=== PATIENT | female | born 1995 | race Caucasian/White ===

== ENCOUNTER 2016-11-01 18:15 | Emergency (ER) | payer MEDICAID, OTHER ==
[2016-11-01 18:55] LABS: BILIRUBIN,URINE NEGATIVE (NEGATIVE)
[2016-11-01 19:01] LABS: UA CHARGE (STRIP ONLY) YES; UR CULTURE IF IND NOT INDICATED
[2016-11-01] MEDS ORDERED: HYDROcod/ACETAM 5/325 MG TABLET PO STA (19:58)
--- NOTE | 2016-11-01 20:02 | ED Physician Documentation ---
History of Present Illness - Stated complaint Stated Complaint: FEMALE /6WK OB - Chief complaint Chief Complaint: General - History obtained from History obtained from: Patient - History of Present Illness Timing: Other (G1 at 6 weeks gestation by LMP, since finding out she was 2 weeks ago she has had intermittent right lower quadrant pain, feeling weak with near syncopal episodes and occasional chest pain. There is no bleeding.) Review of Systems Constitutional: denies: Fever, Chills Nose: denies: Rhinorrhea / runny nose, Congestion Cardiac: denies: Palpitations, Pedal edema, Calf pain Respiratory: denies: Cough, Hemoptysis GI: reports: Nausea, Vomiting. 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 : None HEENT: None Psych: None Musculoskeletal: None Derm: None - Past Surgical History Past Surgical History: No - Present Medications Home Medications: Ambulatory Orders Medication Instructions Recorded Confirmed Cephalexin [Keflex] 500 mg PO Q6H #28 capsule 10/19/12 Ondansetron Odt [Zofran] 4 mg TL Q6H PRN #10 tablet 10/19/12 SULFAM/TRIM 800/160 Prepack 2 1 each PO BID #14 tablet 10/19/12 [BACTRIM DS 800/160 Prepack 2] - Allergies Allergies/Adverse Reactions: Allergies Allergy/AdvReac Type Severity Reaction Status Date / Time No Known Drug Allergies Allergy Verified 11/01/16 18:26 - Social History Does the pt smoke?: No Smoking Status: Never smoker Does the pt drink ETOH?: No Does the pt have substance abuse?: No - Immunizations Immunizations are current?: Yes - POLST Patient has POLST: No PD ED PE NORMAL - Vitals Vital signs reviewed: Yes - General General: Alert and oriented X 3, No acute distress - Neck Neck: Supple, no meningeal sign, No bony TTP - Cardiac Cardiac: RRR, No murmur - Respiratory Respiratory: No respiratory distress, Clear bilaterally - Abdomen Abdomen: Normal bowel sounds, Soft, Other (Mild right pelvic tenderness without surgical signs) - Extremities Extremities: No edema, No calf tenderness / cord - Neuro Neuro: Alert and oriented X 3, Normal speech - Psych Psych: Normal mood, Normal affect Results - Vitals Vitals: Vital Signs - 24 hr 11/01/16 11/01/16 18:24 21:11 Temperature 36.5 C Heart Rate 96 71 Respiratory 18 18 Rate Blood Pressure 125/69 125/76 O2 Saturation 100 100 Oxygen O2 Source Room air - Labs Labs: Laboratory Tests 11/01/16 11/01/16 11/01/16 18:37 20:21 20:21 WBC 11.6 H RBC 4.11 L Hgb 12.6 Hct 38.0 MCV 92.4 MCH 30.8 MCHC 33.3 RDW 13.4 Plt Count 221 MPV 8.8 Neut # 7.7 H Lymph # 2.8 [place] # 0.9 Eos # 0.0 Baso # 0.0 Absolute Nucleated RBC 0.00 Nucleated RBCs 0.0 Sodium 136 Potassium 3.5 Chloride 102 Carbon Dioxide 25 Anion Gap 9.0 BUN 8 Creatinine 0.5 Estimated GFR (MDRD) 156 Glucose 78 Calcium 9.3 Total Bilirubin 1.1 H AST 14 ALT 12 Alkaline Phosphatase 38 L Total Protein 7.5 Albumin 4.2 Globulin 3.3 Albumin/Globulin Ratio 1.3 Lipase 18 L HCG, Quant Urine Color YELLOW Urine Clarity CLEAR Urine pH 6.0 Ur Specific [place] 1.020 Urine Protein NEGATIVE Urine Glucose (UA) NEGATIVE Urine Ketones NEGATIVE Urine Occult Blood NEGATIVE Urine Nitrite NEGATIVE Urine Bilirubin NEGATIVE Urine Urobilinogen 0.2 (NORMAL) Ur Leukocyte Esterase NEGATIVE Ur Microscopic Review NOT INDICATED Urine Culture Comments NOT INDICATED Blood Type 11/01/16 11/01/16 20:21 20:21 WBC RBC Hgb Hct MCV MCH MCHC RDW Plt Count MPV Neut # Lymph # [place] # Eos # Baso # Absolute Nucleated RBC Nucleated RBCs Sodium Potassium Chloride Carbon Dioxide Anion Gap BUN Creatinine Estimated GFR (MDRD) Glucose Calcium Total Bilirubin AST ALT Alkaline Phosphatase Total Protein Albumin Globulin Albumin/Globulin Ratio Lipase HCG, Quant 90798.00 Urine Color Urine Clarity Urine pH Ur Specific [place] Urine Protein Urine Glucose (UA) Urine Ketones Urine Occult Blood Urine Nitrite Urine Bilirubin Urine Urobilinogen Ur Leukocyte Esterase Ur Microscopic Review Urine Culture Comments Blood Type A POSITIVE PD MEDICAL DECISION MAKING - ED course ED course: 21-year-old G1 at 6 weeks by dates presents with right lower quadrant pain, feeling faint, her workup here was negative for ectopic with an IUP seen on ultrasound and otherwise unremarkable labs and vital signs. The patient and family were counseled as to the diagnosis and need for follow- up. I counseled the patient with regard to signs and symptoms that would necessitate an urgent reevaluation in the emergency department. They understand they are welcome to return at any time if worse or if not improving as expected. This document was made in part using voice recognition software. While efforts are made to proofread this documents, sound alike and grammatical errors may occur. Departure - Departure Disposition: 01 Home, Self Care Clinical Impression: Threatened Condition: Good Record reviewed to determine appropriate education?: Yes Instructions: ED Miscarriage Poss Comments: Tylenol as needed for pain, follow-up with your OB, return if worse or if new symptoms develop.
[2016-11-01] MEDS ORDERED: HYDROcod/ACETAM 5/325 MG TABLET ONE (20:06)
[2016-11-01 20:36] LABS: BASOPHILS % (AUTO) 0.4 %; EOSINOPHILS % (AUTO) 0.3 %; HGB - HEMOGLOBIN 12.6 g/dL (12.0-16.0); LYMPHOCYTES # (AUTO) 2.8 10^3/uL (1.5-3.5); LYMPHOCYTES % (AUTO) 24.5 %; MEAN CORPUSCULAR HEMOGLOBIN 30.8 pg (27.0-31.0); MEAN CORPUSCULAR HGB CONC 33.3 g/dL (32.0-36.0); MEAN CORPUSCULAR VOLUME 92.4 fL (81.0-99.0); MEAN PLATELET VOLUME 8.8 fL (7.9-10.8); MONOCYTES # (AUTO) 0.9 10^3/uL (0.0-1.0); MONOCYTES % (AUTO) 8.1 %; NEUTROPHILS # (AUTO) 7.7 10^3/uL (1.5-6.6); NEUTROPHILS % (AUTO) 66.7 %; RED BLOOD COUNT 4.11 10^6/uL (4.20-5.40); RED CELL DISTRIBUTION WIDTH 13.4 % (12.0-15.0); UNCORRECTED WHITE BLOOD COUNT 11.6 x10^3/uL; WHITE BLOOD COUNT 11.6 x10^3/uL (4.8-10.8)
[2016-11-01 20:49] LABS: ALBUMIN/GLOBULIN RATIO 1.3 (1.0-2.2); BILIRUBIN,TOTAL 1.1 mg/dL (0.2-1.0); CALCIUM 9.3 mg/dL (8.5-10.3); CREATININE 0.5 mg/dL (0.4-1.0); POTASSIUM 3.5 mmol/L (3.5-5.0); TOTAL PROTEIN 7.5 g/dL (6.7-8.2)
[2016-11-01 21:12] VITALS: BP 125/76
--- NOTE | 2016-11-01 21:33 | Ultrasound Preliminary Report ---
Exam: US OB First Trimester IMPRESSION: 1. Single viable intrauterine at EGA 7 weeks 0 days with DEL 06/20/2017 based on composite measurements, which is concordant with clinical dates. [facility] SITE ID: [id number]
--- NOTE | 2016-11-01 21:35 | Ultrasound Report ---
EXAM: FIRST TRIMESTER OBSTETRIC ULTRASOUND (Less than 11 weeks) EXAM DATE: 11/01/2016 09:01 PM. CLINICAL HISTORY: RLQ pain, 6week. LMP: 09/12/2016. COMPARISONS: None. TECHNIQUE: Transabdominal and transvaginal ultrasound examination with static image documentation. CLINICAL DATES: EGA 7 weeks 1 day with DEL 06/19/2017 based on LMP. ASSESSMENT: Gestational Sac: Single intrauterine. Mean gestational sac diameter: 21.9 mm = 7 weeks 1 day. Embryo: CRL (crown-rump length) 7.6 mm = 6 weeks 6 days. Cardiac activity: 112 beats per minute. Yolk sac: 3 mm. Amniotic fluid: Not accurately assessed at this gestational age. Early placenta: Not visible at this gestational age. Other: No perigestational fluid collection demonstrated. MATERNAL STRUCTURES: Uterus: Anteverted. Unremarkable. Cervix: Closed. Right Ovary: 4.2 x 2.5 x 2.9 cm, corpus luteum measuring 2.7 x 2.0 x 2.1 cm.. Left Ovary: 3.5 x 2 x 1.9 cm, unremarkable. Free Fluid: None. Other: None. IMPRESSION: 1. Single viable intrauterine at EGA 7 weeks 0 days with DEL 06/20/2017 based on composite measurements, which is concordant with clinical dates. [facility] Referring Provider Line: [phone] SITE ID: [id number]
== END 2016-11-01 22:00 | disposition home or self-care (01) ==
LOC: ED 18:15
DX: O20.0 Threatened abortion (principal); Z3A.01 Less than 8 weeks gestation of pregnancy
CPT/HCPCS: 36415; 76801; 76817; 80053; 81003; 83690; 84702; 85025; 86900; 86901; 99283; A9270; 81001; 87086

== ENCOUNTER 2016-11-13 10:12 | Outpatient (CLI) | payer MEDICAID | END 2016-11-13 10:13 | LOC: LAB.R 10:12 | PROVIDERS: ATTEND Obstetrics & Gynecology | DX: Z36 Encounter for antenatal screening of mother (principal) | CPT/HCPCS: 87081; 87491; 87591 ==

== ENCOUNTER 2016-11-13 10:58 | Outpatient (CLI) | payer MEDICAID ==
[2016-11-13 11:55] LABS: BASOPHILS % (AUTO) 0.3 %; EOSINOPHILS % (AUTO) 0.3 %; HCT - HEMATOCRIT 37.5 % (37.0-47.0); HGB - HEMOGLOBIN 12.6 g/dL (12.0-16.0); LYMPHOCYTES # (AUTO) 1.6 10^3/uL (1.5-3.5); MEAN CORPUSCULAR HEMOGLOBIN 30.9 pg (27.0-31.0); MEAN CORPUSCULAR HGB CONC 33.7 g/dL (32.0-36.0); MEAN CORPUSCULAR VOLUME 91.7 fL (81.0-99.0); MEAN PLATELET VOLUME 8.8 fL (7.9-10.8); MONOCYTES # (AUTO) 0.5 10^3/uL (0.0-1.0); MONOCYTES % (AUTO) 6.1 %; NEUTROPHILS % (AUTO) 73.3 %; RED BLOOD COUNT 4.09 10^6/uL (4.20-5.40); RED CELL DISTRIBUTION WIDTH 13.7 % (12.0-15.0); UNCORRECTED WHITE BLOOD COUNT 8.2 x10^3/uL; WHITE BLOOD COUNT 8.2 x10^3/uL (4.8-10.8)
[2016-11-13 12:05] LABS: BILIRUBIN,URINE NEGATIVE (NEGATIVE)
[2016-11-13 12:05] LABS: BILIRUBIN,DIRECT 0.2 mg/dL (0.1-0.5); BILIRUBIN,TOTAL 1.3 mg/dL (0.2-1.0); TOTAL PROTEIN 7.8 g/dL (6.7-8.2)
[2016-11-13 12:19] LABS: WBC,URINE 0-3 /HPF (0-5)
== END 2016-11-13 10:59 | disposition home or self-care (01) ==
LOC: LAB 10:58
PROVIDERS: ATTEND Obstetrics & Gynecology
DX: Z36 Encounter for antenatal screening of mother (principal)
CPT/HCPCS: 36415; 80076; 81001; 85025; 86762; 86780; 86850; 86900; 86901; 87340; 87389

== ENCOUNTER 2016-12-22 16:41 | Emergency (ER) | payer MEDICAID ==
[2016-12-22 16:46] VITALS: BP 107/65
--- NOTE | 2016-12-23 00:14 | ED Physician Documentation ---
History of Present Illness - Stated complaint Stated Complaint: 13WK PREG/ABD PX/CHILLS - Chief complaint Chief Complaint: Abd Pain - Additonal information Additional information: patient not in room when I went to see her. 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 : None HEENT: None Psych: None Musculoskeletal: None Derm: None - Past Surgical History Past Surgical History: No - Present Medications Home Medications: Ambulatory Orders Medication Instructions Recorded Confirmed Pnv No.115/Iron Fumarate/FA 1 tab PO DAILY 12/22/16 12/22/16 [ 19 Chewable Tablet] - Allergies Allergies/Adverse Reactions: Allergies Allergy/AdvReac Type Severity Reaction Status Date / Time No Known Drug Allergies Allergy Verified 11/01/16 18:26 - Social History Does the pt smoke?: No Smoking Status: Never smoker Does the pt drink ETOH?: No Does the pt have substance abuse?: No - Immunizations Immunizations are current?: Yes - POLST Patient has POLST: No Results - Vitals Vitals: Vital Signs - 24 hr 12/22/16 16:44 Temperature 36.8 C Heart Rate 77 Respiratory 18 Rate Blood Pressure 107/65 O2 Saturation 99 Oxygen O2 Source Room air Departure - Departure Disposition: ED Left Without Being Seen Discharge Date/Time: 12/22/16 18:09
== END 2016-12-22 18:09 | disposition left against medical advice (07) ==
LOC: ED 16:41
DX: R10.9 Unspecified abdominal pain (principal); Z34.91 Encounter for supervision of normal pregnancy, unspecified, first trimester; Z3A.13 13 weeks gestation of pregnancy; Z53.21 Procedure and treatment not carried out due to patient leaving prior to being seen by health care provider

== ENCOUNTER 2017-01-18 18:11 | Outpatient (CLI) | payer MEDICAID ==
[2017-01-18 18:27] LABS: BASOPHILS % (AUTO) 0.1 %; EOSINOPHILS % (AUTO) 0.2 %; HCT - HEMATOCRIT 37.3 % (37.0-47.0); HGB - HEMOGLOBIN 12.6 g/dL (12.0-16.0); LYMPHOCYTES # (AUTO) 2.4 10^3/uL (1.5-3.5); MEAN CORPUSCULAR HEMOGLOBIN 31.5 pg (27.0-31.0); MEAN CORPUSCULAR HGB CONC 33.8 g/dL (32.0-36.0); MEAN CORPUSCULAR VOLUME 93.2 fL (81.0-99.0); MEAN PLATELET VOLUME 8.5 fL (7.9-10.8); MONOCYTES # (AUTO) 0.8 10^3/uL (0.0-1.0); MONOCYTES % (AUTO) 7.6 %; NEUTROPHILS # (AUTO) 7.7 10^3/uL (1.5-6.6); NEUTROPHILS % (AUTO) 70.1 %; RED CELL DISTRIBUTION WIDTH 13.1 % (12.0-15.0)
[2017-01-18 18:44] LABS: ALBUMIN/GLOBULIN RATIO 1.1 (1.0-2.2); BILIRUBIN,TOTAL 0.9 mg/dL (0.2-1.0); CALCIUM 9.2 mg/dL (8.5-10.3); CREATININE 0.5 mg/dL (0.4-1.0); POTASSIUM 3.6 mmol/L (3.5-5.0); TOTAL PROTEIN 7.3 g/dL (6.7-8.2)
[2017-01-18 18:49] LABS: HEMOGLOBIN A1C 0.38 g/dL
== END 2017-01-18 18:12 | disposition home or self-care (01) ==
LOC: LAB 18:11
PROVIDERS: ATTEND Family Medicine
DX: K64.9 Unspecified hemorrhoids (principal); R53.83 Other fatigue; Z33.1 Pregnant state, incidental
CPT/HCPCS: 36415; 80053; 83036; 85025

== ENCOUNTER 2017-02-05 12:27 | Outpatient (CLI) | payer MEDICAID ==
--- NOTE | 2017-02-05 16:29 | Ultrasound Report ---
OB ULTRASOUND: 02/05/2017 CLINICAL INDICATION: anatomy. TECHNIQUE: Real-time scanning was performed with sales representative door to door static images obtained. LAST MENSTRUAL PERIOD 09/13/2016 Clinical Age 20 weeks 5 days US Age 21 weeks 0 days EFW [place] 363 grams EFW% [place]lock -- Heart Rate 144 bpm EDC 06/20/2017 US EDC 06/18/2017 BPD [place] 21 weeks 4 days; Mean mm 51 HC [place] 21 weeks 5 days; Mean mm 194 AC [place] 20 weeks 5 days; Mean mm 155 FL [place] 20 weeks 1 day; Mean mm 32 Presentation breech Placental Location anterior Cervical Length 4.65 cm Amniotic Fluid -- FINDINGS: There is a single viable intrauterine gestation, in breech presentation. heart rate is 144 BPM. The placenta is anterior, without evidence of previa. Amniotic fluid volume is subjectively normal. By size, the fetus measures 21 weeks 0 days (20 weeks 5 days by previous sonogram, 20 weeks 6 days by LMP). The following anatomic structures were visualized and appear normal: The intracranial contents, including the ventricles and posterior fossa; the spine; the heart, including 4-chamber view and outflow tracts, and diaphragm; the abdominal contents, including the stomach, the bilateral kidneys, and urinary bladder, as well as a normal 3-vessel cord insertion; 4 limbs. The facial structures are poorly visualized, due to positioning. No free fluid or adnexal lesion is appreciated. IMPRESSION: SINGLE VIABLE INTRAUTERINE GESTATION, WITH SIZE IN KEEPING WITH LMP DATING. SUBOPTIMAL VISUALIZATION OF FACIAL STRUCTURES SECONDARY TO POSITIONING. OTHERWISE, NORMAL ANATOMIC SURVEY. [facility]
== END 2017-02-05 12:28 | disposition home or self-care (01) ==
LOC: DI 12:27
PROVIDERS: ATTEND Obstetrics & Gynecology
DX: Z36.9 Encounter for antenatal screening, unspecified (principal)
CPT/HCPCS: 76811

== ENCOUNTER 2017-03-13 16:03 | Outpatient (CLI) | payer MEDICAID ==
[2017-03-13 16:30] VITALS: BP 107/59
[2017-03-13 17:11] LABS: BILIRUBIN,URINE NEGATIVE (NEGATIVE); GLUCOSE, URINE (UA) NEGATIVE (NEGATIVE); KETONES,URINE (UA) NEGATIVE (NEGATIVE); LEUKOCYTE ESTERASE, URINE MODERATE (NEGATIVE); NITRITE,URINE NEGATIVE (NEGATIVE); OCCULT BLOOD,URINE NEGATIVE (NEGATIVE); PROTEIN,URINE NEGATIVE (NEGATIVE); UROBILINOGEN,URINE 0.2 (NORMAL) E.U./dL (NORMAL)
[2017-03-13 17:19] LABS: CLARITY,URINE HAZY (CLEAR)
[2017-03-13] MEDS ORDERED: WITCH HAZEL/GLYCERIN 1 EACH MED..PAD TOP PRN (17:22)
[2017-03-13 17:51] LABS: BACTERIA,URINE Few /HPF (None Seen); RBC,URINE 0-5 /HPF (0-5); SQUAMOUS EPITHELIAL CELL,UR MOD Squamous (<= Few)
--- NOTE | 2017-03-14 11:02 | PREOP HISTORY & PHYSICAL ---
DATE OF SERVICE: 03/13/2017 Physician: Cristo Mora MD IDENTIFICATION: A 21-year-old G1, P0 female who is 26 weeks 1 day confirmed with ultrasound early julio harden. CHIEF COMPLAINT: Spotting. HISTORY OF PRESENT ILLNESS: Patient states roughly 1 week ago she had some bright red spotting and t hen again this evening. She denies any trauma or any other issues at this time. She has had an ultrasound kamila t showed no evidence of a previa on ultrasound. She denies any regular contractions. She does have some pain and burning with urination. She complains of a lot of itching in the vaginal area. On examination, FFN was obtained and her cervix was noted to be long, thick, and closed. Wet mount showed evidence of numerous hyphae. Her urinalysis showed evidence of leukocyte esterase. She had moderate leukocyte esterase. Remainder of the UA is pending at this time. IMPRESSION 1. A 21-year-old G1, P0 female. 2. 26 weeks 1 day. 3. No evidence of any cervical change. 4. Vaginal candidiasis. 5. Possible urinary tract infection. PLAN 1. We will administer Diflucan 150 mg p.o. now. 2. We will start her on Macrobid 1 p.o. b.i.d. for 5 days; await results. 3. Patient has an appointment to be seen in the clinic on . Patient strongly encouraged to keep that appointment. She was told to minimize the amount of carbohydrates in her diet. She is also to try Lactobacillus such as in yogurt and/or kombucha. TD: 03/13/2017 19:25
== END 2017-03-13 17:50 | disposition home or self-care (01) ==
LOC: WFO 16:03 → FBP 16:04 → WFO 17:50
PROVIDERS: ATTEND Obstetrics & Gynecology
DX: O98.812 Other maternal infectious and parasitic diseases complicating pregnancy, second trimester (principal); B37.3 Candidiasis of vulva and vagina; Z3A.26 26 weeks gestation of pregnancy; O99.89 Other specified diseases and conditions complicating pregnancy, childbirth and the puerperium; R30.0 Dysuria
CPT/HCPCS: 81001; 82731; 87220; A9270; 87086; 99213

== ENCOUNTER 2017-03-22 13:42 | Outpatient (CLI) | payer MEDICAID ==
--- NOTE | 2017-03-23 09:06 | Ultrasound Report ---
DATE OF SERVICE: 03/22/2017 FOLLOWUP OB ULTRASOUND: 03/22/2017 COMPARISON: OB ultrasound 02/05/2017. INDICATION: Followup for poorly visualized facial features on anatomic screen. TECHNIQUE: Sonographic evaluation of single intrauterine . FINDINGS: Single intrauterine . heart rate 157 beats per minute. EGA by 02/05/2017 ultrasound, 27 weeks 3 days with DEL 06/18/2017. EGA by current ultrasound, 28 weeks 5 days with DEL 06/09/2017. growth appears appropriate. Presentation: Cephalic. Placental position anterior without evidence of placenta previa. PRATEEK: 18.5. Amniotic fluid appears visually adequate. The facial features are now well evaluated and have a normal appearance. Biparietal diameter 7.4 cm corresponds to 29 weeks 4 days. Head circumference 27.0 cm corresponds to 29 weeks 3 days. Abdominal circumference 23.6 cm corresponds to 27 weeks 6 days. Femur length 5.2 cm corresponds to 27 weeks 5 days. Estimated weight 1175 grams corresponds to the 64th percentile. IMPRESSION: Adequate followup evaluation for facial features. Appropriate growth - single intrauterine . TD: 03/22/2017 22:17 MTDD
== END 2017-03-22 13:43 | disposition home or self-care (01) ==
LOC: DI 13:42
PROVIDERS: ATTEND Obstetrics & Gynecology
DX: Z36.2 Encounter for other antenatal screening follow-up (principal)
CPT/HCPCS: 76816

== ENCOUNTER 2017-03-29 10:14 | Outpatient (CLI) | payer MEDICAID ==
[2017-03-29 11:41] LABS: HGB - HEMOGLOBIN 12.2 g/dL (12.0-16.0); MEAN CORPUSCULAR HEMOGLOBIN 33.2 pg (27.0-31.0); MEAN CORPUSCULAR HGB CONC 35.1 g/dL (32.0-36.0); MEAN CORPUSCULAR VOLUME 94.5 fL (81.0-99.0); MEAN PLATELET VOLUME 8.6 fL (7.9-10.8); RED BLOOD COUNT 3.67 10^6/uL (4.20-5.40); RED CELL DISTRIBUTION WIDTH 13.1 % (12.0-15.0); WHITE BLOOD COUNT 9.7 x10^3/uL (4.8-10.8)
== END 2017-03-29 10:15 | disposition home or self-care (01) ==
LOC: LAB 10:14
PROVIDERS: ATTEND Obstetrics & Gynecology
DX: Z34.90 Encounter for supervision of normal pregnancy, unspecified, unspecified trimester (principal)
CPT/HCPCS: 36415; 82950; 86850

== ENCOUNTER 2017-04-13 15:58 | Emergency (ER) | payer MEDICAID ==
[2017-04-13 16:04] VITALS: BP 117/70
[2017-04-13 16:44] LABS: BASOPHILS % (AUTO) 0.3 %; EOSINOPHILS # (AUTO) 0.1 10^3/uL (0.0-0.7); EOSINOPHILS % (AUTO) 0.6 %; HGB - HEMOGLOBIN 12.1 g/dL (12.0-16.0); LYMPHOCYTES # (AUTO) 2.5 10^3/uL (1.5-3.5); LYMPHOCYTES % (AUTO) 19.3 %; MEAN CORPUSCULAR HEMOGLOBIN 32.4 pg (27.0-31.0); MEAN CORPUSCULAR HGB CONC 33.8 g/dL (32.0-36.0); MEAN CORPUSCULAR VOLUME 95.9 fL (81.0-99.0); MEAN PLATELET VOLUME 8.8 fL (7.9-10.8); MONOCYTES # (AUTO) 1.1 10^3/uL (0.0-1.0); MONOCYTES % (AUTO) 8.7 %; NEUTROPHILS # (AUTO) 9.1 10^3/uL (1.5-6.6); NEUTROPHILS % (AUTO) 71.1 %; PLT - PLATELET COUNT 189 10^3/uL (130-450); RED BLOOD COUNT 3.72 10^6/uL (4.20-5.40); WHITE BLOOD COUNT 12.8 x10^3/uL (4.8-10.8)
[2017-04-13 16:57] LABS: ALBUMIN 3.1 g/dL (3.2-5.5); ALBUMIN/GLOBULIN RATIO 0.9 (1.0-2.2); BILIRUBIN,TOTAL 0.5 mg/dL (0.2-1.0); CALCIUM 8.6 mg/dL (8.5-10.3); CREATININE 0.5 mg/dL (0.4-1.0); TOTAL PROTEIN 6.6 g/dL (6.7-8.2)
--- NOTE | 2017-04-13 17:57 | ED Physician Documentation ---
History of Present Illness - Stated complaint Stated Complaint: RECTAL BLEEDING/30WK OB - Chief complaint Chief Complaint: Abd Pain - History obtained from History obtained from: Patient, Family - History of Present Illness Timing: Today Pain level max: 0 Pain level now: 0 Improved by: nothing Worsened by: BM - Additonal information Additional information: Patient is a 1 para 0 who complains of rectal bleeding earlier today, states mostly bright red but occasional clots. Also is complaining of clear discharge, unclear if this is vaginal or rectal. States has had rectal fissures in the past. Is not having any pain. States is not constipated. Has had a colonoscopy in the past as well which was reportedly normal. 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 HEENT: None Psych: None Musculoskeletal: None Derm: None - Past Surgical History Past Surgical History: No - Present Medications Home Medications: Ambulatory Orders Medication Instructions Recorded Confirmed Pnv No.115/Iron Fumarate/FA 1 tab PO DAILY 12/22/16 04/13/17 [ 19 Chewable Tablet] - Allergies Allergies/Adverse Reactions: Allergies Allergy/AdvReac Type Severity Reaction Status Date / Time No Known Drug Allergies Allergy Verified 04/13/17 16:04 - Social History Does the pt smoke?: No Smoking Status: Never smoker Does the pt drink ETOH?: No Does the pt have substance abuse?: No - Immunizations Immunizations are current?: Yes - POLST Patient has POLST: No PD ED PE NORMAL - Vitals Vital signs reviewed: Yes - General General: Alert and oriented X 3, No acute distress - HEENT HEENT: Moist mucous membranes - Neck Neck: Supple, no meningeal sign - Cardiac Cardiac: RRR, Strong equal pulses - Respiratory Respiratory: No respiratory distress, Clear bilaterally - Abdomen Abdomen: Soft, Non tender, Non distended - Female Female : 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 no bleeding. no fissures. no stool in rectal vault.) - Derm Derm: Warm and dry - Neuro Neuro: Alert and oriented X 3 - Psych Psych: Normal mood, Normal affect Results - Vitals Vitals: Vital Signs - 24 hr 04/13/17 16:00 Temperature 36.6 C Heart Rate 89 Respiratory 16 Rate Blood Pressure 117/70 O2 Saturation 99 Oxygen O2 Source Room air - Labs Labs: Laboratory Tests 04/13/17 04/13/17 04/13/17 16:35 16:35 16:35 WBC 12.8 H RBC 3.72 L Hgb 12.1 Hct 35.7 L MCV 95.9 MCH 32.4 H MCHC 33.8 RDW 13.0 Plt Count 189 MPV 8.8 Neut # 9.1 H Lymph # 2.5 [place] # 1.1 H Eos # 0.1 Baso # 0.0 Absolute Nucleated RBC 0.00 Nucleated RBC % 0.0 PT INR APTT Sodium 136 Potassium 3.8 Chloride 103 Carbon Dioxide 24 Anion Gap 9.0 BUN 10 Creatinine 0.5 Estimated GFR (MDRD) 156 Glucose 87 Calcium 8.6 Total Bilirubin 0.5 AST 17 ALT 16 Alkaline Phosphatase 61 Total Protein 6.6 L Albumin 3.1 L Globulin 3.5 Albumin/Globulin Ratio 0.9 L Lipase 20 L Blood Type A POSITIVE Antibody Screen NEGATIVE 04/13/17 16:35 WBC RBC Hgb Hct MCV MCH MCHC RDW Plt Count MPV Neut # Lymph # [place] # Eos # Baso # Absolute Nucleated RBC Nucleated RBC % PT 11.0 INR 1.0 APTT 23.4 L Sodium Potassium Chloride Carbon Dioxide Anion Gap BUN Creatinine Estimated GFR (MDRD) Glucose Calcium Total Bilirubin AST ALT Alkaline Phosphatase Total Protein Albumin Globulin Albumin/Globulin Ratio Lipase Blood Type Antibody Screen PD MEDICAL DECISION MAKING - ED course Complexity details: reviewed old records, reviewed results, re-evaluated patient , considered differential, d/w patient, d/w home planning consultant salesperson ([id number] - Dr. Mora (OB) and recommends send to OB. ) ED course: Patient is a 21-year-old female who presents to the emergency department with reported rectal bleeding. No acute findings on laboratory testing, hemoglobin is stable from prior. Vital signs are stable. No active bleeding in the emergency department. She also has clear discharge, unclear if this is vaginal or rectal, discussed the case with OB, Dr. Mora, who recommends sending her to OB for further evaluation. Patient will be sent to OB. This document was made in part using voice recognition software. While efforts are made to proofread this document, sound alike and grammatical errors may occur. Departure - Departure Disposition: 01 Home, Self Care Clinical Impression: Hematochezia Condition: Good Instructions: ED Hematochezia Stable Follow-Up: Jolene Alvarez MD [Primary Care Provider] - Comments: Go directly to OB today for further eval today. I spoke with Dr. Mora Discharge Date/Time: 04/13/17 18:15
== END 2017-04-13 18:15 | disposition home or self-care (01) ==
LOC: ED 15:58
DX: O26.893 Other specified pregnancy related conditions, third trimester (principal); Z3A.30 30 weeks gestation of pregnancy; K92.1 Melena; O22.43 Hemorrhoids in pregnancy, third trimester
CPT/HCPCS: 36415; 80053; 81001; 81003; 82270; 83690; 85025; 85610; 85730; 86850; 86900; 86901; 87086; 99213; 99283

== ENCOUNTER 2017-04-13 18:29 | Outpatient (CLI) | payer MEDICAID ==
[2017-04-13 18:46] VITALS: BP 113/71
[2017-04-13 20:09] LABS: BILIRUBIN,URINE NEGATIVE (NEGATIVE); CLARITY,URINE CLEAR (CLEAR); GLUCOSE, URINE (UA) NEGATIVE (NEGATIVE); KETONES,URINE (UA) NEGATIVE (NEGATIVE); LEUKOCYTE ESTERASE, URINE NEGATIVE (NEGATIVE); NITRITE,URINE NEGATIVE (NEGATIVE); OCCULT BLOOD,URINE NEGATIVE (NEGATIVE); PROTEIN,URINE NEGATIVE (NEGATIVE); UROBILINOGEN,URINE 0.2 (NORMAL) E.U./dL (NORMAL)
--- NOTE | 2017-04-16 16:34 | CONSULTATION NOTE ---
DATE OF SERVICE: 04/13/2017 Physician: Cristo Mora MD IDENTIFICATION: A 21-year-old G1, P0 female, EDC is 06/19/2017, 30.4weeks. Rh Positive CHIEF COMPLAINT: Rectal bleeding and fluid loss. HISTORY OF PRESENT ILLNESS: The patient states that she had 3 bowel motions today starting at 10 o'clock, at which time she was noted to have some dark red blood accompanying this. She states that she has a history of having had rectal bleeding in the past. She was recently seen in the clinic, at which time she was found to have a rectal fissure. She has had colonoscopy as workup for this. She also notes this vaginal fluid leaking which has been going on for up to a month. She denies contractions at this time. PAST MEDICAL HISTORY: Positive for rectal bleeding, unknown cause. PAST SURGICAL HISTORY: Colonoscopy. CURRENT MEDICATIONS: vitamins. ALLERGIES: NONE KNOWN. HABITS: Denies use of alcohol, tobacco, street or addictive drugs. 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 FAMILY HISTORY: Positive for mother with autoimmune disease, who had diabetes. She has a father with heart disease. PHYSICAL EXAMINATION VITAL SIGNS: Temperature is 97.7, blood pressure is 113/71. GENERAL: Well-developed, well-nourished white female, in no acute distress. HEENT: Pupils are equal, round. Extraocular muscles are intact. Mouth is clear. Thyroid is not palpably enlarged. HEART: Regular rate and rhythm without murmurs. LUNGS: Lung cedeno are clear without rales or wheezes. ABDOMEN: Soft. The uterus is nontender. GENITOURINARY: Speculum examination shows a negative Pool, Fern, and Nitrazine. The cervix appears to be closed at this particular time. RECTA: Examination showed minimal to no blood available. This was sent for guaiac. LABORATORY DATA: White count 12.8, hemoglobin is 12.1, hematocrit is 35.7, platelets are 189. Electrolytes are all within normal limits. Currently a urinalysis is pending. IMPRESSION: A 21-year-old G1, P0, female, 30.4 weeks with rectal bleeding of unknown etiology. She has had a workup. Her hemoglobin is stable, and she is stable at this time. Possible internal hemorrhoids. PLAN: Plan will be to use Proctocort suppositories 30 mg b.i.d. for the next 14 days. She is to follow up in the clinic. TD: 04/13/2017 22:03 ODILIA
== END 2017-04-13 20:16 | disposition home or self-care (01) ==
LOC: FBP 18:29 → WFO 18:29
PROVIDERS: ATTEND Obstetrics & Gynecology
DX: O22.43 Hemorrhoids in pregnancy, third trimester (principal); Z3A.30 30 weeks gestation of pregnancy
CPT/HCPCS: 81001; 81003; 82270; 87086; 99213

== ENCOUNTER 2017-05-10 15:22 | Outpatient (CLI) | payer MEDICAID ==
[2017-05-10 15:43] VITALS: BP 116/57
[2017-05-10 16:04] LABS: BASOPHILS % (AUTO) 0.3 %; EOSINOPHILS # (AUTO) 0.1 10^3/uL (0.0-0.7); EOSINOPHILS % (AUTO) 0.6 %; HGB - HEMOGLOBIN 11.7 g/dL (12.0-16.0); LYMPHOCYTES % (AUTO) 17.2 %; MEAN CORPUSCULAR HEMOGLOBIN 31.5 pg (27.0-31.0); MEAN CORPUSCULAR HGB CONC 33.3 g/dL (32.0-36.0); MEAN CORPUSCULAR VOLUME 94.8 fL (81.0-99.0); MEAN PLATELET VOLUME 8.5 fL (7.9-10.8); MONOCYTES # (AUTO) 1.1 10^3/uL (0.0-1.0); MONOCYTES % (AUTO) 9.3 %; NEUTROPHILS # (AUTO) 8.3 10^3/uL (1.5-6.6); NEUTROPHILS % (AUTO) 72.6 %; PLT - PLATELET COUNT 165 10^3/uL (130-450); RED BLOOD COUNT 3.71 10^6/uL (4.20-5.40); RED CELL DISTRIBUTION WIDTH 12.8 % (12.0-15.0); WHITE BLOOD COUNT 11.4 x10^3/uL (4.8-10.8)
[2017-05-10 16:37] LABS: CREATININE,URINE 28.3 mg/dL; TOTAL PROTEIN,URINE TIMED < 6 mg/dL
== END 2017-05-10 16:23 | disposition home or self-care (01) ==
LOC: WFO 15:22 → FBP 15:24 → WFO 16:23
PROVIDERS: ATTEND Obstetrics & Gynecology
DX: O26.893 Other specified pregnancy related conditions, third trimester (principal); Z3A.34 34 weeks gestation of pregnancy; R03.0 Elevated blood-pressure reading, without diagnosis of hypertension
CPT/HCPCS: 36415; 59025; 82570; 83615; 84156; 84450; 84550; 85025

== ENCOUNTER 2017-05-17 11:42 | Outpatient (CLI) | payer MEDICAID | END 2017-05-17 11:43 | disposition home or self-care (01) | LOC: LAB 11:42 | PROVIDERS: ATTEND Obstetrics & Gynecology | DX: Z3A.35 35 weeks gestation of pregnancy (principal) | CPT/HCPCS: 36415; 82239 ==

== ENCOUNTER 2017-05-24 16:27 | Outpatient (CLI) | payer MEDICAID | END 2017-05-24 23:59 | disposition home or self-care (01) | LOC: LAB.R 16:27 | PROVIDERS: ATTEND Obstetrics & Gynecology | DX: Z36.9 Encounter for antenatal screening, unspecified (principal) | CPT/HCPCS: 87081 ==

== ENCOUNTER 2017-06-13 19:45 | Outpatient (CLI) | payer MEDICAID ==
[2017-06-13 20:11] VITALS: BP 124/68
== END 2017-06-13 21:15 | disposition home or self-care (01) ==
LOC: WFO 19:45 → FBP 19:47 → WFO 21:15
PROVIDERS: ATTEND Obstetrics & Gynecology
DX: Z34.03 Encounter for supervision of normal first pregnancy, third trimester (principal)
CPT/HCPCS: 99213

== ENCOUNTER 2017-06-18 15:17 | Outpatient (CLI) | payer MEDICAID ==
[2017-06-18 15:42] VITALS: BP 118/75
== END 2017-06-18 16:35 | disposition home or self-care (01) ==
LOC: FBP 15:17 → WFO 15:17
PROVIDERS: ATTEND Obstetrics & Gynecology
DX: Z34.03 Encounter for supervision of normal first pregnancy, third trimester (principal)
CPT/HCPCS: 99213

== ENCOUNTER 2017-06-19 17:01 | Inpatient (IN) | payer MEDICAID ==
[2017-06-19 18:13] LABS: RUPTURE OF MEMBRANES PLUS POSITIVE (NEGATIVE)
[2017-06-19] MEDS ORDERED: SODIUM CHLORIDE FLUSH 0.9% 10 ML SYRINGE IVP PRN (18:45)
--- NOTE | 2017-06-19 18:52 | HISTORY & PHYSICAL EXAMINATION ---
Admit History - Instructions Ak Chin/Slash: -Left hand click circles element as positive or present. -Right hand click slashes element as negative or not present. - Visit Reason Visit Reason: Membranes rupture (Pt developed leeking of vaginal fluid at 0730 this AM. continued to have vaginal fluid down her leg. presented this PM about 1710. Positive ROM+) - : 1 Parity: 0 Premature: 0 Ectopic: 0 : 0 Care: positive: [facility] (Pt has been seen since 8 weeks of pregnency with 14 visits. Labs A+, 138 50 gm, rhubella NONIMMUNE) Complications This : positive: None Smoking Status: Never smoker - Mother's Labs Mother's Blood Type: positive: A Mother's RH: positive: Positive GBS: positive: Group B Step Negative Rubella Status: positive: Non-immune Meds/Allgy - Home Medications Home Medications: Ambulatory Orders Medication Instructions Recorded Confirmed Pnv No.115/Iron Fumarate/FA 1 tab PO DAILY 12/22/16 04/13/17 [ 19 Chewable Tablet] - Allergies Allergies/Adverse Reactions: Allergies Allergy/AdvReac Type Severity Reaction Status Date / Time No Known Drug Allergies Allergy Verified 04/13/17 16:04 Physical - Abdominal Exam Vital Signs: Temp Pulse Resp BP Pulse Ox 36.9 C 70 16 136/71 H 99 06/19/17 17:10 06/19/17 17:10 06/19/17 17:10 06/19/17 17:10 06/19/17 17:10 Contraction Intensity: positive: Irritability Uterine Resting Tone: positive: Soft - Monitoring Strip Review: positive: Category I - Presentation Presentation: positive: Vertex - Vaginal Exam Membranes: positive: Membranes ruptured (Positive ROM+) Dilation (in cm): 0 Effacement (%): 75 Station: positive: -3 Cervical Position: positive: Posterior - Speculum Exam Speculum Exam Performed: positive: Yes Findings: positive: Gross leak Plan for Labor - Plan For Labor I expect patient to be DC'd or transferred within 96 hours.: Yes Plan for Labor: Pt is a 22 yo EDC 06/19/2017 by LMP and 8 week US. SROM with out labor and unfavorable Cx Cervidel for cervical ripening.
[2017-06-19] MEDS ORDERED: TERBUTALINE 1 MG/ML VIAL SUBQ SCH (19:00)
[2017-06-19] MEDS ORDERED: DINOPROSTONE 10 MG SUPP VG SCH (19:06)
[2017-06-19] MEDS: LACTATED RINGERS 1,000 ML IV SCH (20:00)
[2017-06-19 20:39] LABS: BASOPHILS # (AUTO) 0.1 10^3/uL (0.0-0.1); BASOPHILS % (AUTO) 0.7 %; EOSINOPHILS # (AUTO) 0.1 10^3/uL (0.0-0.7); EOSINOPHILS % (AUTO) 0.9 %; HGB - HEMOGLOBIN 12.5 g/dL (12.0-16.0); LYMPHOCYTES # (AUTO) 2.9 10^3/uL (1.5-3.5); LYMPHOCYTES % (AUTO) 24.5 %; MEAN CORPUSCULAR HEMOGLOBIN 31.8 pg (27.0-31.0); MEAN CORPUSCULAR HGB CONC 33.7 g/dL (32.0-36.0); MEAN CORPUSCULAR VOLUME 94.1 fL (81.0-99.0); MEAN PLATELET VOLUME 10.4 fL (7.9-10.8); NEUTROPHILS # (AUTO) 7.9 10^3/uL (1.5-6.6); NEUTROPHILS % (AUTO) 65.9 %; PLT - PLATELET COUNT 163 10^3/uL (130-450); RED BLOOD COUNT 3.94 10^6/uL (4.20-5.40); RED CELL DISTRIBUTION WIDTH 12.8 % (12.0-15.0)
[2017-06-19 20:55] LABS: PLATELET ESTIMATE, MANUAL NORMAL (130-450,000) (NORMAL); PLATELET MORPHOLOGY RARE GIANT PLATELETS (NORMAL); RBC MORPHOLOGY (MULTIPLE) NORMAL APPEARANCE (NORMAL)
[2017-06-20] MEDS: fentaNYL 100 MCG/2 ML VIAL IVP PRN ×2 (02:35→12:01)
[2017-06-20] MEDS: LACTATED RINGERS 1,000 ML IV SCH ×4 (03:00→20:48)
[2017-06-20] MEDS ORDERED: miSOPROStol 100 MCG TABLET BC SCH (08:00)
--- NOTE | 2017-06-20 10:22 | PROVIDER PROGRESS NOTE ---
Labor Progress Note - Uterine Monitoring Uterine Monitoring Mode: positive: External toco Contraction Frequency (min/apart): + 7-8 Min Contraction Intensity: positive: Mild (Palpation finds very weak contractions, patient complains of intense back pain.) Uterine Resting Tone: positive: Soft - Monitoring Monitor Mode: positive: Doppler/auscultation Heart Rate Baseline: [id number] Heart Rate Variability: positive: Moderate (6-25 bmp) Accelerations: positive: Present, 15x15 Decelerations: positive: None Strip Review: positive: Category I - Vaginal Exam Dilation (in cm): 1 Effacement (%): 70% Station: -3 (I initially attempted physical examination but the patient complained and requested that I stop. Exam listed is from the patient's nurse) - Labor Progress Note Labor Progress Note/Additional Text: Patient has been ruptured for over 24 hours and therefore qualifies for antibiotics as a prolonged ROM. Ancef was chosen for broad coverage. Patient reports a very sensitive perineum and on my exam there were flecks of white discharge consistent with Johana. Single dose of Diflucan was ordered. We will begin Cytotec oral induction at a dose of 25 mcg every 4 hours. Oral dosing is chosen to avoid vaginal discomfort secondary to Johana vaginitis. This dose will advance to 50 mcg an hour if tolerable. If pain remains an issue we will investigate a early epidural. Reviewed plan with the patient and nursing. Received a morning out brief by Dr. Mora concerning this patient.
--- NOTE | 2017-06-20 10:28 | PROVIDER PROGRESS NOTE ---
Subjective - Prog Note Date Prog Note Date: 06/20/17 Prog Note Time: 11:30 - Subjective Pt reports feeling: No change Subjective: Patient resting quietly in bed. heart tracing remains category 1 with only occasional contractions. We will increase Cytotec oral dosing to 50 mcg every 4 hours. Ancef antibiotics will be started. Objective - Vital Signs/Intake & Output Intake & Output: Intake & Output 06/17/17 06/18/17 06/19/17 06/20/17 23:59 23:59 23:59 23:59 Intake Total 1999 Balance 1999 - Lab Results Fish Bones: 06/19/17 20:00 Other Labs: Lab Results x24hrs 06/19/17 06/19/17 Range/Units 20:00 17:45 WBC 12.0 H (4.8-10.8) x10^3/uL RBC 3.94 L (4.20-5.40) 10^6/uL Hgb 12.5 (12.0-16.0) g/dL Hct 37.1 (37.0-47.0) % MCV 94.1 (81.0-99.0) fL MCH 31.8 H (27.0-31.0) pg MCHC 33.7 (32.0-36.0) g/dL RDW 12.8 (12.0-15.0) % Plt Count 163 (130-450) 10^3/uL MPV 10.4 (7.9-10.8) fL Neut # 7.9 H (1.5-6.6) 10^3/uL Lymph # 2.9 (1.5-3.5) 10^3/uL Hunt # 1.0 (0.0-1.0) 10^3/uL Eos # 0.1 (0.0-0.7) 10^3/uL Baso # 0.1 (0.0-0.1) 10^3/uL Absolute Nucleated RBC 0.00 x10^3/uL Nucleated RBC % 0.0 /100WBC Manual Slide Review Indicated WBC Morphology NORMAL APPEARANCE (NORMAL) Platelet Estimate NORMAL (130-450,000) (NORMAL) Platelet Morphology RARE GIANT PLATELETS (NORMAL) RBC Morph Micro Appear NORMAL APPEARANCE (NORMAL) Membranes Rupture POSITIVE A (NEGATIVE)
[2017-06-20] MEDS: ceFAZolin 2 GM/50 ML 2 GM/50 ML BAG IV SCH ×2 (10:45→18:27)
[2017-06-20] MEDS ORDERED: FLUCONAZOLE 100 MG TABLET PO ONE (11:00)
[2017-06-20] MEDS: ACETAMINOPHEN 325 MG TABLET PO SCH ×3 (11:08→15:57)
[2017-06-20] MEDS: ONDANSETRON 4 MG/2 ML VIAL IVP PRN ×2 (11:19→22:35)
[2017-06-20] MEDS ORDERED: miSOPROStol 100 MCG TABLET PO SCH (12:00)
[2017-06-20] MEDS ORDERED: fent/BUPIV 2 MCG/0.125% 250 ML EP ONE (13:20)
[2017-06-20] MEDS ORDERED: fent/BUPIV 2 MCG/0.125% 250 ML EP PRN (13:37)
[2017-06-20] MEDS ORDERED: BUPIVACAINE 0.25% PF 10 ML VIAL SUBQ ONE (13:42)
[2017-06-20] MEDS ORDERED: PROCHLORPERAZINE 25 MG SUPP PR PRN (13:47)
[2017-06-20] MEDS: SODIUM CHLORIDE FLUSH 0.9% 10 ML SYRINGE IVP SCH ×2 (15:55→15:56)
--- NOTE | 2017-06-20 16:53 | PROVIDER PROGRESS NOTE ---
Labor Progress Note - Uterine Monitoring Uterine Monitoring Mode: positive: External toco Contraction Frequency (min/apart): q3 Contraction Intensity: positive: Mild to moderate Uterine Resting Tone: positive: Soft Other Uterine Monitorin - Monitoring Monitor Mode: positive: External ultrasound Heart Rate Variability: positive: Moderate (6-25 bmp) Accelerations: positive: Present, 15x15 Decelerations: positive: None Strip Review: positive: Category I - Vaginal Exam Dilation (in cm): 4 Effacement (%): 100 Station: 0 Cervical Position: Anterior - Labor Progress Note Labor Progress Note/Additional Text: Patient's nausea was removed by Compazine. She feels well and is pain free with epidural. There are no concerns of well-being and the head is descended. Patient soon to enter active phase.
--- NOTE | 2017-06-20 18:43 | PROVIDER PROGRESS NOTE ---
Labor Progress Note - Uterine Monitoring Uterine Monitoring Mode: positive: External toco Contraction Frequency (min/apart): 3-4.5 Contraction Intensity: positive: Mild to moderate Uterine Resting Tone: positive: Soft - Monitoring Monitor Mode: positive: External ultrasound Heart Rate Variability: positive: Moderate (6-25 bmp) Accelerations: positive: Present, 15x15 Decelerations: positive: None (No significant D cells) Strip Review: positive: Category I - Vaginal Exam Dilation (in cm): 6 Effacement (%): 100% Station: 0 Cervical Position: Anterior - Labor Progress Note Labor Progress Note/Additional Text: Patient making forward progress as evidenced by dilation. Her contraction frequency is decreasing slightly and at some point may require augmentation.
[2017-06-20] MEDS ORDERED: OXYTOCIN/SODIUM CHLORIDE 500 ML IV ONE (20:55)
[2017-06-20] MEDS ORDERED: fentaNYL 100 MCG/2 ML VIAL ONE (21:09)
[2017-06-20] MEDS ORDERED: LIDOCAINE-PF 2% 10 ML AMP SUBQ ONE (21:12)
[2017-06-20] MEDS ORDERED: SODIUM CHLORIDE 0.9% 10 ML VIAL IV ONE (21:12)
[2017-06-20] MEDS ORDERED: fentaNYL 100 MCG/2 ML VIAL IVP ONE (21:12)
[2017-06-20] MEDS ORDERED: OXYTOCIN/SODIUM CHLORIDE 500 ML IV SCH (22:45)
--- NOTE | 2017-06-21 01:20 | PROVIDER PROGRESS NOTE ---
Labor Progress Note - Uterine Monitoring Uterine Monitoring Mode: positive: External toco Contraction Frequency (min/apart): 3-4 min Contraction Intensity: positive: Moderate Uterine Resting Tone: positive: Soft - Monitoring Monitor Mode: positive: External ultrasound Heart Rate Baseline: 110 -130 -140 Heart Rate Variability: positive: Moderate (6-25 bmp) Accelerations: positive: Present, 15x15 Decelerations: positive: Early, Variable, Intermittent (<50% x20 min) Strip Review: positive: Category I - Vaginal Exam Dilation (in cm): 10 Effacement (%): 100% Station: 2 Cervical Position: Anterior - Labor Progress Note Labor Progress Note/Additional Text: Pushing began at 2230 hrs. but patient did not commit herself to pushing until 2300 hrs. She had excellent coaching from nursing and family. With time she began to push with good effort. Typical stage II heart tracing changes were present. Patient was placed on oxygen. She was moved from side to side. It is encouraging that the head is beginning to descend. There is some mild to moderate amount of as expected
[2017-06-21] MEDS: LACTATED RINGERS 1,000 ML IV SCH ×3 (02:08→21:35)
[2017-06-21] MEDS: ceFAZolin 2 GM/50 ML 2 GM/50 ML BAG IV SCH (02:23)
--- NOTE | 2017-06-21 02:28 | PROVIDER PROGRESS NOTE ---
Labor Progress Note - Uterine Monitoring Contraction Frequency (min/apart): 3 minutes Contraction Intensity: positive: Moderate Uterine Resting Tone: positive: Soft - Monitoring Monitor Mode: positive: External ultrasound Heart Rate Baseline: [id number] Heart Rate Variability: positive: Moderate (6-25 bmp) Accelerations: positive: Present, 15x15 Decelerations: positive: Early, Variable Strip Review: positive: Category I - Vaginal Exam Dilation (in cm): 10 Effacement (%): 100% Station: 1 (Station is +1 without pushing and can be advanced down to +2; Moderate Amount of Caput) - Labor Progress Note Labor Progress Note/Additional Text: Patient has been pushing for a 3-1/2 hours with good effort and a total of 4 hours overall. Estimated weight to be between 7 and 7-1/2 pounds. The pelvis does not seem contracted with an obstetric diameter of 12.5, bituberous diameter of 10.5+ and a normal pubic arch. During pushing there was no turtle sign. She was coached well by both nursing staff and family. There is marked vulvar edema. Patient has been ruptured for 48 hours with no foul discharge and has received Ancef 2 g every 6 hours. Patient feels completely exhausted. "I do not want to do this anymore I want a ." Risk and benefits of both continued vaginal trial and were explained in detail. Patient does not feels that she has the strength or emotional reserve to cooperate during a vaginal delivery particularly if difficulties are encountered (shoulder dystocia, episiotomy, vacuum, or hemorrhage) The risks of were reviewed including blood loss, transfusion, infection, damage to internal organs and urinary tract. She was told that due to the prolonged pushing this may not be an easy . She was also informed informed that if she has a in all likelihood her future births will be as well. Family had conference in which she was encouraged to continue with vaginal trial but she firmly rejected this. "I cannot do this!"
--- NOTE | 2017-06-21 02:41 | OPERATIVE REPORT ---
Operative Report - General Admit Date: 06/19/17 Planned Procedure: Primary lower segment transverse section Pre-Op Diagnosis: Failure to descend in second stage of labor after a 4 hour trial; maternal Procedure Performed: Primary lower segment transverse section Post Op Diagnosis: OP Presentation; Meconium;Same as above - Procedure Note Primary Surgeon: Cristo Ayers MD, FACOG Secondary Surgeon: Willem Durham, certified nurse flatware maker Anesthesia Technique: Epidural, Spinal Pathology: Placenta for prolonged rupture of membranes IV Fluids (mL): 400 Estimated Blood Loss (mL): 450 Urine Output (mL): 100 Drain/Tube Type: Other (Thompson & Wound Vac) Complications: None - Other Other Information/Narrative: .Living male infant; weight 3865 g; Apgars 2/2/5/7; Cord gases pending; depressed on reference Dr. Rock's notes
[2017-06-21] MEDS ORDERED: SODIUM CHLORIDE FLUSH 0.9% 10 ML SYRINGE IVP PRN (02:46)
[2017-06-21] MEDS ORDERED: HYDROCORTISONE/PRAMOXINE 10 GM PR PRN (02:46)
[2017-06-21] MEDS ORDERED: diphenhydrAMINE 25 MG CAPSULE PO PRN (02:46)
[2017-06-21] MEDS ORDERED: WITCH HAZEL/GLYCERIN 1 EACH MED..PAD TOP PRN (02:46)
[2017-06-21] MEDS ORDERED: LIDOCAINE-PF 2% 10 ML AMP SUBQ ONE (02:58)
[2017-06-21] MEDS ORDERED: LACTATED RINGERS 1,000 ML IV ONE (03:40)
[2017-06-21] MEDS ORDERED: fentaNYL 250 MCG/5 ML VIAL IVP ONE (04:17)
[2017-06-21] MEDS ORDERED: KETOROLAC 30 MG/ML VIAL IVP ONE (04:17)
[2017-06-21] MEDS ORDERED: OXYTOCIN 10 UNIT/ML VIAL IV ONE (04:17)
[2017-06-21] MEDS ORDERED: MORPHINE PF 5 MG/10 ML AMP EP ONE (04:17)
[2017-06-21] MEDS ORDERED: BUPIVACAINE 0.5% PF 30 ML VIAL SUBQ ONE (04:17)
[2017-06-21] MEDS ORDERED: LACTATED RINGERS 500 ML IV ONE (04:40)
[2017-06-21] MEDS ORDERED: HYDROmorphone 1 MG/ML CARPUJECT IVP PRN (04:54)
--- NOTE | 2017-06-21 05:39 | OPERATIVE REPORT ---
DATE OF SERVICE: 06/21/2017 Physician: Cristo Ayers MD PREOPERATIVE DIAGNOSES 1. Failure to descend in second stage of labor after a 4-hour trial. 2. Maternal fatigue/maternal demand for section. POSTOPERATIVE DIAGNOSES 1. OP presentation. 2. Meconium stained fluid. 3. Failure to descend in second stage of labor after a 4-hour trial. 4. Maternal fatigue/maternal demand for section. NAME OF PROCEDURE: Primary lower segment transverse section. SURGEON: Cristo Ayers MD, FACOG ANESTHESIA: Epidural discontinued; procedure under spinal anesthetic. PICKED EDGE SEWING MACHINE OPERATOR: Cruzito Durham, Certified Nurse Perforating Machine Operator CONSULTANTS: Carter Rock MD, Pediatrics. ESTIMATED BLOOD LOSS: 450. COMPLICATIONS: None. INTRAVENOUS FLUIDS: 400. URINE OUTPUT: 100. FINDINGS: At 0340 hours approx a living male was born weighing 8 pounds 3865 g and scoring Apgars of 2/2/5/7. Arterial cord pH equals 6.97, base excess equals - 15.6. There was meconium-stained fluid and bandolier cord. Reference Dr. Rock's notes. Placenta was delivered intact. The fluid was moderately stained with meconium. There was no foul smell. There was no adherent retroplacental cord or foul smell noted. Tubes and ovaries appeared to be normal. The myometrium has no cavitary defects. TECHNIQUE: Prior to section, I had a detailed discussion with the mother and father of the baby about the relative risks, benefits of versus continuing a vaginal trial. Reference my progress note. The patient elected to proceed with section. Informed consent paperwork was signed. The patient was brought to the operating room and placed in a sitting position on the OR table. Epidural catheter was removed and spinal uneventfully placed. The patient was then moved to the supine. She was prepped and draped in the customary sterile fashion. Timeout procedure was done per protocol. Anesthesia was confirmed through level T10. Abdominal wall was uneventfully opened with a Pfannenstiel incision. The bladder was pushed quite high. Curvilinear hysterotomy was cut with a scalpel and widened with finger traction. Pewter Fabricator secured the head with his right hand and guided it into the hysterotomy. Self Pay Collector provided a moderate amount of fundal pressure and the head was delivered through the laparotomy. Shoulders were delivered without notable difficulty. There was cord entanglement with a bandolier type cord noted. Cord was doubly clamped and transected. was handed to the waiting real estate broker associate, Dr. Rock. Cord blood and cord gas samples were sent. The uterus was exteriorized. The placenta was expressed intact with a gentle massage. The first layer of hysterotomy was an interlock stitch of 2-0 chromic. Imbricating stitch was then done with 0 Vicryl in a cardinal fashion. It was chose not to close the peritoneum to prevent the bladder from the advancing further. The abdominal cavity was lavaged with warm normal saline. The uterus was placed back into the abdomen in its normal position. Operative sites were inspected to ensure there was no active bleeding. We chose not to close the abdominal peritoneum. Rectus muscles were tacked back into the midline with interrupted stitches of 0 Vicryl. Abdominal wall was closed with a running stitch of 0 Vicryl. The subcutaneous space was closed with a running stitch of 2-0 chromic. Skin was closed with subcuticular stitches of 4-0 Monocryl and dressed with a wound VAC. At the end of the case, all sponge, needle and instrument counts were confirmed as correct. The patient was taken to the recovery room in stable condition. TD: 06/21/2017 05:38 ODILIA
[2017-06-21] MEDS ORDERED: SODIUM CHLORIDE FLUSH 0.9% 10 ML SYRINGE IVP SCH (09:00)
[2017-06-21] MEDS ORDERED: SERTRALINE 50 MG TABLET PO SCH (09:00)
[2017-06-21] MEDS: DOCUSATE SODIUM 100 MG CAPSULE PO SCH ×2 (12:45→21:33)
[2017-06-21] MEDS: ACETAMINOPHEN 500 MG TABLET PO SCH ×2 (12:45→21:31)
[2017-06-21] MEDS: IBUPROFEN 600 MG TABLET PO SCH ×2 (12:45→18:37)
[2017-06-21] MEDS: SIMETHICONE CHEW 80 MG TABLET PO SCH ×2 (12:45→21:33)
[2017-06-21 18:23] LABS: BASOPHILS % (AUTO) 0.1 %; EOSINOPHILS % (AUTO) 0.1 %; HGB - HEMOGLOBIN 10.6 g/dL (12.0-16.0); MEAN CORPUSCULAR HEMOGLOBIN 31.7 pg (27.0-31.0); MEAN CORPUSCULAR HGB CONC 33.8 g/dL (32.0-36.0); MEAN CORPUSCULAR VOLUME 93.8 fL (81.0-99.0); MEAN PLATELET VOLUME 9.4 fL (7.9-10.8); MONOCYTES % (AUTO) 8.2 %; NEUTROPHILS % (AUTO) 80.6 %; PLT - PLATELET COUNT 135 10^3/uL (130-450); RED BLOOD COUNT 3.35 10^6/uL (4.20-5.40); RED CELL DISTRIBUTION WIDTH 12.9 % (12.0-15.0); WHITE BLOOD COUNT 19.3 x10^3/uL (4.8-10.8)
[2017-06-21 18:27] LABS: ABNORMAL LYMPHS % (MANUAL) 0 %; BAND NEUTROPHILS % (MANUAL) 0 %
[2017-06-21 18:52] LABS: DIFFERENTIAL COMMENT MANUAL DIFFERENTIAL; LYMPHOCYTES # (MANUAL) 3.3 10^3/uL (1.5-3.5); LYMPHOCYTES % (MANUAL) 17 %; NEUTROPHILS # (MANUAL) 15.1 10^3/uL (1.5-6.6); NEUTROPHILS % (MANUAL) 78 %; PLATELET ESTIMATE, MANUAL NORMAL (130-450,000) (NORMAL); PLATELET MORPHOLOGY NORMAL APPEARANCE (NORMAL); RBC MORPHOLOGY (MULTIPLE) NORMAL APPEARANCE (NORMAL)
[2017-06-21] MEDS: oxyCODONE 5 MG TABLET PO PRN (20:02)
[2017-06-22] MEDS: IBUPROFEN 600 MG TABLET PO SCH ×4 (02:11→20:56)
[2017-06-22] MEDS: oxyCODONE 5 MG TABLET PO PRN ×5 (04:55→20:57)
[2017-06-22] MEDS: ACETAMINOPHEN 500 MG TABLET PO SCH ×3 (04:55→20:56)
[2017-06-22] MEDS: SIMETHICONE CHEW 80 MG TABLET PO SCH ×3 (08:26→20:57)
[2017-06-22] MEDS: DOCUSATE SODIUM 100 MG CAPSULE PO SCH ×2 (08:27→20:56)
--- NOTE | 2017-06-22 08:50 | PROVIDER PROGRESS NOTE ---
Subjective - General Admit Date: 06/19/17 Procedure Date: 06/21/17 Post Op Days: 1 Procedure Performed: Primary lower segment transverse section - Review of Systems Wound/Incisions: positive: Other (Wound VAC functional no skin changes noted) Drain Type: Thompson with clear urine General: positive: No symptoms, Fatigue HEENT: positive: No symptoms Pulmonary: positive: No symptoms Cardiovascular: positive: No symptoms Gastrointestinal: positive: No symptoms, Abdominal pain (Abdominal pain appropriate for recent major surgery), Flatus Genitourinary: positive: Other (Vulvar edema is resolving enough to allow removal of catheter) Musculoskeletal: positive: No symptoms Skin: positive: No symptoms Psychiatric: positive: No symptoms Objective - Patient Data Vital Signs: Vital Signs x48h Temp Pulse Resp BP BP Pulse Ox 06/22/17 08:05 98.1 F 74 18 122/59 L 100 06/22/17 02:56 100/65 06/22/17 02:34 98.8 F 75 16 116/48 L 100 Intake & Output: Intake and Output Totals x24h 06/20/17 06/21/17 06/22/17 23:59 23:59 23:59 Intake Total 3627.5 3713.333 1000 Output Total 130 012 0777 Balance 3102.5 2888.333 -250 - Lab Results Lab Results: 06/21/17 18:06 Other Lab Results: Lab Results x24hrs 06/21/17 Range/Units 18:06 WBC 19.3 H (4.8-10.8) x10^3/uL RBC 3.35 L (4.20-5.40) 10^6/uL Hgb 10.6 L (12.0-16.0) g/dL Hct 31.4 L (37.0-47.0) % MCV 93.8 (81.0-99.0) fL MCH 31.7 H (27.0-31.0) pg MCHC 33.8 (32.0-36.0) g/dL RDW 12.9 (12.0-15.0) % Plt Count 135 (130-450) 10^3/uL MPV 9.4 (7.9-10.8) fL Neut # Not Reportable Lymph # Not Reportable Grady # Not Reportable Eos # Not Reportable Baso # Not Reportable Absolute Nucleated RBC Not Reportable Total Counted 100 Band Neuts % (Manual) 0 (0 - 10) % Abnorm Lymph % (Manual) 0 % Nucleated RBC % Not Reportable Neutrophils # (Manual) 15.1 H (1.5-6.6) 10^3/uL Lymphocytes # (Manual) 3.3 (1.5-3.5) 10^3/uL Monocytes # (Manual) 1.0 (0.0-1.0) 10^3/uL Eosinophils # (Manual) 0.0 (0-0.7) 10^3/uL Basophils # (Manual) 0.0 (0-0.1) 10^3/uL Differential Comment MANUAL DIFFERENTIAL Manual Slide Review Indicated WBC Morphology NORMAL APPEARANCE (NORMAL) Platelet Estimate NORMAL (130-450,000) (NORMAL) Platelet Morphology NORMAL APPEARANCE (NORMAL) RBC Morph Micro Appear NORMAL APPEARANCE (NORMAL) - Current Medications Current Medications: Current Medications Generic Name Dose Route Start Last Admin Trade Name Freq PRN Reason Stop Dose Admin Acetaminophen 1,000 mg 06/21/17 03:00 06/22/17 04:55 Tylenol PO 1,000 mg Q8H PRABHJOT Administration Diphenhydramine HCl 25 mg 06/21/17 02:46 06/21/17 21:33 Benadryl PO 25 mg Q6H PRN Administration ITCHING Docusate Sodium 100 mg 06/21/17 09:00 06/22/17 08:27 Colace 100mg Capsule PO 100 mg BID PRABHJOT Administration Fentanyl 50 mcg 06/19/17 18:45 06/20/17 12:01 Fentanyl IVP 50 mcg Q1H PRN Administration PAIN Cefazolin Sodium/Dextrose 2 gm in 50 mls @ 100 mls/hr 06/20/17 11:00 02:55 Ancef 2 Gm/50 Ml IV Infused Q8H PRABHJOT Infusion Lactated Ringer's 1,000 mls @ 100 mls/hr 06/21/17 03:00 06/22/17 06:00 Lr IV Infused .Q10H PRABHJOT Infusion Ibuprofen 600 mg 06/21/17 03:00 06/22/17 08:22 Motrin PO 600 mg Q6H PRABHJOT Administration Misoprostol 50 mcg 06/20/17 12:00 06/20/17 15:56 Cytotec PO Not Given Q4H PRABHJOT Ondansetron HCl 4 mg 06/19/17 18:45 06/20/17 22:35 Zofran Inj IVP 4 mg Q4H PRN Administration Nausea / Vomiting Oxycodone HCl 5 - 10 mg 06/21/17 19:06 06/22/17 08:27 Roxicodone PO 5 mg Q4HR PRN Administration PAIN Prochlorperazine Maleate 25 mg 06/20/17 13:47 06/20/17 14:51 Compazine Supp MO 25 mg BID PRN Administration Nausea / Vomiting Simethicone 80 mg 06/21/17 06:00 06/22/17 08:26 Mylicon PO 80 mg TID [facility] Administration Sodium Chloride 10 ml 06/21/17 09:00 06/21/17 21:33 Normal Saline Flush 0.9% IVP 10 ml 0100,0900,1700 [facility] Administration Physical Exam - Physical Exam General: positive: No acute distress, Alert HEENT: positive: Moist mucous membranes Neck: positive: Supple w/out meningeal sx Cardiac: positive: Regular Rate (No significant murmur gallop or rub) Resipratory: positive: Clear to ausultation jerry Abdomen: positive: Normal Bowel sounds Female : positive: Enlarged uterus (Uterus enlarged to 17 weeks size firm nontender), Other (Vulvar edema still present but markedly improved from yesterday) Extremities: positive: Normal ROM, No pedal edema, Pedal Pulses Present Skin: positive: Warm and dry Neurologic: positive: Alert and Oriented X 3, Normal motor/no weakness, Normal Sensation, Normal Speech Assessment/Plan - Assessment/Plan Assessment: Patient recovering well from section without evident complication. Vulvar edema has resolved to the point Thompson can be discontinued. Patient nursing without difficulty. Plan: PLAN * Discontinue Thompson * Continue supportive care * Dr. Mora to assume statistical methods professor manager interface role at this time. I have verbally debriefed him of the patient's situation, and management plan.
[2017-06-23] MEDS: oxyCODONE 5 MG TABLET PO PRN ×3 (01:02→10:08)
[2017-06-23] MEDS: IBUPROFEN 600 MG TABLET PO SCH ×2 (03:26→10:08)
[2017-06-23] MEDS: ACETAMINOPHEN 500 MG TABLET PO SCH (05:31)
[2017-06-23 08:29] VITALS: BP 122/67
--- NOTE | 2017-06-23 10:23 | PROVIDER PROGRESS NOTE ---
Subjective - General Admit Date: 06/19/17 Procedure Date: 06/21/17 Post Op Days: 2 Procedure Performed: Primary lower segment transverse section - Review of Systems Wound/Incisions: positive: Dressing dry and intact (Pt has blisters at the lateral asppects of the wound vac), Other (Wound VAC functional no skin changes noted) Drain Type: Thompson with clear urine General: positive: No symptoms (Pain 4/10. Pt states that she has adiquit pain control.), Fatigue HEENT: positive: No symptoms Pulmonary: positive: No symptoms Cardiovascular: positive: No symptoms Gastrointestinal: positive: No symptoms, Abdominal pain (Abdominal pain appropriate for recent major surgery), Flatus Genitourinary: positive: Other (Vulvar edema is resolving enough to allow removal of catheter) Musculoskeletal: positive: No symptoms Skin: positive: No symptoms Psychiatric: positive: No symptoms Objective - Patient Data Reviewed Vital Signs: Yes Vital Signs: Vital Signs x48h Temp Pulse Resp BP Pulse Ox 06/23/17 08:25 36.8 C 76 18 122/67 99 06/23/17 04:26 36.9 C 66 16 112/62 99 Intake & Output: Intake and Output Totals x24h 06/21/17 06/22/17 06/23/17 23:59 23:59 23:59 Intake Total 3713.333 1000 Output Total 825 3500 Balance 2888.333 -2500 - Lab Results Lab Results: 06/21/17 18:06 - Current Medications Current Medications: Current Medications Generic Name Dose Route Start Last Admin Trade Name Freq PRN Reason Stop Dose Admin Acetaminophen 1,000 mg 06/21/17 03:00 06/23/17 05:31 Tylenol PO 1,000 mg Q8H PRABHJOT Administration Diphenhydramine HCl 25 mg 06/21/17 02:46 06/21/17 21:33 Benadryl PO 25 mg Q6H PRN Administration ITCHING Docusate Sodium 100 mg 06/21/17 09:00 06/22/17 20:56 Colace 100mg Capsule PO 100 mg BID PRABHJOT Administration Hydrocortisone/Pramoxine 1 spray 06/21/17 02:46 06/22/17 21:20 Epifoam AL 20 spray QID PRN Administration Hemorrhoids Lactated Ringer's 1,000 mls @ 100 mls/hr 06/21/17 03:00 06/22/17 06:00 Lr IV Infused .Q10H PRABHJOT Infusion Ibuprofen 600 mg 06/21/17 03:00 06/23/17 10:08 Motrin PO 600 mg Q6H PRABHJOT Administration Ondansetron HCl 4 mg 06/19/17 18:45 06/20/17 22:35 Zofran Inj IVP 4 mg Q4H PRN Administration Nausea / Vomiting Oxycodone HCl 5 - 10 mg 06/21/17 19:06 06/23/17 10:08 Roxicodone PO 5 mg Q4HR PRN Administration PAIN Prochlorperazine Maleate 25 mg 06/20/17 13:47 06/20/17 14:51 Compazine Supp AL 25 mg BID PRN Administration Nausea / Vomiting Simethicone 80 mg 06/21/17 06:00 06/22/17 20:57 Mylicon PO 80 mg TID PRABHJOT Administration Sodium Chloride 10 ml 06/21/17 09:00 06/21/17 21:33 Normal Saline Flush 0.9% IVP 10 ml 0100,0900,1700 PRABHJOT Administration Witch Sangeetha/Glycerin 1 each 06/21/17 02:46 06/22/17 21:20 Tucks TOP 1 each QID PRN Administration Hemorrhoids - Physical Exam Respiratory: positive: Chest non-tender, No respiratory distress, Breath sounds nml Cardiovascular: positive: Regular rate & rhythm, No murmur, No gallop Abdomen: positive: Non-tender, Nml bowel sounds, No distention, Mass (U-2) Back: negative: CVA tenderness (R), CVA tenderness (L) Skin: positive: Color nml, No rash Extremities: negative: Calf tenderness, Seth's sign/cords Impression/Plan - Problem List Problem List: POD #2 progressing well. Discussed Discharge. Pt wants to go home today. reviewed Contraception Breast feeding and mastitis. Discharge meds Oxycodone 5 mg # 20 Motrin 800 mg Colace 100 mg #60 RTC on eweek for wound Vac removal.
[2017-06-23] MEDS ORDERED: MEASLES,MUMPS & RUBELLA VACC 0.5 ML VIAL SUBQ ONE (11:45)
[2017-06-23] MEDS ORDERED: WATER FOR INJECTION,STERILE 0 ML ONE (12:30)
[2017-06-23] MEDS ORDERED: METHYLERGONOVINE 0.2 MG/ML AMP ONE (12:36)
[2017-06-23] MEDS: DOCUSATE SODIUM 100 MG CAPSULE PO SCH (13:52)
--- NOTE | 2017-06-23 13:57 | Labor Flowsheet ---
Labor Flowsheet Datetime Report Generated by CPN: 06/23/2017 13:57 Datetime: 06/23/2017 08:25 VITAL SIGNS NBP Sys/Anju/Mean (mmHg): 122 : 67 : 79 Pulse: 84 LaborFlag: Labor Datetime: 06/22/2017 08:05 SpO2 (%): 99 Datetime: 06/21/2017 03:06 Patient Care Comments: To OR via bed w/TURN MACHINE OPERATOR Datetime: 06/21/2017 03:02 UTERINE ACTIVITY Monitor Mode: External Frequency (min): 2-4 Quality: Strong Duration (sec): 50-100 Pattern: Normal: <= 5 Contractions in 10 Minutes Resting Tone (Palpate): Relaxed ASSESSMENT A Monitor Mode: External US FHR Baseline Rate : 150 Variability: Minimal - Undetectable to <=5 bpm Decelerations: Variable Category: Category II Nausea/Vomiting: Present Oxygen Method: Non-Rebreather Patient Position/Activity: High Fowlers STAGE 2 Pushing: Urge to Push; Involuntary Pushing Stage 2 Comments: grunting w/pushing Datetime: 06/21/2017 02:52 Anesthesia Comments: Edward NEWS CLIPPING CUTTER here Datetime: 06/21/2017 02:34 Temperature (C): 37.3 Datetime: 06/21/2017 02:30 Accelerations: 15X15 Datetime: 06/21/2017 02:25 Antibiotics: Ancef IV (Gm) @ 2 Datetime: 06/21/2017 02:00 Stage of : Labor COMMUNICATION Communication: Provider at Bedside Notification Reason: Status Update; Labor Status; Pain Communication Comments: Dr. Ayers here to discuss options: if pt wants to keep pushing and delivery vaginally, then he would most likely need to give pt an episiotomy and use a vacuum; or if the pt wa nted a because at this point she was exhausted and feeling like she couldn't push anymore a nd that the pain was too much. Datetime: 06/21/2017 01:32 Pushing Progress: No Descent with Effective Pushing Datetime: 06/21/2017 00:30 Comments: accels present Datetime: 06/20/2017 23:06 Provider Notified (Name): DrWilfred Ayers Datetime: 06/20/2017 22:55 Pushing Position: Pushing with Contractions; Pushing Lithotomy Datetime: 06/20/2017 22:29 VAGINAL EXAM Dilatation (cm): 10.0 Effacement (%): 100 Station: 2 Exam by: Spear RNC Vaginal Bleeding: Normal Show Datetime: 06/20/2017 22:07 Pain Presence: None/Denies Pain Assessment Comments: Pt is feeling relief from epidural bolus Datetime: 06/20/2017 21:06 Monitor Interventions for FHR: Ultrasound Adjusted Datetime: 06/20/2017 21:03 ANESTHESIA Anesthesia Plans: Epidural Epidural Procedure Other: Redose Datetime: 06/20/2017 20:48 Contraction Comments: ? late vs variable Datetime: 06/20/2017 20:20 Cervix, Position: Anterior Datetime: 06/20/2017 20:15 Anesthesia Level Check: T7 Datetime: 06/20/2017 20:04 Monitor Interventions for UA: [place] Adjusted Datetime: 06/20/2017 19:53 PAIN Pain Scale: 5 Pain Type: Cramping Pain Coping: Talking Through Contractions; Breathing Through Contractions MATERNAL ASSESSMENT Level of Consciousness: Fully Conscious Headache: Denies Breath Sounds, Left: Clear and Equal Breath Sounds, Right: Clear and Equal RUQ Epigastric Pain: Denies Maternal Comments: numbness/tingling legs and feet pt says from epidural Datetime: 06/20/2017 18:45 FHR Baseline Changes: No Baseline Change Datetime: 06/20/2017 18:36 Strip Reviewed by: DrWilfred Ayers Datetime: 06/20/2017 18:20 Respirations: 16 Datetime: 06/20/2017 16:42 Cervix, Consistency: Soft Datetime: 06/20/2017 15:05 Antiemetics/Antacids: Compazine Suppository Medication Comments: 25mg Datetime: 06/20/2017 15:00 I/O Interventions: Thompson Cath Inserted Datetime: 06/20/2017 13:07 Epidural Procedure: Loading Dose Datetime: 06/20/2017 13:00 PROCEDURE TIME OUT Procedure Verify: Correct Patient Identity; Correct Side and Site are Marked; Accurate Procedure Co nsent Form; Agreement on Procedure to be Done; Correct Patient Position; Addressed Need to Administer Antibiotics or Fluids for Irrigation; Safety Precautions Based on Patient History or Medication Use Epidural Positioning: Sitting Datetime: 06/20/2017 12:24 PATIENT CARE IV/Blood Work: IV Bolus Started Datetime: 06/20/2017 12:02 MEDICATIONS Analgesics/Sedatives: Fentanyl (mcg) @ 50 Datetime: 06/20/2017 10:17 Temperature Route: Oral Datetime: 06/20/2017 07:45 Cervical Ripening Agents: Cytotec @ 25
--- NOTE | 2017-06-24 01:32 | DISCHARGE SUMMARY ---
Physician: Cristo Mora MD DATE OF ADMISSION: 06/19/2017 DATE OF DISCHARGE: 06/23/2017 ADMITTING DIAGNOSES 1. Term cyesis. 2. Spontaneous rupture of membranes without labor. DISCHARGE DIAGNOSES 1. Term cyesis. 2. Spontaneous rupture of membranes without labor. 3. Arrest of descent and failure of patient to continue pushing. PROCEDURES 1. Cervidil. 2. Cytotec. 3. Epidural. 4. Pitocin augmentation. 5. Primary low transverse section. PRESENTING HISTORY: The patient is a 22-year-old G1, P0, female whose estimated date of confinement was 06/19/2017 by LMP, by 8-week ultrasound. She presents with spontaneous rupture of membranes the day previously. At time of admission, she had an unfavorable cervix, which was noted to be 0, 75% and -3. Her course was unremarkable. She had early and multiple, numerous OB visits. LABORATORY DATA: CBC on admission showed a white count of 12.0. Her hemoglobin was 12.5. Hematocrit was 37.1. Platelets were 163. Postoperative day 0, her white count was 19.3. Hemoglobin was 10.6. Hematocrit was 31.4. Platelets were 135. HOSPITAL COURSE: The patient was admitted and started on Cervidil for cervical ripening. The following morning, there was minimal change, so she was changed to Cytotec 25 mg and then 50 mg orally. She did, indeed, dilate her cervix. She had an epidural placed for labor analgesia. She progressed to complete at about 2230 hours. She pushed, some of which were effective but, with time, became less and less and eventually demanded a section. At time of section, a live male with Apgars of 2, 2, 5, and 7 was delivered. Weight was 3865. Dr. Rock was present at the time of delivery. Postoperatively, the patient has done well. A wound VAC was placed. She has developed some blisters at the lateral aspect of this. She states she is having good pain control. She has been offered to discharge today and she would request this. DISCHARGE MEDICATIONS 1. Oxycodone 5 mg 1 p.o. every 4-6 hours, #20. 2. Motrin 800 mg. 3. Colace 100 mg. We have discussed contraception as well as . She is to return to the office in 1 week, at which time, the wound VAC will be removed. The patient has been given precautions about chills, fevers, temperatures. TD: 06/24/2017 01:31 ODILIA
== END 2017-06-23 13:30 | disposition home or self-care (01) | DRG 765 ==
LOC: WFO 17:01 → FBP 17:02 → WFO 18:45 → FBP 18:46
PROVIDERS: ADMIT Obstetrics & Gynecology; ATTEND Obstetrics & Gynecology
PROC: 3E0P7VZ Introduction of Hormone into Female Reproductive, Via Natural or Artificial Opening (ICD-10-PCS; 2017-06-19)
PROC: 10D00Z1 Extraction of Products of Conception, Low, Open Approach (ICD-10-PCS; principal; 2017-06-21 03:00)
DX: O42.12 Full-term premature rupture of membranes, onset of labor more than 24 hours following rupture (principal); O98.82 Other maternal infectious and parasitic diseases complicating childbirth; B37.3 Candidiasis of vulva and vagina; O64.0XX0 Obstructed labor due to incomplete rotation of fetal head, not applicable or unspecified; O75.81 Maternal exhaustion complicating labor and delivery; O76 Abnormality in fetal heart rate and rhythm complicating labor and delivery; O71.82 Other specified trauma to perineum and vulva; O77.0 Labor and delivery complicated by meconium in amniotic fluid; O63.1 Prolonged second stage (of labor); O66.40 Failed trial of labor, unspecified; O69.82X0 Labor and delivery complicated by other cord entanglement, without compression, not applicable or unspecified; Z37.0 Single live birth; Z3A.40 40 weeks gestation of pregnancy; Z28.3 Underimmunization status
CPT/HCPCS: 36415; 84112; 85025; 87070; 87076; 87205; 88307; 99213

== ENCOUNTER 2017-09-06 17:33 | Outpatient (CLI) | payer MEDICAID | END 2017-09-06 17:34 | disposition home or self-care (01) | LOC: LAB.R 17:33 | PROVIDERS: ATTEND Obstetrics & Gynecology | DX: Z11.3 Encounter for screening for infections with a predominantly sexual mode of transmission (principal) | CPT/HCPCS: 87491; 87591 ==

== ENCOUNTER 2017-09-28 08:00 | Outpatient (CLI) | payer MEDICAID | END 2017-09-28 08:01 | disposition home or self-care (01) | LOC: LAB.R 08:00 | PROVIDERS: ATTEND Obstetrics & Gynecology | DX: N89.8 Other specified noninflammatory disorders of vagina (principal) | CPT/HCPCS: 87480; 87510; 87660 ==

== ENCOUNTER 2018-01-03 16:50 | Emergency (ER) | payer MEDICAID ==
[2018-01-03 17:04] VITALS: BP 115/60
[2018-01-03 17:56] LABS: BILIRUBIN,URINE NEGATIVE (NEGATIVE); GLUCOSE, URINE (UA) NEGATIVE (NEGATIVE); KETONES,URINE (UA) NEGATIVE (NEGATIVE); LEUKOCYTE ESTERASE, URINE NEGATIVE (NEGATIVE); NITRITE,URINE NEGATIVE (NEGATIVE); OCCULT BLOOD,URINE NEGATIVE (NEGATIVE); PROTEIN,URINE NEGATIVE (NEGATIVE); UROBILINOGEN,URINE 0.2 (NORMAL) E.U./dL (NORMAL)
[2018-01-03 17:59] LABS: CLARITY,URINE CLEAR (CLEAR); HCG UR QUAL NEGATIVE
--- NOTE | 2018-01-03 18:11 | ED Physician Documentation ---
PD HPI FEMALE - Stated complaint Stated Complaint: FEM /5 DAYS - Chief complaint Chief Complaint: UTI - History obtained from History obtained from: Patient - History of Present Illness Timing - onset: How many days ago (5) Timing - duration: Days (5) Timing - details: Gradual onset Pain level max: 0 Pain level max: 0 Associated symptoms: Dysuria, Urinary frequency. 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 : None HEENT: None Psych: None Musculoskeletal: None Derm: None - Past Surgical History Past Surgical History: No - Present Medications Home Medications: Ambulatory Orders Medication Instructions Recorded Confirmed Pnv No.115/Iron Fumarate/FA 1 tab PO DAILY 12/22/16 04/13/17 [ 19 Chewable Tablet] Cephalexin [Keflex] 500 mg PO Q6H #20 capsule 01/03/18 - Allergies Allergies/Adverse Reactions: Allergies Allergy/AdvReac Type Severity Reaction Status Date / Time No Known Drug Allergies Allergy Verified 01/03/18 17:04 - Social History Does the pt smoke?: No Smoking Status: Never smoker Does the pt drink ETOH?: No Does the pt have substance abuse?: No - Immunizations Immunizations are current?: Yes - POLST Patient has POLST: No PD ED PE NORMAL - Vitals Vital signs reviewed: Yes - General General: Alert and oriented X 3, No acute distress - HEENT HEENT: Moist mucous membranes - Neck Neck: Supple, no meningeal sign - Cardiac Cardiac: RRR - Respiratory Respiratory: No respiratory distress, Clear bilaterally - Abdomen Abdomen: Soft, Non tender, Non distended, Other (No peritoneal signs) - Female Female : Pt declined - Back Back: No CVA TTP, No spinal TTP - Derm Derm: Warm and dry - Neuro Neuro: Alert and oriented X 3 - Psych Psych: Normal mood, Normal affect Results - Vitals Vitals: Vital Signs - 24 hr 01/03/18 17:02 Temperature 36.6 C Heart Rate 92 Respiratory 18 Rate Blood Pressure 115/60 O2 Saturation 99 Oxygen O2 Source Room air - Labs Labs: Laboratory Tests 01/03/18 01/03/18 17:10 17:10 Urine Color LT. YELLOW Urine Clarity CLEAR Urine pH 6.0 Ur Specific [place] <=1.005 <=1.005 Urine Protein NEGATIVE Urine Glucose (UA) NEGATIVE Urine Ketones NEGATIVE Urine Occult Blood NEGATIVE Urine Nitrite NEGATIVE Urine Bilirubin NEGATIVE Urine Urobilinogen 0.2 (NORMAL) Ur Leukocyte Esterase NEGATIVE Ur Microscopic Review NOT INDICATED Urine Culture Comments NOT INDICATED Urine HCG, Qual NEGATIVE PD MEDICAL DECISION MAKING - ED course Complexity details: reviewed results, re-evaluated patient, considered differential, d/w patient ED course: Patient is a 22-year-old female with symptoms that are consistent with a UTI, but negative UA. She did urinate just prior to giving the urine sample, therefore we will trial her on antibiotics and see how she progresses. She did declines a pelvic examination at this point. She does understand that if she fa ils to improve she will likely need further evaluation and likely pelvic examination. Patient counseled regarding signs and symptoms for which I believe and urgent re-evaluation would be necessary. Patient with good understanding of and agreement to plan and is comfortable going home at this time This document was made in part using voice recognition software. While efforts are made to proofread this document, sound alike and grammatical errors may occur. Departure - Departure Disposition: 01 Home, Self Care Clinical Impression: Urinary tract infection Qualifiers: Urinary tract infection type: acute cystitis Hematuria presence: without hematuria Qualified Code(s): N30.00 - Acute cystitis without hematuria Condition: Good Instructions: ED UTI Cystitis Female Follow-Up: Jolene Alvarez MD [Primary Care Provider] - Within 1 week Prescriptions: Cephalexin [Keflex] 500 mg PO Q6H #20 capsule Comments: Take all antibiotics until gone. Return if you worsen. If your symptoms do not clear with antibiotic treatment, you will need further evaluation. Discharge Date/Time: 01/03/18 18:22
== END 2018-01-03 18:22 | disposition home or self-care (01) ==
LOC: ED 16:50
DX: N30.00 Acute cystitis without hematuria (principal)
CPT/HCPCS: 81001; 81003; 81025; 87086; 99282; 99283

== ENCOUNTER 2018-06-09 08:59 | Emergency (ER) | payer MEDICAID ==
[2018-06-09 09:07] VITALS: BP 114/65
[2018-06-09] MEDS ORDERED: IBUPROFEN 800 MG TABLET PO STA (10:07)
[2018-06-09] MEDS ORDERED: cephALEXin 250 MG CAPSULE PO STA (10:07)
--- NOTE | 2018-06-09 10:09 | ED Physician Documentation ---
PD HPI HEENT - Stated complaint Stated Complaint: SINUS CONGESTION/SORE THROAT - Chief complaint Chief Complaint: Heent - History obtained from History obtained from: Patient - History of Present Illness Timing - onset: How many days ago (3) Timing - duration: Days (3) Timing - details: Still present (3) Location: Sinuses, Throat Associated symptoms: Congestion Similar symptoms before: Has not had sx before - Additional information Additional information: The patient is a 23-year-old female who presents with sore throat and sinus congestion that started 3 days ago and has persisted since that time. She also complains of right earache and headache. She denies cough, fever, nausea or vomiting. She denies history of similar symptoms in the past. 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 : None HEENT: None Psych: None Musculoskeletal: None Derm: None - Past Surgical History Past Surgical History: Yes /GATE TENDER: section - Present Medications Home Medications: Ambulatory Orders Medication Instructions Recorded Confirmed Ibuprofen [Motrin] 800 mg PO Q8H PRN #30 tablet 06/09/18 Ondansetron [Ondansetron Odt] 4 mg PO QID PRN 06/09/18 06/09/18 cephALEXin [Cephalexin] 500 mg PO TID #21 tablet 06/09/18 - Allergies Allergies/Adverse Reactions: Allergies Allergy/AdvReac Type Severity Reaction Status Date / Time No Known Drug Allergies Allergy Verified 06/09/18 09:07 - Social History Does the pt smoke?: No Smoking Status: Never smoker Does the pt drink ETOH?: No Does the pt have substance abuse?: No - Immunizations Immunizations are current?: Yes - POLST Patient has POLST: No PD ED PE NORMAL - Vitals Vital signs reviewed: Yes (normal) - General General: Alert and oriented X 3, Well developed/nourished - HEENT HEENT: Atraumatic, EOMI, Ears normal, Other (Oropharynx is erythematous with enlarged tonsils with exudates bilaterally.) - Neck Neck: Supple, no meningeal sign, No adenopathy - Cardiac Cardiac: RRR, No murmur - Respiratory Respiratory: No respiratory distress - Abdomen Abdomen: Soft, Non tender - Back Back: No CVA TTP - Derm Derm: No rash - Extremities Extremities: No edema, No calf tenderness / cord - Neuro Neuro: Alert and oriented X 3, No motor deficit, Normal speech Results - Vitals Vitals: Vital Signs - 24 hr 06/09/18 09:04 Temperature 36.7 C Heart Rate 92 Respiratory 18 Rate Blood Pressure 114/65 O2 Saturation 97 Oxygen O2 Source Room air PD MEDICAL DECISION MAKING - ED course Complexity details: considered differential, d/w patient ED course: The patient's presentation is most consistent with acute tonsillitis. There is no clinical evidence of peritonsillar abscess, otitis media, meningitis, or pneumonia. Treatment in the emergency department included administration of cephalexin 500 mg orally and ibuprofen 800 mg orally. She is being discharged with a prescription for cephalexin. I discussed with her the expected course of illness, antibiotic treatment and outpatient follow-up, as well as potentially worrisome signs or symptoms that should prompt reevaluation in the emergency department. Departure - Departure Disposition: 01 Home, Self Care Clinical Impression: Acute tonsillitis Qualifiers: Pharyngitis/tonsillitis etiology: unspecified etiology Qualified Code(s): J03.90 - Acute tonsillitis, unspecified Condition: Stable Instructions: ED Tonsillitis Follow-Up: Jolene Alvarez MD [Primary Care Provider] - Prescriptions: cephALEXin [Cephalexin] 500 mg PO TID #21 tablet Ibuprofen [Motrin] 800 mg PO Q8H PRN #30 tablet PRN Reason: PAIN &/OR FEVER Comments: Gargle with cool liquids. Take cephalexin 3 times daily as prescribed. You can use ibuprofen, up to 800 mg 3 times daily for its anti-inflammatory effect. Follow-up with your primary physician within 2 weeks. Call to schedule an appointment. Return to the emergency department if you develop increasing difficulty swallowing, or otherwise worsening symptoms.
== END 2018-06-09 10:48 | disposition home or self-care (01) ==
LOC: ED 08:59
DX: J03.90 Acute tonsillitis, unspecified (principal)
CPT/HCPCS: 99283; A9270

== ENCOUNTER 2018-07-18 08:00 | Outpatient (CLI) | payer MEDICAID | END 2018-07-18 08:01 | disposition home or self-care (01) | LOC: LAB.WCP 08:00 | PROVIDERS: ATTEND Nurse Practitioner | DX: R30.0 Dysuria (principal); R53.83 Other fatigue | CPT/HCPCS: 87491; 87591 ==

== ENCOUNTER 2018-08-06 08:00 | Outpatient (CLI) | payer MEDICAID | END 2018-08-06 23:59 | disposition home or self-care (01) | LOC: LAB.R 08:00 | PROVIDERS: ATTEND Family Medicine | DX: R30.0 Dysuria (principal) | CPT/HCPCS: 87086 ==

== ENCOUNTER 2018-08-30 21:08 | Emergency (ER) | payer MEDICAID ==
[2018-08-30] MEDS ORDERED: cephALEXin 250 MG CAPSULE PO STA (22:31)
--- NOTE | 2018-08-30 22:32 | ED Physician Documentation ---
PD HPI HEENT - Stated complaint Stated Complaint: SORE THROAT/FEVER/HEADACHE - Chief complaint Chief Complaint: Heent - History obtained from History obtained from: Patient - History of Present Illness Timing - onset: How many days ago (3) Timing - duration: Days (3) Timing - details: Gradual onset Pain level max: 5 Pain level now: 5 Location: Throat Improves: Nothing Worsens: Swalllowing Associated symptoms: Fever (subjective). 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 : None HEENT: None Psych: None Musculoskeletal: None Derm: None - Past Surgical History Past Surgical History: Yes /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: section - Present Medications Home Medications: Ambulatory Orders Medication Instructions Recorded Confirmed Ibuprofen [Motrin] 800 mg PO Q8H PRN #30 tablet 06/09/18 Ondansetron [Ondansetron Odt] 4 mg PO QID PRN 06/09/18 06/09/18 cephALEXin [Cephalexin] 500 mg PO TID #21 tablet 06/09/18 Cephalexin [Keflex] 500 mg PO Q6H #40 capsule 08/30/18 - Allergies Allergies/Adverse Reactions: Allergies Allergy/AdvReac Type Severity Reaction Status Date / Time No Known Drug Allergies Allergy Verified 06/09/18 09:07 - Social History Does the pt smoke?: No Smoking Status: Never smoker Does the pt drink ETOH?: No Does the pt have substance abuse?: No - Immunizations Immunizations are current?: Yes - POLST Patient has POLST: No PD ED PE NORMAL - Vitals Vital signs reviewed: Yes - General General: Alert and oriented X 3, No acute distress, Well developed/nourished - HEENT HEENT: Ears normal, Moist mucous membranes, Other (Posterior pharyngeal erythema with tonsillar exudates. Uvula midline. No trismus.) - Neck Neck: Supple, no meningeal sign, Other (Shotty anterior lymphadenopathy) - Cardiac Cardiac: RRR - Respiratory Respiratory: No respiratory distress, Clear bilaterally - Derm Derm: Warm and dry - Neuro Neuro: Alert and oriented X 3 - Psych Psych: Normal mood, Normal affect Results - Vitals Vitals: Vital Signs - 24 hr 08/30/18 21:18 Temperature 37.0 C Heart Rate 81 Respiratory 18 Rate Blood Pressure 111/60 O2 Saturation 96 Oxygen O2 Source Room air - Labs Labs: Laboratory Tests 08/30/18 21:20 Group A Strep Rapid Negative PD MEDICAL DECISION MAKING - ED course Complexity details: reviewed results, considered differential, d/w patient ED course: Patient with what appears to be pharyngitis. Rapid strep is negative, but may be a different strain of strep. As she has had strep recently, will place on antibiotics. She is well-appearing, nontoxic. Afebrile. Counseled regarding risks and benefits of antibiotic usage. Tolerating p.o. without difficulty here. Patient counseled regarding signs and symptoms for which I believe and urgent re-evaluation would be necessary. Patient with good understanding of and agreement to plan and is comfortable going home at this time This document was made in part using voice recognition software. While efforts are made to proofread this document, sound alike and grammatical errors may occur. Departure - Departure Disposition: 01 Home, Self Care Clinical Impression: Pharyngitis Qualifiers: Pharyngitis/tonsillitis etiology: unspecified etiology Qualified Code(s): J02.9 - Acute pharyngitis, unspecified Condition: Good Instructions: ED Strep Pharyngitis Poss Follow-Up: Jolene Alvarez MD [Primary Care Provider] - As Needed Prescriptions: Cephalexin [Keflex] 500 mg PO Q6H #40 capsule Comments: Take all antibiotics until gone. Return if you worsen. Follow-up with your doctor for further care.
[2018-08-30 22:39] VITALS: BP 109/71
== END 2018-08-30 22:38 | disposition home or self-care (01) ==
LOC: ED 21:08
DX: J02.9 Acute pharyngitis, unspecified (principal)
CPT/HCPCS: 87070; 87430; 99283; A9270

== ENCOUNTER 2018-10-28 19:11 | Outpatient (CLI) | payer MEDICAID ==
--- NOTE | 2018-10-29 12:17 | Ultrasound Report ---
Reason: TEST POSITIVE Procedure Date: 10/28/2018 Accession Number: [id number] / [id number] Procedure: US - OB First Trimester CPT Code: FULL RESULT: EXAM: FIRST TRIMESTER OBSTETRIC ULTRASOUND (Less than 11 weeks) EXAM DATE: 10/28/2018 07:20 PM. CLINICAL HISTORY: test positive. LMP: 09/03/2018. COMPARISONS: OB FIRST TRIMESTER 11/01/2016 8:22 PM. TECHNIQUE: Transabdominal and transvaginal ultrasound examination with static image documentation. CLINICAL DATES: EGA 7 weeks 6 days with DEL 06/10/2019 based on LMP. ASSESSMENT: Gestational Sac: Single intrauterine. Mean gestational sac diameter: 26 mm = 7 weeks 4 days. Embryo: CRL (crown-rump length) 10 mm = 7 weeks 0 days. Cardiac activity: 142 beats per minute. Yolk sac: 5 mm. Amniotic fluid: Not accurately assessed at this gestational age. Early placenta: Not visible at this gestational age. Other: Small perigestational fluid collection in the fundal area, 1.6 x 1.2 cm. MATERNAL STRUCTURES: Uterus: Retroverted. Unremarkable. Cervix: Closed. Right Ovary/Adnexa: The ovary measures 3.8 x 2.0 x 3.3 cm, volume 13.3 cc. A 2.5 x 2.1 x 2.0 cm corpus luteum is noted. Left Ovary/Adnexa: The ovary measures 2.8 x 1.4 x 1.9 cm, volume 3.8 cc. Unremarkable. Free Fluid: None. Other: None. IMPRESSION: 1. Single viable intrauterine at EGA 7 weeks 0 days with DEL 06/16/2019 based on crown-rump length, which is discordant with clinical dates. 2. Assigned dating is DEL 06/16/2019 based on current ultrasound. RADIA
== END 2018-10-28 19:12 | disposition home or self-care (01) ==
LOC: DI 19:11
PROVIDERS: ATTEND Nurse Practitioner Obstetrics & Gynecology
DX: Z32.01 Encounter for pregnancy test, result positive (principal)
CPT/HCPCS: 76801; 76817

== ENCOUNTER 2018-10-31 08:00 | Outpatient (CLI) | payer MEDICAID ==
[2018-10-31 19:08] LABS: CANDIDA GROUP DNA POSITIVE (NEGATIVE); CANDIDA KRUSEI DNA NEGATIVE (NEGATIVE); TRICHOMONAS VAGINALIS DNA NEGATIVE (NEGATIVE)
[2018-10-31 20:26] LABS: TRICHOMONAS VAGINALIS DNA NEGATIVE (NEGATIVE)
== END 2018-10-31 23:59 | disposition home or self-care (01) ==
LOC: LAB.R 08:00
PROVIDERS: ATTEND Nurse Practitioner Obstetrics & Gynecology
DX: N76.0 Acute vaginitis (principal); R30.0 Dysuria
CPT/HCPCS: 87086; 87491; 87591; 87661; 87801

== ENCOUNTER 2018-11-01 08:00 | Outpatient (CLI) | payer MEDICAID | END 2018-11-01 23:59 | disposition home or self-care (01) | LOC: LAB.R 08:00 | PROVIDERS: ATTEND Family Medicine | DX: J02.9 Acute pharyngitis, unspecified (principal) | CPT/HCPCS: 87070 ==

== ENCOUNTER 2018-11-12 10:12 | Outpatient (CLI) | payer MEDICAID ==
[2018-11-12 10:53] LABS: BASOPHILS % (AUTO) 0.4 %; EOSINOPHILS % (AUTO) 0.5 %; HGB - HEMOGLOBIN 12.5 g/dL (12.0-16.0); LYMPHOCYTES # (AUTO) 1.7 10^3/uL (1.5-3.5); LYMPHOCYTES % (AUTO) 22.8 %; MEAN CORPUSCULAR HEMOGLOBIN 30.4 pg (27.0-31.0); MEAN CORPUSCULAR HGB CONC 32.6 g/dL (32.0-36.0); MEAN CORPUSCULAR VOLUME 93.2 fL (81.0-99.0); MEAN PLATELET VOLUME 10.4 fL (7.9-10.8); MONOCYTES # (AUTO) 0.6 10^3/uL (0.0-1.0); MONOCYTES % (AUTO) 7.3 %; NEUTROPHILS # (AUTO) 5.1 10^3/uL (1.5-6.6); NEUTROPHILS % (AUTO) 68.7 %; PLT - PLATELET COUNT 173 10^3/uL (130-450); RED BLOOD COUNT 4.11 10^6/uL (4.20-5.40); RED CELL DISTRIBUTION WIDTH 12.9 % (12.0-15.0); WHITE BLOOD COUNT 7.5 x10^3/uL (4.8-10.8)
[2018-11-13 11:37] LABS: HEPATITIS B SURFACE ANTIGEN NON-REACTIVE (NON-REACTIVE)
[2018-11-13 13:16] LABS: HIV AG/AB 4TH GEN NON-REACTIVE (NON-REACTIVE)
[2018-11-13 13:43] LABS: HEPATITIS C ANTIBODY NON-REACTIVE (NON-REACTIVE)
== END 2018-11-12 10:13 | disposition home or self-care (01) ==
LOC: LAB 10:12
PROVIDERS: ATTEND Obstetrics & Gynecology
DX: Z34.90 Encounter for supervision of normal pregnancy, unspecified, unspecified trimester (principal)
CPT/HCPCS: 36415; 80306; 81001; 81599; 85025; 86592; 86762; 86803; 86850; 86900; 86901; 87340; 87389

== ENCOUNTER 2018-11-12 13:16 | Outpatient (CLI) | payer MEDICAID ==
[2018-11-12 14:52] LABS: MUDS CUTOFF CONCENTRATIONS CUTOFF CONC BELOW:
[2018-11-12 15:05] LABS: BILIRUBIN,URINE NEGATIVE (NEGATIVE); GLUCOSE, URINE (UA) NEGATIVE (NEGATIVE); KETONES,URINE (UA) NEGATIVE (NEGATIVE); LEUKOCYTE ESTERASE, URINE NEGATIVE (NEGATIVE); NITRITE,URINE NEGATIVE (NEGATIVE); OCCULT BLOOD,URINE NEGATIVE (NEGATIVE); PROTEIN,URINE NEGATIVE (NEGATIVE); UROBILINOGEN,URINE 0.2 (NORMAL) E.U./dL (NORMAL)
[2018-11-12 15:07] LABS: CLARITY,URINE HAZY (CLEAR)
[2018-11-12 15:20] LABS: AMPHETAMINE SCREEN,URINE NEGATIVE (NEGATIVE); BENZODIAZEPINES SCREEN, URINE NEGATIVE (NEGATIVE); COCAINE SCREEN URINE NEGATIVE (NEGATIVE); METHADONE SCREEN, URINE NEGATIVE (NEGATIVE); METHAMPHETAMINES SCREEN, URINE NEGATIVE (NEGATIVE); OPIATE SCREEN, URINE NEGATIVE (NEGATIVE); OXYCODONE SCREEN, URINE NEGATIVE (NEGATIVE); TRICYCLIC ANTIDEPRESSANT,URINE NEGATIVE (NEGATIVE)
[2018-11-12 15:21] LABS: BACTERIA,URINE Few /HPF (None Seen); PROPOXYPHENE SCREEN, URINE NEGATIVE (NEGATIVE); RBC,URINE 0-5 /HPF (0-5); SQUAMOUS EPITHELIAL CELL,UR MANY Squamous (<= Few)
== END 2018-11-12 23:59 | disposition home or self-care (01) ==
LOC: LAB.R 13:16
PROVIDERS: ATTEND Obstetrics & Gynecology
DX: Z34.90 Encounter for supervision of normal pregnancy, unspecified, unspecified trimester (principal)
CPT/HCPCS: 80306; 81001; 87086

== ENCOUNTER 2018-12-10 09:30 | Outpatient (CLI) | payer MEDICAID ==
[2018-12-10 14:13] LABS: MUDS CUTOFF CONCENTRATIONS CUTOFF CONC BELOW:
[2018-12-10 14:42] LABS: AMPHETAMINE SCREEN,URINE NEGATIVE (NEGATIVE); BENZODIAZEPINES SCREEN, URINE NEGATIVE (NEGATIVE); COCAINE SCREEN URINE NEGATIVE (NEGATIVE); METHADONE SCREEN, URINE NEGATIVE (NEGATIVE); METHAMPHETAMINES SCREEN, URINE NEGATIVE (NEGATIVE); OPIATE SCREEN, URINE NEGATIVE (NEGATIVE); OXYCODONE SCREEN, URINE NEGATIVE (NEGATIVE); PROPOXYPHENE SCREEN, URINE NEGATIVE (NEGATIVE); TRICYCLIC ANTIDEPRESSANT,URINE NEGATIVE (NEGATIVE)
== END 2018-12-10 23:59 | disposition home or self-care (01) ==
LOC: LAB.R 09:30
PROVIDERS: ATTEND Obstetrics & Gynecology
DX: Z34.90 Encounter for supervision of normal pregnancy, unspecified, unspecified trimester (principal)
CPT/HCPCS: 80306

== ENCOUNTER 2018-12-18 10:48 | Outpatient (CLI) | payer MEDICAID | END 2018-12-18 10:49 | disposition home or self-care (01) | LOC: LAB 10:48 | PROVIDERS: ATTEND Obstetrics & Gynecology | DX: Z36.8A Encounter for antenatal screening for other genetic defects (principal) | CPT/HCPCS: 36415; 81511; 81599 ==

== ENCOUNTER 2018-12-26 08:00 | Outpatient (CLI) | payer MEDICAID ==
[2018-12-26 23:00] LABS: CANDIDA GROUP DNA POSITIVE (NEGATIVE); CANDIDA KRUSEI DNA NEGATIVE (NEGATIVE); TRICHOMONAS VAGINALIS DNA NEGATIVE (NEGATIVE)
== END 2018-12-26 23:59 | disposition home or self-care (01) ==
LOC: LAB.R 08:00
PROVIDERS: ATTEND Obstetrics & Gynecology
DX: N89.8 Other specified noninflammatory disorders of vagina (principal)
CPT/HCPCS: 87661; 87801

== ENCOUNTER 2019-01-07 15:46 | Outpatient (CLI) | payer MEDICAID | END 2019-01-07 15:47 | disposition home or self-care (01) | LOC: LAB 15:46 | PROVIDERS: ATTEND Obstetrics & Gynecology | DX: O34.211 Maternal care for low transverse scar from previous cesarean delivery (principal) | CPT/HCPCS: 36415; 81599 ==

== ENCOUNTER 2019-01-13 07:00 | Outpatient (CLI) | payer MEDICAID ==
[2019-01-13 20:49] LABS: CANDIDA KRUSEI DNA NEGATIVE (NEGATIVE)
[2019-01-13 20:50] LABS: CANDIDA GROUP DNA NEGATIVE (NEGATIVE); TRICHOMONAS VAGINALIS DNA NEGATIVE (NEGATIVE)
== END 2019-01-13 23:59 | disposition home or self-care (01) ==
LOC: LAB.R 07:00
PROVIDERS: ATTEND Obstetrics & Gynecology
DX: O34.211 Maternal care for low transverse scar from previous cesarean delivery (principal); N76.0 Acute vaginitis
CPT/HCPCS: 87086; 87661; 87801

== ENCOUNTER 2019-01-13 14:06 | Emergency (ER) | payer MEDICAID ==
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
[2019-01-13 17:23] VITALS: BP 127/64
== END 2019-01-13 18:01 | disposition home or self-care (01) ==
LOC: ED 14:06
DX: O99.89 Other specified diseases and conditions complicating pregnancy, childbirth and the puerperium (principal); T75.4XXA Electrocution, initial encounter; W86.0XXA Exposure to domestic wiring and appliances, initial encounter; Y93.89 Activity, other specified; Y92.009 Unspecified place in unspecified non-institutional (private) residence as the place of occurrence of the external cause; Z3A.19 19 weeks gestation of pregnancy; O34.211 Maternal care for low transverse scar from previous cesarean delivery; N76.0 Acute vaginitis
CPT/HCPCS: 87086; 87661; 87801; 99281; 99282

== ENCOUNTER 2019-01-23 06:44 | Outpatient (CLI) | payer MEDICAID ==
--- NOTE | 2019-01-23 09:01 | Ultrasound Report ---
Reason: MAT CARE FOR LOW TRANSVERSE SCAR Procedure Date: 01/23/2019 Accession Number: [id number] / [id number] Procedure: US - OB Detailed Eval CPT Code: Addended Final Report FULL RESULT: EXAM: COMPLETE OBSTETRICAL ULTRASOUND EXAM DATE: 01/23/2019 08:25 AM. CLINICAL HISTORY: anatomic survey. COMPARISON: OB DETAILED EVAL 02/05/2017 12:50 PM. TECHNIQUE: Real-time sonographic evaluation of the fetus performed by the machinist 2nd shift. Multiple sales representative adding machines static images were saved for review. DATING: Established EGA 20 weeks 2 days with DEL 06/10/2019 based on LMP and provider stated. EGA 19 weeks 3 days with DEL 06/16/2019 based on 10/28/2018 ultrasound. EGA 19 weeks 4 days with DEL 06/15/2019 based on the current ultrasound. GENERAL EVALUATION S[place] . Cardiac activity: 144 bpm. movement: Visualized. Presentation: Breech Placenta: Posterior position. No evidence for previa. Umbilical cord: 3 vessel cord. Central placental cord origin. Amniotic fluid: Subjectively normal. MVP 4 cm. BIOMETRY Bi-Parietal Diameter (BPD): 4.6 cm, 9 9 weeks 6 days Head Circumference (HC): 17.3 cm, 19 weeks 6 days Abdominal Circumference (AC): 14.4 cm, 19 weeks 5 days Femur Length (FL): 2.9 cm, 19 weeks 0 days Estimated Weight: 293 g, 10 percentile for 20 weeks 2 days. ANATOMY The intracranial structures, profile, face/nose/lips, spine, 4 chamber heart and outflow tracts, stomach, abdominal wall and cord insertion, diaphragm, kidneys, bladder, and extremities were visualized and demonstrate no abnormality. Open hands are not visualized MATERNAL STRUCTURES Uterus: Unremarkable. Cervix: Long and closed. Transabdominal length 4.7 cm. Right ovary/adnexa: Unremarkable. Left ovary/adnexa: Unremarkable. Free fluid: None. IMPRESSION: 1. Saha live intrauterine with gestational age 20 weeks 2 days based on LMP and physician assigned dating. 2. Estimated weight is within expected limits for assigned dating. 3. Open hands are not visualized otherwise the rest of the anatomic survey is unremarkable RADIA ADDENDUM: 01/30/19 07:02 BIOMETRY Bi-Parietal Diameter (BPD): 4.6 cm, 19 weeks 6 days
== END 2019-01-23 06:45 | disposition home or self-care (01) ==
LOC: DI 06:44
PROVIDERS: ATTEND Obstetrics & Gynecology
DX: O34.211 Maternal care for low transverse scar from previous cesarean delivery (principal); Z3A.20 20 weeks gestation of pregnancy; Z36.89 Encounter for other specified antenatal screening
CPT/HCPCS: 76811

== ENCOUNTER 2019-02-24 19:15 | Outpatient (CLI) | payer MEDICAID ==
--- NOTE | 2019-02-25 14:25 | Ultrasound Report ---
Reason: MATERNAL CARE FOR LOW TRANSVERSE SCAR Procedure Date: 02/24/2019 Accession Number: [id number] / [id number] Procedure: US - OB F/U or Repeat CPT Code: Final Report FULL RESULT: EXAM: FOLLOW-UP OBSTETRICAL ULTRASOUND EXAM DATE: 02/24/2019 08:12 PM. CLINICAL HISTORY: Maternal care for low transverse scar. COMPARISON: OB F/U OR REPEAT 03/22/2017 2:11 PM OB DETAILED EVAL 01/23/2019 6:49 AM. TECHNIQUE: Real-time sonographic evaluation of the fetus performed by the networking technology instructor. Multiple outreach representative static images were saved for review. DATING: Established EGA 24 weeks 6 days with DEL 06/10/2019 based on LMP. EGA 24 weeks 0 days with DEL 06/16/2019 based on initial ultrasound. EGA 25 weeks 0 days with DEL 06/09/2019 based on the current ultrasound. GENERAL EVALUATION Saha . Cardiac activity: 152 bpm. movement: Visualized. Presentation: Cephalic. Placenta: Posterior position. Amniotic fluid: Normal. PRATEEK 19 cm. MVP 6 cm. BIOMETRY Bi-Parietal Diameter (BPD): 6.3 cm, 25 weeks 4 days Head Circumference (HC): 23.5 cm, 25 weeks 4 days Abdominal Circumference (AC): 20 cm, 24 weeks 4 days Femur Length (FL): 4.3 cm, 24 weeks 0 days Estimated Weight: 704 g, 26th percentile for 24 weeks 6 days. MATERNAL STRUCTURES Cervix is long and closed, 6.5 cm. IMPRESSION: 1. Saha live intrauterine with gestational age 24 weeks 6 days based on working due date. 2. Estimated weight is within expected limits for assigned dating. 3. Improved interval growth compared to date of prior biometry. RADIA
== END 2019-02-24 19:16 | disposition home or self-care (01) ==
LOC: DI 19:15
PROVIDERS: ATTEND Obstetrics & Gynecology
DX: O34.211 Maternal care for low transverse scar from previous cesarean delivery (principal); Z3A.24 24 weeks gestation of pregnancy
CPT/HCPCS: 76816

== ENCOUNTER 2019-03-10 11:39 | Outpatient (CLI) | payer MEDICAID ==
[2019-03-10 18:46] LABS: HGB - HEMOGLOBIN 11.6 g/dL (12.0-16.0); MEAN CORPUSCULAR HGB CONC 32.2 g/dL (32.0-36.0); MEAN CORPUSCULAR VOLUME 99.2 fL (81.0-99.0); MEAN PLATELET VOLUME 11.2 fL (7.9-10.8); RED BLOOD COUNT 3.63 10^6/uL (4.20-5.40); RED CELL DISTRIBUTION WIDTH 13.1 % (12.0-15.0); WHITE BLOOD COUNT 7.7 x10^3/uL (4.8-10.8)
== END 2019-03-10 23:59 | disposition home or self-care (01) ==
LOC: LAB.N 11:39
PROVIDERS: ATTEND Obstetrics & Gynecology
DX: R30.0 Dysuria (principal)
CPT/HCPCS: 36415; 82950; 85027; 86850

== ENCOUNTER 2019-05-08 15:27 | Outpatient (CLI) | payer MEDICAID ==
[2019-05-09 19:18] LABS: TRICHOMONAS VAGINALIS DNA NEGATIVE (NEGATIVE)
== END 2019-05-08 23:59 | disposition home or self-care (01) ==
LOC: LAB.R 15:27
PROVIDERS: ATTEND Obstetrics & Gynecology
DX: Z36.85 Encounter for antenatal screening for Streptococcus B (principal); Z11.3 Encounter for screening for infections with a predominantly sexual mode of transmission
CPT/HCPCS: 87491; 87591; 87661; 87797

== ENCOUNTER 2019-05-30 09:57 | Outpatient (CLI) | payer MEDICAID ==
[2019-05-30 10:07] VITALS: BP 115/71
[2019-05-30] MEDS ORDERED: ONDANSETRON 4 MG/2 ML VIAL IVP ONE (11:00)
[2019-05-30] MEDS ORDERED: LACTATED RINGERS 1,000 ML IV ONE (11:02)
[2019-05-30 11:34] LABS: BASOPHILS % (AUTO) 0.5 %; EOSINOPHILS # (AUTO) 0.1 10^3/uL (0.0-0.7); EOSINOPHILS % (AUTO) 0.6 %; HGB - HEMOGLOBIN 12.2 g/dL (12.0-16.0); LYMPHOCYTES # (AUTO) 2.1 10^3/uL (1.5-3.5); MEAN CORPUSCULAR HGB CONC 33.4 g/dL (32.0-36.0); MEAN CORPUSCULAR VOLUME 92.9 fL (81.0-99.0); MONOCYTES # (AUTO) 0.8 10^3/uL (0.0-1.0); MONOCYTES % (AUTO) 9.8 %; NEUTROPHILS # (AUTO) 5.4 10^3/uL (1.5-6.6); NEUTROPHILS % (AUTO) 63.7 %; PLT - PLATELET COUNT 156 10^3/uL (130-450); RED BLOOD COUNT 3.93 10^6/uL (4.20-5.40); RED CELL DISTRIBUTION WIDTH 13.3 % (12.0-15.0); WHITE BLOOD COUNT 8.5 x10^3/uL (4.8-10.8)
[2019-05-30 12:09] LABS: ALBUMIN 3.1 g/dL (3.2-5.5); ALBUMIN/GLOBULIN RATIO 0.8 (1.0-2.2); BILIRUBIN,TOTAL 0.9 mg/dL (0.2-1.0); CALCIUM 8.7 mg/dL (8.5-10.3); CREATININE 0.6 mg/dL (0.4-1.0)
[2019-05-30 12:18] LABS: BILIRUBIN,URINE NEGATIVE (NEGATIVE); GLUCOSE, URINE (UA) NEGATIVE (NEGATIVE); KETONES,URINE (UA) NEGATIVE (NEGATIVE); LEUKOCYTE ESTERASE, URINE SMALL (NEGATIVE); NITRITE,URINE NEGATIVE (NEGATIVE); OCCULT BLOOD,URINE NEGATIVE (NEGATIVE); PH,URINE 6.5 PH (5.0-7.5); PROTEIN,URINE NEGATIVE (NEGATIVE); UROBILINOGEN,URINE 0.2 (NORMAL) E.U./dL (NORMAL)
--- NOTE | 2019-05-30 12:19 | HISTORY & PHYSICAL EXAMINATION ---
Admit History - Visit Reason Visit Reason: Other (24yo at 38 2/7 weeks presents with c/o nausea, one episode of vomiting this morning, low back and groin pain. Has had this pain intermittently for some time, but states it has been worse over the past 2 days. No contractions, no bleeding or fluid leak, normal activity.) - : 2 Parity: 1 Care: positive: [facility] Risk/History: positive: Previous Complications This : positive: None Smoking Status: Never smoker - Mother's Labs Mother's Blood Type: positive: A Mother's RH: positive: Positive GBS: positive: Group B Step Negative Rubella Status: positive: Immune (HIV/HepB neg GC/chlam neg Nml glucola) Meds/Allgy - Allergies Allergies/Adverse Reactions: Allergies Allergy/AdvReac Type Severity Reaction Status Date / Time No Known Drug Allergies Allergy Verified 06/09/18 09:07 Review of Systems - Other Findings Other Findings: ROS as noted otherwise negative Physical - Abdominal Exam Vital Signs: Temp Pulse Resp BP Pulse Ox 98.1 F 96 17 115/71 100 05/30/19 10:06 05/30/19 10:06 05/30/19 10:06 05/30/19 10:06 05/30/19 10:06 Contraction Frequency (min/apart): None Uterine Resting Tone: positive: Soft - Monitoring Strip Review: positive: Category I - Vaginal Exam Membranes: positive: Membranes intact - Speculum Exam Speculum Exam Performed: positive: No (Mild tendernes to palpation lower back R>L. No CVAT Mildly tender in groin bilaterally No guarding) Plan for Labor - Plan For Labor Plan for Labor: 24yo at 38 2/7 weeks with pain c/w round ligament and low back musculoskeletal strain. Mild dehydration, no evidence of HELLP. Labs normal BP normal. Improved with IV hydration and zofran. Scheduled for rpt LTCS next week.
[2019-05-30 12:20] LABS: CLARITY,URINE SL. CLOUDY (CLEAR)
[2019-05-30 12:30] LABS: BACTERIA,URINE Few /HPF (None Seen); MUCUS,URINE Moderate Strands; RBC,URINE 0-5 /HPF (0-5); SQUAMOUS EPITHELIAL CELL,UR MANY Squamous (<= Few)
== END 2019-05-30 13:15 | disposition home or self-care (01) ==
LOC: WFO 09:57 → FBP 10:00 → WFO 13:15
PROVIDERS: ATTEND Obstetrics & Gynecology
DX: O21.2 Late vomiting of pregnancy (principal); O99.283 Endocrine, nutritional and metabolic diseases complicating pregnancy, third trimester; E86.0 Dehydration; O99.89 Other specified diseases and conditions complicating pregnancy, childbirth and the puerperium; R10.30 Lower abdominal pain, unspecified; O9A.213 Injury, poisoning and certain other consequences of external causes complicating pregnancy, third trimester; S39.012A Strain of muscle, fascia and tendon of lower back, initial encounter; Z3A.38 38 weeks gestation of pregnancy; X58.XXXA Exposure to other specified factors, initial encounter
CPT/HCPCS: 36415; 80053; 81001; 85025; 96374; 99214; J7120; 87086

== ENCOUNTER 2019-06-04 05:22 | Inpatient (IN) | payer MEDICAID ==
[2019-06-04] MEDS ORDERED: ceFAZolin 2 GM in SODIUM CHLORIDE 0.9% 100ML 100 ML IV ONE (05:31)
[2019-06-04 06:17] LABS: BASOPHILS % (AUTO) 0.4 %; EOSINOPHILS # (AUTO) 0.1 10^3/uL (0.0-0.7); EOSINOPHILS % (AUTO) 1.1 %; LYMPHOCYTES # (AUTO) 2.3 10^3/uL (1.5-3.5); LYMPHOCYTES % (AUTO) 28.1 %; MEAN CORPUSCULAR HEMOGLOBIN 31.1 pg (27.0-31.0); MEAN CORPUSCULAR HGB CONC 33.2 g/dL (32.0-36.0); MEAN CORPUSCULAR VOLUME 93.5 fL (81.0-99.0); MEAN PLATELET VOLUME 11.1 fL (7.9-10.8); MONOCYTES # (AUTO) 0.9 10^3/uL (0.0-1.0); MONOCYTES % (AUTO) 10.9 %; NEUTROPHILS # (AUTO) 4.9 10^3/uL (1.5-6.6); PLT - PLATELET COUNT 169 10^3/uL (130-450); RED BLOOD COUNT 3.86 10^6/uL (4.20-5.40); RED CELL DISTRIBUTION WIDTH 13.5 % (12.0-15.0); WHITE BLOOD COUNT 8.3 x10^3/uL (4.8-10.8)
[2019-06-04] MEDS ORDERED: LACTATED RINGERS 1,000 ML IV ONE ×3 (06:28→09:06)
--- NOTE | 2019-06-04 07:24 | ANESTHESIA ---
Pre-Anesthesia VS, & Labs - Diagnosis previous c/s - Procedure repeat LT C/S Vital Signs: Temp Pulse Resp BP Pulse Ox 36.2 C L 115 H 18 111/70 06/04/19 05:33 06/04/19 05:33 06/04/19 05:33 06/04/19 05:33 Height 5 ft 7 in Weight (kg) 97.25 kg Body Mass Index 29.7 - NPO >8 hours - Is Patient ?: Yes - Lab Results Current Lab Results: Laboratory Tests 06/04/19 06:00: WBC 8.3, RBC 3.86 L, Hgb 12.0, Hct 36.1 L, MCV 93.5, MCH 31.1 H, MCHC 33.2, RDW 13.5, Plt Count 169, MPV 11.1 H, Neut # (Auto) 4.9, Lymph # (Auto) 2.3, [place] # (Auto) 0.9, Eos # (Auto) 0.1, Baso # (Auto) 0.0, Absolute Nucleated RBC 0.00, Nucleated RBC % 0.0 Lab results reviewed: Yes Fish Bones: 06/04/19 06:00 06/04/19 06:55 Home Medications and Allergies Allergies/Adverse Reactions: Allergies Allergy/AdvReac Type Severity Reaction Status Date / Time No Known Drug Allergies Allergy Verified 06/09/18 09:07 Anes History & Medical History - Anesthetic History Anesthesia Complications: reports: No previous complications Family history of Anesthesia Complications: Denies Family history of Malignant Hyperthermia: Denies - Medical History Cardiovascular: reports: None Pulmonary: reports: None Gastrointestinal: reports: GERD Urinary: reports: None Neuro: reports: None Musculoskeletal: reports: None Endocrine/Autoimmune: reports: None Blood Disorders: reports: None Skin: reports: None Smoking Status: Never smoker - Surgical History Gynecologic: section Exam General: Alert, Oriented x3, Cooperative Dental: WNL Mouth Opening: Greater than 4 Fingerbreadths Neck Mobility: Normal Mallampati classification: II Thyromental Distance: greater than 6 cm Respiratory: Lungs clear, Normal breath sounds, No respiratory distress Cardiovascular: Regular rate Neurological: Normal speech Mental/Cognitive Status: Alert/Oriented X3, Normal for patient Cognitive Status: Within normal limits Plan Anesthesia Type: Spinal Consent for Procedure(s) Verified and Reviewed: Yes Code Status: Attempt Resuscitation ASA classification: 2-Mild systemic disease Is this case an emergency?: No
[2019-06-04] MEDS ORDERED: SODIUM CHLORIDE 0.9% 500 ML IV ONE (09:06)
[2019-06-04] MEDS ORDERED: SODIUM CHLORIDE FLUSH 0.9% 10 ML SYRINGE IVP PRN (09:41)
[2019-06-04] MEDS ORDERED: OXYTOCIN/SODIUM CHLORIDE 500 ML IV PRN (09:41)
[2019-06-04] MEDS ORDERED: ONDANSETRON 4 MG/2 ML VIAL IVP PRN (09:41)
[2019-06-04] MEDS ORDERED: diphenhydrAMINE 25 MG CAPSULE PO PRN (09:41)
[2019-06-04] MEDS ORDERED: LACTATED RINGERS 1,000 ML IV SCH (10:00)
--- NOTE | 2019-06-04 10:04 | OPERATIVE REPORT ---
DATE OF SERVICE: 06/04/2019 Physician: Cristo Mora MD PREOPERATIVE DIAGNOSIS: Previous section, 39 weeks. POSTOPERATIVE DIAGNOSIS: Previous section, 39 weeks. PROCEDURE PERFORMED: Repeat low transverse section. SURGEON: Cristo Mora MD WEB PAGE DESIGNER: Susan Porter MD ANESTHESIA PROVIDER: Nathalie Leon CRNA. ANESTHETIC: Spinal. ESTIMATED BLOOD LOSS: 600 mL IV FLUIDS: 1400 mL URINE OUTPUT: 300 mL FINDINGS: Upon entering the abdominal cavity, there was a large with vertex presentation, which appeared to be left occiput transverse. There was clear amniotic fluid. was vigorous at time of delivery. Normal tubes and ovaries. PROCEDURE: Following adequate spinal anesthesia, patient was placed in supine position with a roll under right hip. heart tones were auscultated at this time, following which a Thompson catheter was placed under sterile conditions. She was then prepped and draped in the usual fashion. A timeout was performed. At this point, a Pfannenstiel incision was carried out, excising the old scar. This was carried down to the fascia. The fascia was incised transversely then the fascia was dissected free from the rectus abdominis. The previously reapproximated rectus was noted to be thin. This was then split and carefully carried down to the peritoneum cavity, which was opened and the incision was carried superiorly and inferiorly. Care was taken to avoid any injury to bowel or bladder. At this point, a bladder flap was developed using both blunt and sharp dissection. A low transverse uterine incision was accomplished using a #10 blade, bandage scissors and finger spread technique. The head of the infant was lifted out of the pelvis and there was some difficulty delivering the head and the shoulders. However, this was accomplished. At this point, the cord was allowed to pulsate for roughly 30 seconds, then clamped and then divided. Infant was handed to the team that was standing by. At this point, cord blood samples were obtained. The placenta was manually delivered. The uterus was exteriorized, wrapped in a moist lap and cleansed the internal portion with dry lap. The incision was then closed utilizing a running locking suture of 0 Vicryl with an imbricating layer of 0 Vicryl. This was inspected for hemostasis and this was noted to be secure. The uterus was then tipped forward and then the cul-de-sac was cleansed of any clot and the estimated blood was accomplished at this time. The cul-de-sac was then irrigated with sterile saline. Uterus delivered back in abdominal cavity. Gutters were also irrigated with sterile saline. The wound was reinspected. No bleeding was noted, so the peritoneum was closed utilizing 2-0 Vicryl, and then the fascia was closed utilizing looped PDS. The subcutaneous tissue was noted to be free of any bleeding, so it was closed utilizing 2-0 Vicryl. The incision itself was closed using 4-0 Monocryl. Wound VAC was then placed, and there was evidence of good vacuum. Patient tolerated the procedure well and was taken to recovery in stable condition. Sponge and needle counts were correct. TD: 06/04/2019 09:41 MTDD
[2019-06-04] MEDS: ACETAMINOPHEN 500 MG TABLET PO SCH ×2 (11:40→20:18)
[2019-06-04] MEDS: oxyCODONE 5 MG TABLET PO PRN ×2 (11:40→17:23)
--- NOTE | 2019-06-04 11:47 | OPERATIVE REPORT ---
Operative Report - General Admit Date: 06/04/19 Procedure Date: 06/04/19 Planned Procedure: RLTC/S Pre-Op Diagnosis: 39 weeks IUP, Prior C/S Procedure Performed: RLTC/S Post Op Diagnosis: Same - Procedure Note Primary Surgeon: Cristo Mora MD Secondary Surgeon: Lisa Porter MD Anesthesia Provider: Tucker cruz CRNA Anesthesia Technique: Spinal IV Fluids (mL): 1,400 Estimated Blood Loss (mL): 600 Urine Output (mL): 300
[2019-06-04] MEDS: KETOROLAC 30 MG/ML VIAL IVP SCH ×2 (15:03→21:04)
[2019-06-04] MEDS ORDERED: SODIUM CHLORIDE FLUSH 0.9% 10 ML SYRINGE IVP SCH (17:00)
[2019-06-04] MEDS: SIMETHICONE CHEW 80 MG TABLET PO SCH (17:23)
[2019-06-04] MEDS: DOCUSATE SODIUM 100 MG CAPSULE PO SCH (21:04)
[2019-06-05] MEDS: oxyCODONE 5 MG TABLET PO PRN ×4 (01:10→17:16)
[2019-06-05] MEDS: KETOROLAC 30 MG/ML VIAL IVP SCH ×2 (03:16→15:19)
[2019-06-05] MEDS: ACETAMINOPHEN 500 MG TABLET PO SCH ×2 (04:08→13:13)
[2019-06-05] MEDS: DOCUSATE SODIUM 100 MG CAPSULE PO SCH (09:26)
[2019-06-05] MEDS: IBUPROFEN 800 MG TABLET PO SCH ×2 (09:26→15:35)
[2019-06-05] MEDS: SIMETHICONE CHEW 80 MG TABLET PO SCH ×3 (09:26→17:16)
--- NOTE | 2019-06-05 09:29 | PROVIDER PROGRESS NOTE ---
Subjective - General Admit Date: 06/04/19 Procedure Date: 06/04/19 Post Op Days: 1 Procedure Performed: RLTC/S - Review of Systems Wound/Incisions: positive: Dressing dry and intact (wound vac functioning well) General: positive: No symptoms (Pain 2/10) Pulmonary: positive: No symptoms Cardiovascular: positive: No symptoms Gastrointestinal: positive: No symptoms, Flatus. negative: Nausea Skin: positive: Puritis. negative: Rash Objective - Patient Data Reviewed Vital Signs: Yes Vital Signs: Vital Signs x48h Temp Pulse Resp BP Pulse Ox 06/05/19 09:07 36.8 C 82 17 119/57 L 99 06/05/19 04:34 36.6 C 70 18 110/65 98 Weight: Weight 06/03/19 06/04/19 06/05/19 23:59 23:59 23:59 Weight (kg) 97.25 kg Intake & Output: Intake and Output Totals x24h 06/03/19 06/04/19 06/05/19 23:59 23:59 23:59 Intake Total 3400 800 Output Total 365 3700 Balance 3035 -2900 - Lab Results Lab Results: 06/04/19 06:00 06/04/19 06:55 Other Lab Results: Lab Results x24hrs 06/04/19 Range/Units 06:28 Blood Type A POSITIVE Antibody Screen NEGATIVE - Current Medications Current Medications: Current Medications Generic Name Dose Route Start Last Admin Trade Name Freq PRN Reason Stop Dose Admin Acetaminophen 1,000 mg 06/04/19 10:00 06/05/19 04:08 Tylenol PO 1,000 mg Q8H PRABHJOT Administration Docusate Sodium 100 mg 06/04/19 21:00 06/05/19 09:26 Colace 100mg Capsule PO 100 mg BID PRABHJOT Administration Lactated Ringer's 1,000 mls @ 100 mls/hr 06/04/19 10:00 06/05/19 00:07 Lr IV Infused .Q10H PRABHJOT Infusion Oxytocin/Sodium Chloride 500 mls @ 999 mls/hr 06/04/19 09:41 06/04/19 11:40 Pitocin/Sodium Chloride IV 50 milliunit/min PRN PRN 50 mls/hr POST- HEMORR PREVENTION Administration Protocol 999 MILLIUNIT/MIN Ibuprofen 800 mg 06/05/19 09:44 06/05/19 09:26 Motrin PO 800 mg Q6H PRABHJOT Administration Oxycodone HCl 5 mg 06/04/19 09:41 06/05/19 03:17 Roxicodone PO 5 mg Q4HR PRN Administration PAIN Simethicone 80 mg 06/04/19 14:00 06/05/19 09:26 Mylicon PO 80 mg TID PRABHJOT Administration Sodium Chloride 10 ml 06/04/19 09:41 06/04/19 15:04 Normal Saline Flush 0.9% IVP 10 ml PRN PRN Administration NEEDED PER PROVIDER ORDERS - Physical Exam Wound/Incisions: positive: Dressing dry and intact General Appearance: positive: No acute distress, Alert Neck: positive: Nml inspection Respiratory: positive: Chest non-tender, No respiratory distress, Breath sounds nml Cardiovascular: positive: Regular rate & rhythm, No murmur, No gallop Abdomen: positive: Non-tender, Nml bowel sounds, Mass (U-2) Back: negative: CVA tenderness (R), CVA tenderness (L) Skin: positive: Color nml, No rash Extremities: negative: Calf tenderness, Seth's sign/cords Impression/Plan - Problem List Problem List: S/P RLTC/S Excellent progress. Itching will try Claritin Consider DC today.
[2019-06-05] MEDS ORDERED: LORATADINE 10 MG TABLET PO SCH (10:00)
[2019-06-05 15:39] VITALS: BP 104/53
--- NOTE | 2019-06-05 16:53 | Discharge Plan ---
Discharge Plan Problem Reviewed?: Yes Disposition: Home, Self Care Condition: Good Diet: Regular Activity Restrictions: Pelvic rest 6 weeks Shower Restrictions: No Driving Restrictions: Yes (don't drive while taking narcotics) Weight Bearing: Full Weight No Smoking: If you smoke, Please STOP! Call for help. Follow-up with: Kelley Harding PA [Primary Care Provider] -
--- NOTE | 2019-06-05 17:42 | DISCHARGE SUMMARY ---
Physician: Cristo Mora MD DATE OF ADMISSION: 06/04/2019 DATE OF DISCHARGE: 06/05/2019 ADMITTING DIAGNOSES: 1. A 24-year-old G2, P1 female. 2. Previous section. DISCHARGE DIAGNOSES: 1. A 24-year-old G2, P1 female. 2. Previous section. 3. Delivery live infant via . PROCEDURE: Repeat low transverse section. PRESENTING HISTORY: Patient is a 24-year-old female who previously had a section for arrest of descent. She presents today for repeat section. LABORATORIES: On admission showed a hemoglobin of 12.0, hematocrit was 36.1, her white count was 8.3, platelets were 269. HOSPITAL COURSE: The patient admitted, at which time she was taken for repeat , which was performed without incident. Blood loss during surgery was roughly 600 mL. Her course has been unremarkable. She is taking a regular diet. She is passing flatus. She is ambulating well. Usually, we keep our patients 2 days with , but because of the current viral outbreak, it was decided to try and discharged her to home early to minimize her risk. She is being discharged on discharge medications of oxycodone, Motrin and Colace. She is instructed to followup in the clinic in 1 week for removal of her wound VAC. TD: 06/05/2019 17:01 ODILIA
== END 2019-06-05 17:15 | disposition home or self-care (01) | DRG 794 ==
LOC: FBP 05:22
PROVIDERS: ADMIT Obstetrics & Gynecology; ATTEND Obstetrics & Gynecology
PROC: 10D00Z1 Extraction of Products of Conception, Low, Open Approach (ICD-10-PCS; principal; 2019-06-04 07:30)
DX: Z38.01 Single liveborn infant, delivered by cesarean (principal); O34.211 Maternal care for low transverse scar from previous cesarean delivery; O32.2XX0 Maternal care for transverse and oblique lie, not applicable or unspecified; Z37.0 Single live birth; Z3A.39 39 weeks gestation of pregnancy
CPT/HCPCS: 36415; 85025; 86850; 86900; 86901; A9270; J7120; 80053; 80061; 83036; 83721; 83970

== ENCOUNTER 2019-11-07 08:00 | Outpatient (CLI) | payer MEDICAID ==
[2019-11-07 17:57] LABS: BILIRUBIN,URINE NEGATIVE (NEGATIVE); GLUCOSE, URINE (UA) NEGATIVE (NEGATIVE); KETONES,URINE (UA) NEGATIVE (NEGATIVE); LEUKOCYTE ESTERASE, URINE NEGATIVE (NEGATIVE); NITRITE,URINE NEGATIVE (NEGATIVE); OCCULT BLOOD,URINE NEGATIVE (NEGATIVE); PROTEIN,URINE NEGATIVE (NEGATIVE); UROBILINOGEN,URINE 0.2 (NORMAL) E.U./dL (NORMAL)
[2019-11-07 17:59] LABS: CLARITY,URINE CLEAR (CLEAR)
== END 2019-11-07 23:59 | disposition home or self-care (01) ==
LOC: LAB.WCP 08:00
PROVIDERS: ATTEND Advanced Practice Midwife
DX: N39.0 Urinary tract infection, site not specified (principal)
CPT/HCPCS: 81001; 81003; 87086

== ENCOUNTER 2020-01-16 08:09 | Inpatient (IN) | payer MEDICAID ==
--- NOTE | 2020-01-16 08:21 | ED Physician Documentation ---
PD HPI NVD - Stated complaint Stated Complaint: NAUSEA, VOMITING - History obtained from History obtained from: Patient - History of Present Illness Timing - onset: Last night (The patient states she is feeling okay yesterday with little bit of breast tenderness along the left lateral aspect. Overnight she developed feeling of chills and shaking, weakness, nausea and vomiting. She feels weak and lightheaded this morning.) Timing - duration: Hours (5-6) Timing - details: Abrupt onset Associated symptoms: Fever. No: Abdominal pain, Hematemesis, Near syncope / s yncope (but feeling of lightheaded) Contributing factors: No: Sick contact, Bad food (ate telugu food last night along with her ; he is okay.), Travel Improved by: No: Vomiting Worsened by: No: Breathing Similar symptoms before: Has not had sx before Recently seen: Not recently seen Review of Systems Constitutional: reports: Fever, Chills, Myalgias (abruptly today) Nose: denies: Rhinorrhea / runny nose, Congestion Throat: denies: Sore throat Respiratory: denies: Cough GI: reports: Nausea, Vomiting. denies: Abdominal Pain, Diarrhea : denies: Dysuria, Frequency, Discharge Skin: reports: Lesions (left lateral breast with firmness, tenderness and pain for past 1-2 days.). denies: Rash Neurologic: reports: Generalized weakness. 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 : None HEENT: None Psych: None Musculoskeletal: None Derm: None - Past Surgical History Past Surgical History: Yes /LUNCHROOM OPERATOR: section - Present Medications Home Medications: Ambulatory Orders Medication Instructions Recorded Confirmed Pnv No.103/Folic/Om3s/Fish Oil 1 each PO 01/16/20 [ Gummies] - Allergies Allergies/Adverse Reactions: Allergies Allergy/AdvReac Type Severity Reaction Status Date / Time No Known Drug Allergies Allergy Verified 01/16/20 08:30 - Social History Does the pt smoke?: No Smoking Status: Never smoker Does the pt drink ETOH?: No Does the pt have substance abuse?: No - Immunizations Immunizations are current?: Yes - POLST Patient has POLST: No PD ED PE NORMAL - Vitals Vital signs reviewed: Yes (tachycardic and low BP. Elevated temp. ) - General General: Alert and oriented X 3, Well developed/nourished, Other - HEENT HEENT: Ears normal, Pharynx benign - Neck Neck: Supple, no meningeal sign, No adenopathy - Cardiac Cardiac: No murmur. No: RRR (regular but tachycardic) - Respiratory Respiratory: Clear bilaterally - Abdomen Abdomen: Normal bowel sounds, Soft, Non tender, No organomegaly - Female Female : Deferred - Rectal Rectal: Deferred - Back Back: No CVA TTP - Derm Derm: Warm and dry, Other (The lateral aspect of the left breast has redness of the skin and warmth localized along with firmness and tenderness. No skin sores are seen. No discharge at the nipple.). No: Normal color (pale) - Extremities Extremities: Normal ROM s pain, No edema - Neuro Neuro: Alert and oriented X 3, No motor deficit, Normal speech Results - Vitals Vitals: Vital Signs - 24 hr 01/16/20 01/16/20 01/16/20 08:20 09:00 09:42 Temperature 39.6 C H 38.4 C H Heart Rate 122 H 118 H 107 H Respiratory 20 21 16 Rate Blood Pressure 93/66 97/60 107/55 L O2 Saturation 99 99 100 01/16/20 01/16/20 01/16/20 09:58 10:10 10:30 Temperature Heart Rate 115 H 108 H 99 Respiratory 25 H 29 H 13 Rate Blood Pressure 87/64 L 101/53 L 101/42 L O2 Saturation 99 97 98 Oxygen O2 Source Room air - Labs Labs: Laboratory Tests 01/16/20 01/16/20 01/16/20 08:35 08:35 08:54 WBC 10.2 RBC 4.50 Hgb 13.6 Hct 40.9 MCV 90.9 MCH 30.2 MCHC 33.3 RDW 13.0 Plt Count 180 MPV 11.2 H Neut # (Auto) 8.3 H Lymph # (Auto) 1.0 L [place] # (Auto) 0.7 Eos # (Auto) 0.1 Baso # (Auto) 0.0 Absolute Nucleated RBC 0.00 Nucleated RBC % 0.0 Sodium 138 Potassium 3.8 Chloride 100 L Carbon Dioxide 22 Anion Gap 16.0 H BUN 21 H Creatinine 0.8 Estimated GFR (MDRD) 88 L Glucose 145 H Lactic Acid 2.1 Calcium 9.8 Total Bilirubin 1.8 H AST 27 ALT 21 Alkaline Phosphatase 65 Total Protein 7.9 Albumin 4.2 Globulin 3.7 Albumin/Globulin Ratio 1.1 - Rads (name of study) chest xray Radiology: Prelim report reviewed (no infiltrates), See rad report PD MEDICAL DECISION MAKING - ED course Complexity details: reviewed results, re-evaluated patient, considered differential (Patient has clinically mastitis on the left breast. She does seem very ill from it with fever tachycardia and hypotension signifying sepsis. The patient is breast-feeding. We will check labs as well as urine and chest x-ray to ensure no other obvious source.), d/w patient Departure - Departure Disposition: 66 [facility] DC/Xfer Clinical Impression: Acute mastitis of left breast Sepsis Qualifiers: Sepsis type: sepsis due to unspecified organism Sepsis acute organ dysfunction status: without acute organ dysfunction Qualified Code(s): A41.9 - Sepsis, unspecified organism Condition: Stable
[2020-01-16] MEDS ORDERED: SODIUM CHLORIDE 0.9% 2,993.7 ML IV STA (08:30)
[2020-01-16] MEDS ORDERED: ONDANSETRON 4 MG/2 ML VIAL IVP STA (08:31)
[2020-01-16] MEDS ORDERED: cefTRIAXone 1 GM VIAL IVP STA (08:31)
[2020-01-16] MEDS ORDERED: FAMOTIDINE 20 MG/2 ML SYRINGE IVP STA (08:32)
[2020-01-16] MEDS ORDERED: PROCHLORPERAZINE 10 MG/2 ML VIAL IVP STA (08:56)
[2020-01-16 09:00] LABS: BASOPHILS % (AUTO) 0.3 %; EOSINOPHILS # (AUTO) 0.1 10^3/uL (0.0-0.7); EOSINOPHILS % (AUTO) 0.6 %; HGB - HEMOGLOBIN 13.6 g/dL (12.0-16.0); LYMPHOCYTES % (AUTO) 9.8 %; MEAN CORPUSCULAR HEMOGLOBIN 30.2 pg (27.0-31.0); MEAN CORPUSCULAR HGB CONC 33.3 g/dL (32.0-36.0); MEAN CORPUSCULAR VOLUME 90.9 fL (81.0-99.0); MEAN PLATELET VOLUME 11.2 fL (7.9-10.8); MONOCYTES # (AUTO) 0.7 10^3/uL (0.0-1.0); MONOCYTES % (AUTO) 6.7 %; NEUTROPHILS # (AUTO) 8.3 10^3/uL (1.5-6.6); NEUTROPHILS % (AUTO) 82.1 %; PLT - PLATELET COUNT 180 10^3/uL (130-450); WHITE BLOOD COUNT 10.2 x10^3/uL (4.8-10.8)
[2020-01-16 09:19] LABS: ALBUMIN 4.2 g/dL (3.2-5.5); ALBUMIN/GLOBULIN RATIO 1.1 (1.0-2.2); BILIRUBIN,TOTAL 1.8 mg/dL (0.2-1.0); CALCIUM 9.8 mg/dL (8.5-10.3); CREATININE 0.8 mg/dL (0.4-1.0); TOTAL PROTEIN 7.9 g/dL (6.7-8.2)
--- NOTE | 2020-01-16 09:29 | XRAY Report ---
PROCEDURE: Chest 1 View X-Ray INDICATIONS: Cough TECHNIQUE: One view of the chest was acquired. COMPARISON: None FINDINGS: Surgical changes and devices: None. Lungs and pleura: No pleural effusions or pneumothorax. Lungs are clear. Mediastinum: Mediastinal contours appear normal. Heart size is normal. Bones and chest wall: No suspicious bony lesions. Overlying soft tissues appear unremarkable. IMPRESSION: Normal chest radiograph. Reviewed by: Mike Harris MD on 01/16/2020 9:27 AM PDT Approved by: Mike Harris MD on 01/16/2020 9:27 AM PDT Station ID: [id number]
[2020-01-16] MEDS ORDERED: ACETAMINOPHEN 325 MG TABLET PO STA (09:39)
[2020-01-16] MEDS ORDERED: KETOROLAC 30 MG/ML VIAL IVP STA (09:39)
[2020-01-16] MEDS ORDERED: VANCOMYCIN INJ 1.5 GM in SODIUM CHLORIDE 0.9% 500 ML IV STA (10:39)
[2020-01-16] MEDS ORDERED: VANCOMYCIN INJ 2 GM in SODIUM CHLORIDE 0.9% 500 ML IV STA (10:45)
[2020-01-16] MEDS ORDERED: ACETAMINOPHEN 325 MG TABLET PO PRN (11:12)
[2020-01-16] MEDS ORDERED: SODIUM CHLORIDE FLUSH 0.9% 10 ML SYRINGE IVP PRN (11:12)
[2020-01-16] MEDS ORDERED: ONDANSETRON 4 MG/2 ML VIAL IVP PRN (11:12)
[2020-01-16 12:01] LABS: INR 1.3 (0.8-1.2); PT - PROTHROMBIN TIME 14.7 secs (9.9-12.6)
[2020-01-16 12:29] LABS: BILIRUBIN,URINE NEGATIVE (NEGATIVE); GLUCOSE, URINE (UA) NEGATIVE (NEGATIVE); KETONES,URINE (UA) TRACE mg/dL (NEGATIVE); LEUKOCYTE ESTERASE, URINE NEGATIVE (NEGATIVE); NITRITE,URINE NEGATIVE (NEGATIVE); OCCULT BLOOD,URINE NEGATIVE (NEGATIVE); PH,URINE 7.5 PH (5.0-7.5); PROTEIN,URINE NEGATIVE (NEGATIVE); UROBILINOGEN,URINE 0.2 (NORMAL) E.U./dL (NORMAL)
[2020-01-16 12:34] LABS: CLARITY,URINE CLEAR (CLEAR)
[2020-01-16 12:35] LABS: RBC,URINE None Seen /HPF (0-5); SQUAMOUS EPITHELIAL CELL,UR FEW Squamous (<= Few)
[2020-01-16 12:41] LABS: BACTERIA,URINE None Seen /HPF (None Seen)
[2020-01-16] MEDS: D5NS W/20 MEQ KCL 1,000 ML IV SCH (14:05)
[2020-01-16] MEDS: ceFAZolin 2 GM in SODIUM CHLORIDE 0.9% 100ML 100 ML IV SCH ×2 (14:05→21:44)
--- NOTE | 2020-01-16 14:10 | PHARMACY PROGRESS NOTE ---
- Therapy Status Vancomycin regimen day #: 1 Therapy status: Awaiting steady state Basis for treatment: Empirical - ARACELI Risk Risk level for Acute Kidney Injury: Low Acute Kidney Injury risk factors: Wt >100kg or BMI >40 - Monitoring and Recommendation Clinical response to treatment: I&O Previous 24 hours 01/14/20 01/15/20 01/16/20 23:59 23:59 23:59 Intake Total 3493.7 Balance 3493.7 Lab Results 01/16/20 08:35 BUN 21 H Creatinine 0.8 Estimated GFR (MDRD) 88 L Areas for additional monitoring: IV to PO when appropriate, Therapy de- escalation based on culture results Pharmacy recommendation: Discontinue therapy (No risk factors for MRSA; Cefazolin will cover for MSSA)
[2020-01-16] MEDS: SODIUM CHLORIDE FLUSH 0.9% 10 ML SYRINGE IVP SCH (17:38)
--- NOTE | 2020-01-16 17:47 | PHARMACY PROGRESS NOTE ---
- Best Possible Medication History Admit Date and Time: 01/16/20 1058 Processed by: Pharmacy Medication History completed: Yes Patient Interview: Pt interview ONLY source As the person ultimately responsible for medication therapy, providers are able to order a medication from an existing home medication list in [facility] via the "Reconcile Routine" prior to Confirmation of that medication by customer support agent. Such practice is discouraged except when the physician, in their clinical judgment, deems that a medical need exists for a medication without regard to previous use.
--- NOTE | 2020-01-16 17:57 | HISTORY & PHYSICAL EXAMINATION ---
DATE OF SERVICE: 01/16/2020 Physician: Rosaura Lowe MD HISTORY OF PRESENT ILLNESS: This is a 24-year-old white female, who has had 2 pregnancies; her last delivery was 7 months ago. Yesterday, she started to develop achiness mostly in her neck and went to bed early. She woke up at 4:00 a.m. with shaking chills and was nauseated. She went to take a hot bath but then had vomiting right in the bath. She continued to have chills and felt extremely weak and tired and came to the Emergency Room. In the ER, she was found to have a blood pressure of 90 systolic, tachycardic with a heart rate of 122, febrile with a temperature of 39.6 C, lactic acid elevated at 2.1 and white blood count elevated at 10.2. Her source of infection appeared to be the left breast that was tender for the last half a day. The patient is still on demand, which she says is 6-8 times a day. She does not pump usually and she has never had a swollen breast before. She was given over 2 liters of fluid in the ER for septic shock management and also received IV antibiotics started in the Emergency Room. Her blood pressure has improved to 100 after the fluids and heart rate improved to 99. The patient still feels groggy and tired but no longer has nausea after ER management with Zofran. She still has tenderness in the left lateral breast. PAST MEDICAL HISTORY: None. ALLERGIES: NONE. MEDICATIONS: vitamin only. FAMILY HISTORY: No inherited diseases. SOCIAL HISTORY: She does not drink alcohol, no smoking history. No illicit drug use history. She has 2 children, one son who is 2 years old and one son who is 7 months old, and she lives with her significant other/boyfriend. REVIEW OF SYSTEMS: A comprehensive review of systems was performed and the pertinent positives are listed; the rest are negative. PHYSICAL EXAM GENERAL: Mildly obese young female. She appears sleepy but she is in no other distress. VITAL SIGNS: Her blood pressure is 98/51, pulse of 80-99 in sinus rhythm, currently afebrile and room air saturation 98%. HEENT: Reveals dry oral mucosa. NECK: No JVD in a vertical position. CHEST: Clear. HEART: Normal heart sounds. ABDOMEN: Soft, mildly obese, nontender. Normal bowel sounds. BREASTS: The left breast is more enlarged and more taught than the right and there is tenderness to light palpation in the lateral area. There is no redness or streaking. EXTREMITIES: No clubbing, cyanosis or edema. NEUROLOGIC: Grossly intact. LABORATORY DATA: Normal electrolytes. Anion gap elevated at 16. BUN 21, creatinine 0.8. Lactic acid 2.1, bilirubin 1.8. Normal liver tests. No lipase was done. White blood count 10.2, hemoglobin 13.6, platelet count 180. INR elevated at 1.3. Urinalysis unremarkable. CHEST X-RAY: Normal chest radiograph. No EKG was done but telemetry strip shows sinus tachycardia at a rate of 103. IMPRESSION/DIAGNOSES 1. Septic shock, by virtue of hypotension, elevated white blood count, elevated lactic acid level, elevated anion gap but without acidosis (normal bicarb). 2. Acute mastitis of the left breast. 4. Prerenal azotemia. PLAN: Admit the patient to inpatient status on telemetry. Continue with aggressive IV crystalloids for fluid replacement and management of her hypotension. Give antiemetics p.r.n. Advance her diet as tolerated in case she is still nauseated. Blood cultures were done in the ER and IV antibiotics started, continue with IV antibiotics with cephalosporin plus vancomycin and await culture results to tailor the choice of antibiotics. Obtain breat fluid for culture. We will request a consultation from the nurse specialist, a call was put out to the OB wing. Follow her electrolytes and CBC daily. Continue with her vitamin when it is reconciled. Continue with antiemetic medications if needed and Tylenol for pain or fever. DEEP VENOUS THROMBOSIS PROPHYLAXIS: SCD's. CODE STATUS: FULL CODE. ATTESTATION: The patient is expected to be discharged or transferred to another facility within 96 hours: Yes. TD: 01/16/2020 16:00 ODILIA
[2020-01-16] MEDS: FAMOTIDINE 20 MG TABLET PO SCH (21:43)
[2020-01-16] MEDS: HYDROcod/ACETAM 5/325 MG TABLET PO PRN (21:44)
[2020-01-17] MEDS: SODIUM CHLORIDE FLUSH 0.9% 10 ML SYRINGE IVP SCH ×3 (00:51→17:42)
[2020-01-17] MEDS: D5NS W/20 MEQ KCL 1,000 ML IV SCH ×2 (00:55→15:57)
[2020-01-17] MEDS: HYDROcod/ACETAM 5/325 MG TABLET PO PRN ×2 (02:54→07:04)
[2020-01-17 06:06] LABS: BASOPHILS % (AUTO) 0.2 %; EOSINOPHILS # (AUTO) 0.5 10^3/uL (0.0-0.7); EOSINOPHILS % (AUTO) 3.9 %; HGB - HEMOGLOBIN 10.8 g/dL (12.0-16.0); LYMPHOCYTES # (AUTO) 1.8 10^3/uL (1.5-3.5); LYMPHOCYTES % (AUTO) 14.7 %; MEAN CORPUSCULAR HEMOGLOBIN 30.4 pg (27.0-31.0); MEAN CORPUSCULAR HGB CONC 31.8 g/dL (32.0-36.0); MEAN CORPUSCULAR VOLUME 95.8 fL (81.0-99.0); MONOCYTES # (AUTO) 0.8 10^3/uL (0.0-1.0); MONOCYTES % (AUTO) 6.6 %; NEUTROPHILS # (AUTO) 9.1 10^3/uL (1.5-6.6); PLT - PLATELET COUNT 145 10^3/uL (130-450); RED BLOOD COUNT 3.55 10^6/uL (4.20-5.40); RED CELL DISTRIBUTION WIDTH 13.5 % (12.0-15.0); WHITE BLOOD COUNT 12.3 x10^3/uL (4.8-10.8)
[2020-01-17 06:19] LABS: CALCIUM 8.1 mg/dL (8.5-10.3); CREATININE 0.6 mg/dL (0.4-1.0); PHOSPHORUS 1.9 mg/dL (2.5-4.6)
[2020-01-17] MEDS: ceFAZolin 2 GM in SODIUM CHLORIDE 0.9% 100ML 100 ML IV SCH ×3 (07:06→21:16)
[2020-01-17] MEDS ORDERED: MAGNESIUM OXIDE 400 MG TABLET PO ONE (08:00)
[2020-01-17] MEDS ORDERED: KETOROLAC 15 MG/ML VIAL IVP STA (08:33)
[2020-01-17] MEDS: FAMOTIDINE 20 MG TABLET PO SCH ×2 (08:55→21:15)
[2020-01-17] MEDS ORDERED: POTASSIUM PHOSPHATE 15 MMOL in SODIUM CHLORIDE 0.9% 250 ML IV ONE (09:00)
--- NOTE | 2020-01-17 12:40 | CONSULTATION NOTE ---
Referring Provider Name of Referring Provider:: Dr. Lowe Consult Date: 01/17/20 Chief Complaint - Chief Complaint Chief Complaint: Evaluate lactational mastitis History of Present Illness - History of Present Illness HPI Comment/Other: On 01/14 was busy making cupcakes and running errands. Developed an ache in her left neck that she attributed to a possible muscle pull. Went to bed, on waking she felt sick with shaking and nausea. Got into the bathtub and felt a mass in her left breast. Had been warned about mastitis in the past but she was more worried that it could be covid. [place] weak and was barely able to get herself to the car. Came to the ER for evaluation. Since admission she feels better but not close to well. Still has breast pain though less than before. Feels shaky and chilled. At home she is feeding baby on the nipple q2h. Here she has been pumping q5h. Here she has tried heat, hot shower, massage, and pumping. 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 (and children) - Substance History Use: Uses substance without health or social issues: NONE - POLST Patient has POLST: No Meds/Allgy - Home Medications Home Medications: Ambulatory Orders Medication Instructions Recorded Confirmed Pnv No.103/Folic/Om3s/Fish Oil 1 each PO DAILY 01/16/20 01/16/20 [ Gummies] - Allergies Allergies/Adverse Reactions: Allergies Allergy/AdvReac Type Severity Reaction Status Date / Time No Known Drug Allergies Allergy Verified 01/16/20 08:30 Exam - Vital Signs Reviewed Vital Signs: Yes Vital Signs: Vital Signs x48h Temp Pulse Resp BP Pulse Ox 01/17/20 08:12 98.2 F 98 16 101/62 93 - Physical Exam General Appearance: positive: Alert (Tired) Eyes Bilateral: positive: EOMI Neck: positive: Nml inspection Respiratory: positive: No respiratory distress Cardiovascular: positive: Other (No edema) Abdomen: positive: Non-tender Skin: positive: Warm (Tess erythema on left breast worst between 4:00 and 5:00, extends inferiorly to 9:00) Extremities: positive: Non-tender Neurologic/Psychiatric: positive: Oriented x3, Motor nml Comments/Other: BREASTS: right breast is without skin changes, masses, lymphadenopathy, or nipple changes. Left breast with induration scattered from 4:00 to 9:00 inferiorly. One focal area of thickening between 4-5:00, about [id number], without discrete borders, nonmobile. Tess erythema is present but no other skin changes. No lymphadenopathy or skin disruption. Nipples are symmetric. Conclusion/Plan - Diagnosis Diagnosis: Acute lactational mastitis; septic shock has resolved - Plan Plan: Previously healthy 24yo P2, 7 months s/p delivery of her 2nd child. Acute and rapid onset of mastitis and sepsis. Sepsis has resolved with treatment with vancomycin in ER followed by ancef on the floor, along with IV hydration. Is on day #2 of ancef and received one dose of vancomycin yesterday. Patient still feels "ill" while on ancef alone. Erythma, tenderness, and inflamed breast tissue are still present. Preliminary ultrasound report does NOT reveal an abscess. Recommendations include --Add vancomycin treatment to the ancef due to the severity of her infection. Breast culture is growing an organism but gram stain was negative--ultimately will tailor antibiotic treatment to sensitivities. --Drain the breasts q2h which is the frequency which her infant feeds at home. Has been pumping q5h. --Consider bringing her child to the hospital to breastfeed. Children are more likely to effectively empty the breast than pumping is. Patient has childcare issues for her older child and is uncertain if she can make this happen or not. --Continue heat and breast massage. From outer breast towards nipple, using lanolin. --Lacational nurse coming soon to see if she can offer more tools for effective breast draining. - Lab Results Fish Bones: 01/17/20 05:34 01/17/20 05:34
--- NOTE | 2020-01-17 13:29 | Ultrasound Report ---
PROCEDURE: Breast Unilateral Limited INDICATIONS: L breast mastitis with septic shock TECHNIQUE: Real-time ultrasound scanning was performed at the area of clinical concern involving the areas of clinical concern of the left breast. COMPARISON: None. FINDINGS: Scanning is performed at the area of clinical redness involving the left medial breast. Within this r egion, no focal fluid collections are seen to suggest abscess. Scanning is also performed at the area of the palpable abnormality at the 3:00 to 4:00 position of th e left breast. At this site, there is an elongated tubular structure, which is attributed to a dilate d duct that measures up to 5 mm in caliber. No focal fluid collection is seen to suggest abscess. Inc reased vascularity can be seen within this region. IMPRESSION: Negative for breast abscess. Apparent dilated duct involving the lateral left breast. Please consider follow-up in approximately one month. However, if the patient's clinical condition wo rsens and there remains strong clinical concern for abscess, please consider a follow-up breast ultra sound before then. Note: Concordant preliminary findings given by the manager data warehousing upon the completion of the examination to Dr. Lowe at 12:55 PM on 01/17/2020. Reviewed by: Deon Snow MD on 01/17/2020 12:27 PM JASON Approved by: Deon Snow MD on 01/17/2020 12:27 PM JASON Station ID: [id number]
[2020-01-17] MEDS: IBUPROFEN 600 MG TABLET PO SCH ×2 (13:49→19:15)
[2020-01-17] MEDS ORDERED: LANOLIN 7 GM OINTMENT TOP PRN (14:45)
--- NOTE | 2020-01-17 14:48 | PROVIDER PROGRESS NOTE ---
Assessment/Plan - Problem List (1) Septic shock Assessment/Plan: Her white blood count remains elevated, there have been no fevers, the patient however still feels terrible, weak and achy. Her blood cultures are negative to date. The source is a probable left breast mastitis but the express fluid which was green and purulent, only showed white blood cells and grew only skin organisms. Will resume Vanco and continue the Ancef because she is not getting better. Follow WBC daily. Continue IV fluids for hydration. (2) Acute mastitis of left breast Assessment/Plan: There is worsening of redness and unchanged swelling and tenderness today, of the L breast. A nurse saw her yesterday and advised pumping several times a day, no RN note was written in the chart that I can find. Today I ordered FAGOT HEATER HELPER consult, Dr. Garcia saw her. Dr. Garcia recommends adding Vancomycin back and continue cefazolin, since she is not any better. Will order scheduled NSAIDs to help with the breast pain, swelling and inflammation Ultrasound of the left breast, limited, was also advised by the bailiff. This was done and did not show an abscess. Breast pumping every 2 hours was advised by OB, not just 4 times daily. Massaging the left breast using Lanolin to express the milk and open any ducts, was advised and will be ordered. Breast feeding allows letting down the milk better than just pumping, however now that the patient will be back on iv Vanco, breast feeding will be put on hold. Also the patient was concerned that the baby could catch Covid by coming into the hospital. (3) Hypokalemia Assessment/Plan: Likely related to vomiting and also inadequate p.o. intake after that. Replace Follow BMP daily. (4) Anemia Assessment/Plan: Possibly hemodilutional since she got very aggressive crystalloid treatment with her sepsis. Patient was on vitamins therefore could still have nutritional deficiencies. We will order B12, folate levels and iron stores and replace if low. Will resume oral vitamin. - Current Meds Current Meds: Current Medications Generic Name Dose Route Start Last Admin Trade Name Freq PRN Reason Stop Dose Admin Acetaminophen 650 mg 01/16/20 11:12 01/16/20 16:53 Tylenol PO 650 mg Q4HR PRN Administration Pain or Fever > 38C (100.4F) Hydrocodone Bitart/Acetaminophen 1 tab 01/16/20 11:12 01/17/20 07:04 [place] 5/325 PO 1 tab Q4HR PRN Administration Pain 5 to 7 Famotidine 20 mg 01/16/20 21:00 01/17/20 08:55 Pepcid PO 20 mg BID PRABHJOT Administration Cefazolin Sodium 2 gm/ Sodium 100 mls @ 200 mls/hr 01/16/20 14:00 01/17/20 14:29 Chloride IV Infused Q8H PRABHJOT Infusion Potassium Chloride/Dextrose/Sod Cl 1,000 mls @ 100 mls/hr 01/16/20 13:30 01/17/20 10:59 IV Infused .Q10H PRABHJOT Infusion Potassium Phosphate 15 mmol/ 255 mls @ 42.5 mls/hr 01/17/20 09:00 01/17/20 08:56 Sodium Chloride IV 01/17/20 14:59 42.5 mls/hr ONCE ONE Administration Ibuprofen 600 mg 01/17/20 14:00 01/17/20 13:49 Motrin PO 600 mg Q6HR PRABHJOT Administration Ondansetron HCl 4 mg 01/16/20 11:12 01/17/20 01:13 Zofran Inj IVP 4 mg Q6HR PRN Administration Nausea / Vomiting Sodium Chloride 10 ml 01/16/20 17:00 01/17/20 08:56 Normal Saline Flush 0.9% IVP 10 ml 0100,0900,1700 PRABHJOT Administration Sodium Chloride 10 ml 01/16/20 11:12 01/17/20 02:41 Normal Saline Flush 0.9% IVP 10 ml PRN PRN Administration NEEDED PER PROVIDER ORDERS - Lab Result Fish Bone Diagrams: 01/17/20 05:34 01/17/20 05:34 - Additional Planning My Orders: My Active Orders 01/16/20 14:00 ceFAZolin [Ancef] 2 gm Sodium Chloride 0.9% 100Ml [Normal Saline 0.9% 100Ml] 100 ml IV Q8H 01/16/20 14:20 CUL,WOUND (AEROBIC) [RM] Routine 01/16/20 17:00 Sodium Chloride Flush 0.9% [Normal Saline Flush 0.9%] 10 ml IVP 0100,0900,1700 01/16/20 21:00 Famotidine [Pepcid] 20 mg PO BID 01/17/20 Consult [Gynecology Consult] [CONS] Routine 01/17/20 14:00 Ibuprofen [Motrin] 600 mg PO Q6HR 01/17/20 14:43 Miscellaenous Nursing Order [RC] QSHIFT 01/17/20 14:45 Vancomycin: Pharmacy To Dose [Vancomycin-Pharmacy To Dose] 1 each MC ONCE PRN 01/17/20 14:45 Lanolin [Lansinoh] 1 gm TOP Q2H PRN 01/18/20 05:00 BMP - BASIC METABOLIC PANEL [CHEM] DAILYLAB CBC - COMP BLD CT W/AUTO DIFF [HEME] DAILYLAB Subjective - Subjective Patient Reports: Other (Feels "sick", poor appetite, but has less pain this afternoon of the left breast, after pumping.) Objective Vital Signs: Vital Signs - 24 hr 01/16/20 01/16/20 01/16/20 15:05 17:00 21:00 Temperature 37.3 C 37.1 C 37.5 C Heart Rate 99 Heart Rate [ 107 H Brachial] Heart Rate [ 94 Monitoring electrodes] Respiratory 22 16 18 Rate Blood Pressure 98/54 L [Left Brachial artery] Blood Pressure 110/56 L [Right Brachial artery] O2 Saturation 96 96 99 01/17/20 01/17/20 01/17/20 00:57 03:07 08:12 Temperature 37.2 C 37.4 C 36.8 C Heart Rate Heart Rate [ 100 108 H 98 Brachial] Heart Rate [ Monitoring electrodes] Respiratory 16 16 16 Rate Blood Pressure [Left Brachial artery] Blood Pressure 91/53 L 99/53 L 101/62 [Right Brachial artery] O2 Saturation 99 100 93 01/17/20 13:00 Temperature Heart Rate Heart Rate [ Brachial] Heart Rate [ 101 H Monitoring electrodes] Respiratory 18 Rate Blood Pressure 116/51 L [Left Brachial artery] Blood Pressure [Right Brachial artery] O2 Saturation 99 Oxygen O2 Source Room air I&O (Last 24 Hrs): Intake and Output Totals x24h 01/15/20 01/16/20 01/17/20 23:59 23:59 23:59 Intake Total 4093.7 2700 Output Total 700 1025 Balance 3393.7 1675 General: Alert, Oriented x3 HEENT: Other (Dry mucosa and eyes appear very fatigued) Neck: Supple Neuro: Alert, Non Focal Cardiovascular: Regular rate, No murmurs Respiratory: No respiratory distress Abdomen: Normal bowel sounds, Soft Extremities: No edema Skin: No breakdown (The left breast now has new redness approximately 4 cm in a circular area, around the entire L areola, but there is much less swelling and tightness than yesterday and less tenderness.) - Results Results: Laboratory Results WBC 12.3 x10^3/uL (4.8-10.8) H 01/17/20 05:34 RBC 3.55 10^6/uL (4.20-5.40) L 01/17/20 05:34 Hgb 10.8 g/dL (12.0-16.0) L 01/17/20 05:34 Hct 34.0 % (37.0-47.0) L 01/17/20 05:34 MCV 95.8 fL (81.0-99.0) 01/17/20 05:34 MCH 30.4 pg (27.0-31.0) 01/17/20 05:34 MCHC 31.8 g/dL (32.0-36.0) L 01/17/20 05:34 RDW 13.5 % (12.0-15.0) 01/17/20 05:34 Plt Count 145 10^3/uL (130-450) 01/17/20 05:34 MPV 11.0 fL (7.9-10.8) H 01/17/20 05:34 Neut # (Auto) 9.1 10^3/uL (1.5-6.6) H 01/17/20 05:34 Lymph # (Auto) 1.8 10^3/uL (1.5-3.5) 01/17/20 05:34 [place] # (Auto) 0.8 10^3/uL (0.0-1.0) 01/17/20 05:34 Eos # (Auto) 0.5 10^3/uL (0.0-0.7) 01/17/20 05:34 Baso # (Auto) 0.0 10^3/uL (0.0-0.1) 01/17/20 05:34 Absolute Nucleated RBC 0.00 x10^3/uL 01/17/20 05:34 Nucleated RBC % 0.0 /100WBC 01/17/20 05:34 PT 14.7 secs (9.9-12.6) H 01/16/20 11:34 INR 1.3 (0.8-1.2) H 01/16/20 11:34 Sodium 142 mmol/L (135-145) 01/17/20 05:34 Potassium 3.4 mmol/L (3.5-5.0) L 01/17/20 05:34 Chloride 111 mmol/L (101-111) 01/17/20 05:34 Carbon Dioxide 23 mmol/L (21-32) 01/17/20 05:34 Anion Gap 8.0 (6-13) 01/17/20 05:34 BUN 13 mg/dL (6-20) 01/17/20 05:34 Creatinine 0.6 mg/dL (0.4-1.0) 01/17/20 05:34 Estimated GFR (MDRD) 123 (>89) 01/17/20 05:34 Glucose 169 mg/dL (70-100) H 01/17/20 05:34 Lactic Acid 0.9 mmol/L (0.5-2.2) 01/16/20 12:15 Calcium 8.1 mg/dL (8.5-10.3) L 01/17/20 05:34 Phosphorus 1.9 mg/dL (2.5-4.6) L 01/17/20 05:34 Magnesium 2.0 mg/dL (1.7-2.8) 01/17/20 05:34 Total Bilirubin 1.8 mg/dL (0.2-1.0) H 01/16/20 08:35 AST 27 IU/L (10-42) 01/16/20 08:35 ALT 21 IU/L (10-60) 01/16/20 08:35 Alkaline Phosphatase 65 IU/L (42-121) 01/16/20 08:35 Total Protein 7.9 g/dL (6.7-8.2) 01/16/20 08:35 Albumin 4.2 g/dL (3.2-5.5) 01/16/20 08:35 Globulin 3.7 g/dL (2.1-4.2) 01/16/20 08:35 Albumin/Globulin Ratio 1.1 (1.0-2.2) 01/16/20 08:35 Urine Color YELLOW 01/16/20 12:05 Urine Clarity CLEAR (CLEAR) 01/16/20 12:05 Urine pH 7.5 PH (5.0-7.5) 01/16/20 12:05 Ur Specific [place] 1.020 (1.002-1.030) 01/16/20 12:05 Urine Protein NEGATIVE mg/dL (NEGATIVE) 01/16/20 12:05 Urine Glucose (UA) NEGATIVE mg/dL (NEGATIVE) 01/16/20 12:05 Urine Ketones TRACE mg/dL (NEGATIVE) 01/16/20 12:05 Urine Occult Blood NEGATIVE (NEGATIVE) 01/16/20 12:05 Urine Nitrite NEGATIVE (NEGATIVE) 01/16/20 12:05 Urine Bilirubin NEGATIVE (NEGATIVE) 01/16/20 12:05 Urine Urobilinogen 0.2 (NORMAL) E.U./dL (NORMAL) 01/16/20 12:05 Ur Leukocyte Esterase NEGATIVE (NEGATIVE) 01/16/20 12:05 Urine RBC None Seen /HPF (0-5) 01/16/20 12:05 Urine WBC 0-3 /HPF (0-5) 01/16/20 12:05 Ur Squamous Epith Cells FEW Squamous (<= Few) 01/16/20 12:05 Urine Bacteria None Seen /HPF (None Seen) 01/16/20 12:05 Urine Culture Comments NOT INDICATED 01/16/20 12:05 - Procedures Procedures: Procedures (06/19/17) EXTRACTION OF POC, LOW CERVICAL, OPEN APPROACH (06/04/19)
--- NOTE | 2020-01-17 15:41 | PHARMACY PROGRESS NOTE ---
- Therapy Status Vancomycin regimen day #: 1 Therapy status: Awaiting steady state Basis for treatment: Empirical Treatment indication: worsening mastitis Trough goal: 10-15 Concurrent antibiotics: cefazolin - ARACELI Risk Risk level for Acute Kidney Injury: Low Acute Kidney Injury risk factors: Wt >100kg or BMI >40 - Monitoring and Recommendation Clinical response to treatment: I&O Previous 24 hours 01/15/20 01/16/20 01/17/20 23:59 23:59 23:59 Intake Total 4093.7 2700 Output Total 700 1025 Balance 3393.7 1675 Lab Results 01/17/20 01/16/20 05:34 08:35 BUN 13 21 H Creatinine 0.6 0.8 Estimated GFR (MDRD) 123 88 L Cultures 01/16/20 14:20 Breast - Left Wound Culture - Preliminary 01/16/20 08:54 Blood - Left Hand Blood Culture - Preliminary NO GROWTH AFTER 1 DAY 01/16/20 08:35 Blood - Right Hand Blood Culture - Preliminary NO GROWTH AFTER 1 DAY Monitoring plan: Daily serum creatinine Next trough due prior to maintenance dose #: 5 Next trough due (date/time): 01/18 @7630 Areas for additional monitoring: IV to PO when appropriate, Therapy de-escalati on based on culture results Pharmacy recommendation: Continue current regime
[2020-01-17] MEDS ORDERED: VANCOMYCIN INJ 2 GM in SODIUM CHLORIDE 0.9% 500 ML IV ONE (16:00)
[2020-01-17] MEDS: PRENATAL VITAMIN TABLET PO SCH (17:48)
[2020-01-18] MEDS: VANCOMYCIN INJ 1 GM, VANCOMYCIN INJ 500 MG in SODIUM CHLORIDE 0.9% 500 ML IV SCH ×2 (00:52→08:11)
[2020-01-18] MEDS: IBUPROFEN 600 MG TABLET PO SCH ×2 (00:52→06:34)
[2020-01-18] MEDS: SODIUM CHLORIDE FLUSH 0.9% 10 ML SYRINGE IVP SCH (00:53)
[2020-01-18] MEDS ORDERED: SODIUM CHLORIDE 0.9% 500 ML IV ONE (00:54)
[2020-01-18 05:57] LABS: BASOPHILS % (AUTO) 0.3 %; EOSINOPHILS # (AUTO) 0.6 10^3/uL (0.0-0.7); EOSINOPHILS % (AUTO) 7.9 %; HGB - HEMOGLOBIN 10.9 g/dL (12.0-16.0); LYMPHOCYTES # (AUTO) 1.8 10^3/uL (1.5-3.5); LYMPHOCYTES % (AUTO) 24.8 %; MEAN CORPUSCULAR HEMOGLOBIN 30.6 pg (27.0-31.0); MEAN CORPUSCULAR VOLUME 95.8 fL (81.0-99.0); MEAN PLATELET VOLUME 10.5 fL (7.9-10.8); MONOCYTES # (AUTO) 0.6 10^3/uL (0.0-1.0); MONOCYTES % (AUTO) 8.3 %; NEUTROPHILS # (AUTO) 4.3 10^3/uL (1.5-6.6); NEUTROPHILS % (AUTO) 58.3 %; PLT - PLATELET COUNT 141 10^3/uL (130-450); RED BLOOD COUNT 3.56 10^6/uL (4.20-5.40); RED CELL DISTRIBUTION WIDTH 13.2 % (12.0-15.0); WHITE BLOOD COUNT 7.4 x10^3/uL (4.8-10.8)
[2020-01-18 06:15] LABS: CALCIUM 8.5 mg/dL (8.5-10.3); CREATININE 0.5 mg/dL (0.4-1.0)
[2020-01-18] MEDS: ceFAZolin 2 GM in SODIUM CHLORIDE 0.9% 100ML 100 ML IV SCH (06:34)
[2020-01-18] MEDS: D5NS W/20 MEQ KCL 1,000 ML IV SCH (06:35)
[2020-01-18 06:36] LABS: FOLATE 22.84 ng/mL (5.90 - >24.8)
[2020-01-18] MEDS: FAMOTIDINE 20 MG TABLET PO SCH (08:10)
[2020-01-18] MEDS: PRENATAL VITAMIN TABLET PO SCH (08:10)
[2020-01-18] MEDS ORDERED: polyethylene glycoL 3350 17 GM PACKET PO SCH (09:00)
--- NOTE | 2020-01-18 09:14 | PROVIDER PROGRESS NOTE ---
Subjective - Subjective Subjective: [employer]ADER [employer] TONER note: S: feeling MUCH better, no breast pain. Worked on massage in the shower for 30min and was able to express her breast to nearly empty. Feels well. Wants to go home. O: AVSS tachycarida has resolved; afebrile for >24h Alert, smiling, appears well, NAD Breast soft and nontender, erythema is totally gone A/P: Lactational mastitis, treated. Continue keflex for 7 more days for 10d of treatment. OK to breastfeed without discarding milk. Follow up PRN worsening symptoms. Objective - Vital Signs/Intake & Output Vital Signs: Vital Signs x48h Temp Pulse Resp BP BP Pulse Ox 01/18/20 08:11 98.1 F 75 16 126/60 99 01/18/20 05:00 97.7 F 89 107/70 99 Intake & Output: Intake & Output 01/15/20 01/16/20 01/17/20 01/18/20 23:59 23:59 23:59 22:59 Intake Total 4093.7 3955 1840 Output Total 700 2425 1150 Balance 3393.7 1530 690 - Lab Results Fish Bones: 01/18/20 05:42 01/18/20 05:42 Other Labs: Lab Results x24hrs 01/18/20 01/18/20 01/18/20 Range/Units 05:42 05:42 05:42 WBC 7.4 (4.8-10.8) x10^3/uL RBC 3.56 L (4.20-5.40) 10^6/uL Hgb 10.9 L (12.0-16.0) g/dL Hct 34.1 L (37.0-47.0) % MCV 95.8 (81.0-99.0) fL MCH 30.6 (27.0-31.0) pg MCHC 32.0 (32.0-36.0) g/dL RDW 13.2 (12.0-15.0) % Plt Count 141 (130-450) 10^3/uL MPV 10.5 (7.9-10.8) fL Neut # (Auto) 4.3 (1.5-6.6) 10^3/uL Lymph # (Auto) 1.8 (1.5-3.5) 10^3/uL [place] # (Auto) 0.6 (0.0-1.0) 10^3/uL Eos # (Auto) 0.6 (0.0-0.7) 10^3/uL Baso # (Auto) 0.0 (0.0-0.1) 10^3/uL Absolute Nucleated RBC 0.00 x10^3/uL Nucleated RBC % 0.0 /100WBC Sodium 142 (135-145) mmol/L Potassium 3.9 (3.5-5.0) mmol/L Chloride 111 (101-111) mmol/L Carbon Dioxide 24 (21-32) mmol/L Anion Gap 7.0 (6-13) BUN 7 (6-20) mg/dL Creatinine 0.5 (0.4-1.0) mg/dL Estimated GFR (MDRD) 152 (>89) Glucose 127 H (70-100) mg/dL Calcium 8.5 (8.5-10.3) mg/dL Iron 22 L (28-170) ug/dL TIBC 244 L (250-450) ug/dL % Saturation 9 L (20-50) % Transferrin 174 L (192-382) mg/dL Vitamin B12 348 (180-914) pg/mL Folate 22.84 (5.90 - >24.8) ng/mL
--- NOTE | 2020-01-18 09:17 | Discharge Plan ---
Discharge Plan Problem Reviewed?: Yes Disposition: Home, Self Care Condition: Stable Prescriptions: L. Acidophilus/Pectin, [place] [Acidophilus Capsule] 1 each PO DAILY #7 capsule cephALEXin [Keflex] 250 mg PO QID #28 capsule Ibuprofen [Motrin] 600 mg PO QID PRN #28 tablet PRN Reason: Pain Diet: Regular Activity Restrictions: Activity as Tolerated Shower Restrictions: No Driving Restrictions: No Instruction Topics: ED Breast Infec Health Concerns: You were admitted with a significant systemic infection caused by mastitis (breast infection). You are being discharged home to take 7 more days of antibiotics using Keflex 4 times a day. Please finish the antibiotics as prescribed. Antibiotics can cause diarrhea, therefore you have also been prescribed a probiotic called Florastor, or you can take probiotics in the form of yogurt with active cultures. Prescription-strength Motrin has been ordered for you to use to treat pain and swelling of the left breast. The new prescriptions were sent to your [facility] pharmacy in [place]. Follow the instructions given to you by the nurse and Sports Announcer for managing your left breast: Massage it as needed, using the lanolin or other topical cream, you may breast-feed as often as every 2 hours on that L side. Plan of Treatment: As above. Care Goals: Improvement in symptoms and stabilization are the goals. Assessment: The patient understands and is agreeable with the plan. Additional Instructions or Follow Up instructions: If you have new or worsening symptoms, call your PCP or your Sports Announcer for advice, or come to the ER. No Smoking: If you smoke, Please STOP! Call for help.
--- NOTE | 2020-01-18 09:24 | DISCHARGE SUMMARY ---
Discharge Summary Admit Date: 01/16/20 Discharge Date: 01/18/20 Discharging Provider: Dr Rosaura Lowe Primary Care Provider: Paulette PISANO Code Status: Attempt Resuscitation Condition at Discharge: Stable Discharge Disposition: 01 Home, Self Care - [facility] History of Present Illness: This is a 24 y/o WF with neg PMH, has had 2 pregnancies, the last delivery was 7 mos ago, and she is still breast feeding. Yesterday she developed achiness and went to bed early. At 4 am she awoke with shaking chills and had nausea and vomited, felt very weak and came to the ER. She was found to have a blood pressure of 90 systolic, heart rate of 122, was febrile at 39.6C, had elevated WBC of 10.2 and elevated lactic acid level of 2.1. The source of infection gemma eared to be her left breast, which was swollen and tender, and she reported it had been getting worse over 2 days. She will be admitted to Inpatient status for treating septic shock and mastitis. - HOSPITAL COURSE Hospital Course: (1) Septic shock Her white blood count remained elevated, there were no further fevers, her blood cultures were negative to date. The source was left breast mastitis and the expressed fluid was green. Gram stain of the fluid showed white blood cells and grew only skin organisms. She was treated with Vanco and Ancef and received IV fluids for hydration. (2) Acute mastitis of left breast By the second day, she developed worsening redness and unchanged swelling and tenderness of the L breast. A Nurse saw her and advised pumping several times a day, but no note was written with advice. An FOUNDATION ENGINEER consult was requestd and done by Dr. Garcia, who recommended adding Vancomycin and continue Ancef, since she was not better. Breast feeding was put on hold. The patient received scheduled NSAIDs to help with the breast pain, swelling and inflammation. Ultrasound of the left breast, limited, was also advised by the hammer runner. This was done and did not show an abscess. Breast pumping every 2 hours was advised by OB, not just 4 times daily. Massaging the left breast using Lanolin to express the milk and open any ducts, was advised as well. By the next day, she felt much better. At discharge, she was prescribed warm soaks and to finish a course of Keflex with Acidophilus. Breast feeding could resume. (3) Hypokalemia Likely related to vomiting and also inadequate p.o. intake after that. It was replaced. (4) Anemia Her Hgb at admission was 13.6 which dropped to 10.9. This was probably h emodilutional since she got very aggressive crystalloid treatment with her sepsis. Patient was on vitamins which were continued. - ALLERGIES Allergies/Adverse Reactions: Allergies Allergy/AdvReac Type Severity Reaction Status Date / Time No Known Drug Allergies Allergy Verified 01/16/20 08:30 - MEDICATIONS Home Medications: Ambulatory Orders Medication Instructions Recorded Confirmed Pnv No.103/Folic/Om3s/Fish Oil 1 each PO DAILY 01/16/20 01/16/20 [ Gummies] Ibuprofen [Motrin] 600 mg PO QID PRN #28 tablet 01/18/20 L. Acidophilus/Pectin, [place] 1 each PO DAILY #7 capsule 01/18/20 [Acidophilus Capsule] cephALEXin [Keflex] 250 mg PO QID #28 capsule 01/18/20 - PHYSICAL EXAM AT DISCHARGE General Appearance: positive: No acute distress, Alert Eyes Bilateral: positive: Normal inspection, EOMI ENT: positive: ENT inspection nml, No signs of dehydration Neck: positive: Nml inspection, No JVD Respiratory: positive: No respiratory distress, Breath sounds nml Cardiovascular: positive: Regular rate & rhythm, No murmur Abdomen: positive: Non-tender, Nml bowel sounds, No distention Skin: positive: Warm, Dry, Other (L breast appeared normal at discharge) Extremities: positive: Non-tender, No pedal edema Neurologic/Psychiatric: positive: Oriented x3, Motor nml - LABS Result Diagrams: 01/18/20 05:42 01/18/20 05:42 - DIAGNOSTIC IMAGING Diagnostic Imaging Results: Final report reviewed - FOLLOW UP Follow Up: See PCP in 5-10 days for hospital follow-up. - TIME SPENT Time Spent in Discharge (Minutes): 35
[2020-01-18 11:27] VITALS: BP 119/75
== END 2020-01-18 11:40 | disposition home or self-care (01) | DRG 776 ==
LOC: ED 08:09 → MS2 10:58
PROVIDERS: ADMIT Internal Medicine; ATTEND Internal Medicine
DX: O85 Puerperal sepsis (principal); R65.21 Severe sepsis with septic shock; O91.23 Nonpurulent mastitis associated with lactation; E87.6 Hypokalemia; D64.9 Anemia, unspecified; R79.89 Other specified abnormal findings of blood chemistry
CPT/HCPCS: 36415; 71045; 76642; 80048; 80053; 81001; 82607; 82746; 83540; 83605; 83735; 84100; 84466; 85025; 85610; 87040; 87070; 87205; 87493; 96374; 96375; 99284; 99285; 99403; A9270; J3370; 87086; 87150

== ENCOUNTER 2020-01-19 08:00 | Outpatient (CLI) | payer MEDICAID | END 2020-01-19 23:59 | disposition home or self-care (01) | LOC: LAB.R 08:00 | PROVIDERS: ATTEND Nurse Practitioner Family | DX: R06.00 Dyspnea, unspecified (principal); Z20.828 Contact with and (suspected) exposure to other viral communicable diseases ==

== ENCOUNTER 2021-02-18 01:24 | Emergency (ER) | payer MEDICAID ==
[2021-02-18] MEDS ORDERED: ACETAMINOPHEN 325 MG TABLET PO STA (01:54)
[2021-02-18] MEDS ORDERED: oxyCODONE 5 MG TABLET PO STA (01:54)
[2021-02-18] MEDS ORDERED: KETOROLAC 30 MG/ML VIAL IM STA (01:54)
[2021-02-18] MEDS ORDERED: DOXYCYCLINE 100 MG TABLET PO STA (01:55)
--- NOTE | 2021-02-18 02:03 | ED Physician Documentation ---
History of Present Illness - Stated complaint Stated Complaint: BUMP ON REAR END - Chief complaint Chief Complaint: General - History obtained from History obtained from: Patient - Additonal information Additional information: 25yF, previously healthy p/w L inner buttock and perianal pain over the past couple days, gradual onset, worsening progressively, constant, throbbing, 8/10. denies fevers or other symptoms. 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 Acidophilus/Pectin, [place] 1 each PO DAILY #7 capsule 01/18/20 [Acidophilus Capsule] cephALEXin [Keflex] 250 mg PO QID #28 capsule 01/18/20 Doxycycline Hyclate 100 mg PO BID 10 Days #20 tab 02/18/21 - Allergies Allergies/Adverse Reactions: Allergies Allergy/AdvReac Type Severity Reaction Status Date / Time No Known Drug Allergies Allergy Verified 02/18/21 01:29 - Social History Does the pt smoke?: No Smoking Status: Never smoker Does the pt drink ETOH?: No Does the pt have substance abuse?: No - Immunizations Immunizations are current?: Yes - POLST Patient has POLST: No PD ED PE NORMAL - Vitals Vital signs reviewed: Yes - General General: Alert and oriented X 3, No acute distress, Well developed/nourished - HEENT HEENT: Atraumatic, PERRL, EOMI - Neck Neck: Supple, no meningeal sign - Derm Derm: Normal color, Warm and dry, Other (erythema to L perianal area) - Neuro Neuro: Alert and oriented X 3 - Psych Psych: Normal mood, Normal affect Results - Vitals Vitals: Vital Signs - 24 hr 02/18/21 01:27 Temperature 37 C Heart Rate 106 H Respiratory 18 Rate Blood Pressure 120/86 H O2 Saturation 98 Oxygen O2 Source Room air Procedures - General procedure General procedure: POCUS at the bedside identified cellulitis of L perianal area with developing phlegmon. no discrete abscess formation as of yet therefore incision and drainage was deferred at this time. Antibiotics and surgery clinic referral provided. PD MEDICAL DECISION MAKING - ED course ED course: 25yF presents with erythema and developing phlegmon to L buttock not yet amenable to drainage. Symptomatic care provided in ED as well as first dose of antibiotics and referral to surgery clinic. return precautions given. Departure - Departure Disposition: 01 Home, Self Care Clinical Impression: Cellulitis of buttock, left, Phlegmon Condition: Stable Instructions: ED Infec Skin Cellulitis Follow-Up: Xu Bee MD [Provider Admit Priv/Credential] - Prescriptions: Doxycycline Hyclate 100 mg PO BID 10 Days #20 tab Comments: You were seen in the emergency department for a developing infection on your left buttock near the anus. Please take your antibiotics as prescribed and plan to follow up with surgery clinic this week for evaluation and possible drainage. return to the emergency department if you have new or worsening symptoms or other concerns.
[2021-02-18 02:27] VITALS: BP 117/80
== END 2021-02-18 02:27 | disposition home or self-care (01) ==
LOC: ED 01:24
DX: L03.317 Cellulitis of buttock (principal); L02.31 Cutaneous abscess of buttock
CPT/HCPCS: 96372; 99283; A9270

== ENCOUNTER 2021-06-22 13:37 | Outpatient (CLI) | payer MEDICAID ==
[2021-06-22 18:10] LABS: BASOPHILS % (AUTO) 0.5 %; EOSINOPHILS # (AUTO) 0.1 10^3/uL (0.0-0.7); EOSINOPHILS % (AUTO) 1.3 %; LYMPHOCYTES # (AUTO) 2.5 10^3/uL (1.5-3.5); LYMPHOCYTES % (AUTO) 32.8 %; MEAN CORPUSCULAR HEMOGLOBIN 30.6 pg (27.0-31.0); MEAN CORPUSCULAR HGB CONC 33.3 g/dL (32.0-36.0); MEAN CORPUSCULAR VOLUME 91.7 fL (81.0-99.0); MEAN PLATELET VOLUME 12.1 fL (7.9-10.8); MONOCYTES # (AUTO) 0.6 10^3/uL (0.0-1.0); MONOCYTES % (AUTO) 7.9 %; NEUTROPHILS # (AUTO) 4.3 10^3/uL (1.5-6.6); NEUTROPHILS % (AUTO) 57.4 %; PLT - PLATELET COUNT 217 10^3/uL (130-450); RED BLOOD COUNT 4.58 10^6/uL (4.20-5.40); RED CELL DISTRIBUTION WIDTH 12.2 % (12.0-15.0); WHITE BLOOD COUNT 7.5 x10^3/uL (4.8-10.8)
[2021-06-22 18:46] LABS: ALBUMIN 3.9 g/dL (3.2-5.5); ALBUMIN/GLOBULIN RATIO 1.1 (1.0-2.2); CALCIUM 9.3 mg/dL (8.5-10.3); CREATININE 0.7 mg/dL (0.4-1.0); POTASSIUM 4.4 mmol/L (3.5-5.0); TOTAL PROTEIN 7.4 g/dL (6.7-8.2)
[2021-06-22 18:56] LABS: THYROID STIMULATING HORMONE 1.25 uIU/mL (0.34-5.60)
[2021-06-22 19:00] LABS: FERRITIN 28.4 ng/mL (11.0-306.8)
== END 2021-06-22 13:38 | disposition home or self-care (01) ==
LOC: LAB.N 13:37
PROVIDERS: ATTEND Physician Assistant
DX: R53.83 Other fatigue (principal); L65.9 Nonscarring hair loss, unspecified
CPT/HCPCS: 36415; 80050; 82728; 83540; 84466

== ENCOUNTER 2021-06-25 09:21 | Outpatient (CLI) | payer MEDICAID ==
[2021-06-25 13:57] LABS: CREATININE,URINE 162.9 mg/dL; MICROALBUM/CREATININE RATIO,UR 3.1 ug/mg (<30.0); MICROALBUMIN,URINE 0.5 mg/dL (0-300.0)
[2021-06-25 14:02] LABS: CHOL/HDL RATIO 4.5 (<4.4); CHOLESTEROL 265 mg/dL; HDL CHOLESTEROL 59 mg/dL; LDL CHOLESTEROL,CALCULATED 184 mg/dL; LDL/HDL RATIO 3.1 (<4.4); TRIGLYCERIDES 112 mg/dL; VLDL CHOLESTEROL 22 mg/dL
[2021-06-25 20:25] LABS: ESTIMATED AVERAGE GLUCOSE 318 mg/dL (70-100); HEMOGLOBIN A1c% 12.7 % (4.27-6.07)
== END 2021-06-25 09:22 | disposition home or self-care (01) ==
LOC: LAB.N 09:21
PROVIDERS: ATTEND Physician Assistant
DX: R73.9 Hyperglycemia, unspecified (principal)
CPT/HCPCS: 36415; 80061; 82043; 82570; 83036; 83721

== ENCOUNTER 2021-06-28 08:36 | Outpatient (CLI) | payer MEDICAID ==
[2021-06-28 12:59] LABS: CALCIUM 9.2 mg/dL (8.5-10.3); CREATININE 0.7 mg/dL (0.4-1.0); POTASSIUM 4.2 mmol/L (3.5-5.0)
[2021-06-28 13:04] LABS: THYROID STIMULATING HORMONE 1.48 uIU/mL (0.34-5.60)
== END 2021-06-28 08:37 | disposition home or self-care (01) ==
LOC: LAB.N 08:36
PROVIDERS: ATTEND Physician Assistant
DX: R73.9 Hyperglycemia, unspecified (principal)
CPT/HCPCS: 36415; 80048; 81599; 84443; 84681; 86337; 86341

== ENCOUNTER 2021-10-06 09:32 | Outpatient (CLI) | payer MEDICAID ==
[2021-10-06 20:38] LABS: ESTIMATED AVERAGE GLUCOSE 117 mg/dL (70-100); HEMOGLOBIN A1c% 5.7 % (4.27-6.07)
== END 2021-10-06 09:33 | disposition home or self-care (01) ==
LOC: LAB.N 09:32
PROVIDERS: ATTEND Physician Assistant
DX: E10.65 Type 1 diabetes mellitus with hyperglycemia (principal)
CPT/HCPCS: 36415; 83036

== ENCOUNTER 2022-01-11 10:54 | Outpatient (CLI) | payer MEDICAID ==
[2022-01-11 18:13] LABS: CALCIUM 9.2 mg/dL (8.5-10.3); CREATININE 0.7 mg/dL (0.4-1.0); POTASSIUM 4.5 mmol/L (3.5-5.0)
[2022-01-11 18:34] LABS: CREATININE,URINE 186.9 mg/dL; MICROALBUM/CREATININE RATIO,UR 2.1 ug/mg (<30.0); MICROALBUMIN,URINE 0.4 mg/dL (0-300.0)
[2022-01-11 20:20] LABS: ESTIMATED AVERAGE GLUCOSE 103 mg/dL (70-100); HEMOGLOBIN A1c% 5.2 % (4.27-6.07)
== END 2022-01-11 10:55 | disposition home or self-care (01) ==
LOC: LAB.N 10:54
PROVIDERS: ATTEND Physician Assistant
DX: E10.65 Type 1 diabetes mellitus with hyperglycemia (principal)
CPT/HCPCS: 36415; 80048; 82043; 82570; 83036

== ENCOUNTER 2022-07-06 09:10 | Outpatient (CLI) | payer MEDICAID ==
[2022-07-06 12:15] LABS: ESTIMATED AVERAGE GLUCOSE 126 mg/dL (70-100)
== END 2022-07-06 09:11 | disposition home or self-care (01) ==
LOC: LAB.N 09:10
PROVIDERS: ATTEND Physician Assistant
DX: E10.65 Type 1 diabetes mellitus with hyperglycemia (principal)
CPT/HCPCS: 36415; 83036

== ENCOUNTER 2022-07-06 21:15 | Emergency (ER) | payer MEDICAID ==
[2022-07-06 21:36] LABS: BILIRUBIN,URINE NEGATIVE (NEGATIVE); GLUCOSE, URINE (UA) NEGATIVE (NEGATIVE); KETONES,URINE (UA) NEGATIVE (NEGATIVE); LEUKOCYTE ESTERASE, URINE NEGATIVE (NEGATIVE); NITRITE,URINE NEGATIVE (NEGATIVE); OCCULT BLOOD,URINE NEGATIVE (NEGATIVE); PH,URINE 6.5 PH (5.0-7.5); PROTEIN,URINE NEGATIVE (NEGATIVE); UROBILINOGEN,URINE 0.2 (NORMAL) E.U./dL (NORMAL)
[2022-07-06 21:39] LABS: CLARITY,URINE CLEAR (CLEAR); HCG UR QUAL NEGATIVE
--- NOTE | 2022-07-06 21:43 | ED Physician Documentation ---
History of Present Illness - Stated complaint Stated Complaint: FEMALE - History obtained from History obtained from: Patient - Additonal information Additional information: The patient comes to the emergency department chief complaint of dysuria and lower abdominal cramping over the last couple of days. She is also noticed dark urine. No blood in her urine. She denies any fevers or chills. No nausea or vomiting. The patient is sexually active with 1 partner and has been long-term. She is not known to be . No vaginal discharge or bleeding. The patient is a type I diabetic and states that her blood sugar has been "sk yrocketing". She has also noticed a sore throat recently. She did take a COVID test earlier today and this was negative. PD PAST MEDICAL HISTORY - Past Medical History Cardiovascular: None Respiratory: None Neuro: None Endocrine/Autoimmune: Type 1 diabetes GI: GERD LATHE HAND: None : None HEENT: None Psych: Depression Musculoskeletal: None Derm: None - Past Surgical History Past Surgical History: Yes General: Colonoscopy /LATHE HAND: section - Present Medications Home Medications: Ambulatory Orders Medication Instructions Recorded Confirmed Insulin Glargine [Lantus Solostar] 10 units SUBQ QPM 07/27/21 07/06/22 Insulin Lispro [Humalog Kwikpen 1 - 4 unit SUBQ TIDWM 07/27/21 07/06/22 U-100] - Allergies Allergies/Adverse Reactions: Allergies Allergy/AdvReac Type Severity Reaction Status Date / Time No Known Drug Allergies Allergy Verified 07/06/22 21:58 - Social History Does the pt smoke?: No Smoking Status: Never smoker Does the pt drink ETOH?: No Does the pt have substance abuse?: No - Immunizations Immunizations are current?: Yes - POLST Patient has POLST: No PD ED PE NORMAL - Vitals Vital signs reviewed: Yes - General General: Alert and oriented X 3, No acute distress, Well developed/nourished - HEENT HEENT: PERRL - Cardiac Cardiac: RRR, No murmur - Respiratory Respiratory: Clear bilaterally - Abdomen Abdomen: Normal bowel sounds, Soft, Non tender, Non distended - Derm Derm: Warm and dry - Extremities Extremities: No deformity - Neuro Neuro: Alert and oriented X 3 - Psych Psych: Normal mood, Normal affect Results - Vitals Vitals: Vital Signs - 24 hr 0407/06/22 07/06/22 21:25 22:12 22:43 Temperature 38.8 C H 38.1 C H Heart Rate 120 H 105 H 105 H Respiratory 6 L 21 23 Rate Blood Pressure 138/76 H 111/66 116/69 O2 Saturation 100 100 100 07/06/22 07/07/22 23:22 00:47 Temperature 37.9 C 37.2 C Heart Rate 108 H 96 Respiratory 26 H 19 Rate Blood Pressure 122/72 103/59 L O2 Saturation 98 95 Oxygen O2 Source Room air - Labs Labs: Laboratory Tests 07/06/22 07/06/22 07/06/22 21:30 21:34 21:34 WBC RBC Hgb Hct MCV MCH MCHC RDW Plt Count MPV Neut # (Auto) Lymph # (Auto) [place] # (Auto) Eos # (Auto) Baso # (Auto) Absolute Nucleated RBC Nucleated RBC % Platelet Estimate POC Whole Bld Glucose Lactic Acid Urine Color YELLOW Urine Clarity CLEAR Urine pH 6.5 Ur Specific [place] 1.015 Urine Protein NEGATIVE Urine Glucose (UA) NEGATIVE Urine Ketones NEGATIVE Urine Occult Blood NEGATIVE Urine Nitrite NEGATIVE Urine Bilirubin NEGATIVE Urine Urobilinogen 0.2 (NORMAL) Ur Leukocyte Esterase NEGATIVE Ur Microscopic Review NOT INDICATED Urine Culture Comments NOT INDICATED Urine HCG, Qual NEGATIVE Nasal Adenovirus (PCR) NOT DETECTED Nasal B. parapertussis DNA (PCR) NOT DETECTED Nasal Coronavir 229E PCR NOT DETECTED Nasal Coronavir HKU1 PCR NOT DETECTED Nasal Coronavir NL63 PCR NOT DETECTED Nasal Coronavir OC43 PCR NOT DETECTED Nasal Enterovir/Rhinovir PCR NOT DETECTED Nasal Influenza B PCR NOT DETECTED Nasal Influenza A PCR NOT DETECTED Nasal Parainfluen 1 PCR NOT DETECTED Nasal Parainfluen 2 PCR NOT DETECTED Nasal Parainfluen 3 PCR NOT DETECTED Nasal Parainfluen 4 PCR DETECTED A Nasal RSV (PCR) NOT DETECTED Nasal B.pertussis DNA PCR NOT DETECTED Nasal C.pneumoniae (PCR) NOT DETECTED Aly Human Metapneumo PCR NOT DETECTED Nasal M.pneumoniae (PCR) NOT DETECTED Nasal SARS-CoV-2 (PCR) NOT DETECTED Group A Strep Rapid Negative 07/06/22 07/06/22 07/06/22 22:04 22:04 23:35 WBC 4.8 RBC 4.07 L Hgb 12.2 Hct 39.0 MCV 95.8 MCH 30.0 MCHC 31.3 L RDW 13.2 Plt Count 77 L MPV 12.1 H Neut # (Auto) 3.5 Lymph # (Auto) 0.6 L [place] # (Auto) 0.6 Eos # (Auto) 0.1 Baso # (Auto) 0.0 Absolute Nucleated RBC 0.00 Nucleated RBC % 0.0 Platelet Estimate DECREASED (<130,000) POC Whole Bld Glucose 102 H Lactic Acid 0.7 Urine Color Urine Clarity Urine pH Ur Specific [place] Urine Protein Urine Glucose (UA) Urine Ketones Urine Occult Blood Urine Nitrite Urine Bilirubin Urine Urobilinogen Ur Leukocyte Esterase Ur Microscopic Review Urine Culture Comments Urine HCG, Qual Nasal Adenovirus (PCR) Nasal B. parapertussis DNA (PCR) Nasal Coronavir 229E PCR Nasal Coronavir HKU1 PCR Nasal Coronavir NL63 PCR Nasal Coronavir OC43 PCR Nasal Enterovir/Rhinovir PCR Nasal Influenza B PCR Nasal Influenza A PCR Nasal Parainfluen 1 PCR Nasal Parainfluen 2 PCR Nasal Parainfluen 3 PCR Nasal Parainfluen 4 PCR Nasal RSV (PCR) Nasal B.pertussis DNA PCR Nasal C.pneumoniae (PCR) Aly Human Metapneumo PCR Nasal M.pneumoniae (PCR) Nasal SARS-CoV-2 (PCR) Group A Strep Rapid PD Medical Decision Making - ED course Complexity details: reviewed results, re-evaluated patient, considered diffe rential, d/w patient ED course: The patient was treated symptomatically with IV fluids, Tylenol, ibuprofen, and Zofran. Given her diabetes and fever, she was worked up broadly with CBC, ER abdominal panel, lactic acid level, respiratory PCR, Rapid strep, and urinalysis, all of which were ordered and reviewed by me. Despite her seeming urinary symptoms, her urinalysis was completely negative. test was also negative. CBC showed a normal white blood cell count and the lactic acid level was normal. ER abdominal panel did not show any significant abnormalit ies. Rapid strep was negative and the respiratory PCR was positive for parainfluenza virus. I discussed with the patient that most likely, her fever and aches are from the parainfluenza. I do not know why she has a sense of dysuria but there is no urinary tract infection and no indication at this point to treat for this. She is stable for discharge home. We have discussed home management of the symptoms as well as the usual indications for return.. Departure - Departure Disposition: Home, Self Care Clinical Impression: Parainfluenza virus infection Condition: Stable Instructions: ED Viral Syndrome Comments: Your viral panel showed positive for parainfluenza virus. This virus is not influenza but does cause somewhat similar symptoms and can last anywhere from a few days to a week or 2. You have been extensively worked up to determine whether anything more serious is causing your Symptoms, and the remainder of your labs look good. Your urinalysis is completely normal. You have also normal white blood cell count and your blood glucose is 102. You may take ibuprofen and Tylenol at home for the fever if you wish. Please drink 8 to 10 cups of water per day. If you feel as though you are getting significantly worse, please seek medical reevaluation. Discharge Date/Time: 07/07/22 00:47
[2022-07-06 22:06] LABS: RAPID STREP SCREEN Negative (Negative)
[2022-07-06] MEDS ORDERED: SODIUM CHLORIDE 0.9% 1,000 ML IV STA (22:11)
[2022-07-06] MEDS ORDERED: ACETAMINOPHEN 325 MG TABLET PO STA (22:32)
[2022-07-06] MEDS ORDERED: IBUPROFEN 600 MG TABLET PO STA (22:32)
[2022-07-06] MEDS ORDERED: ONDANSETRON 4 MG/2 ML VIAL IVP STA (22:32)
[2022-07-06 22:49] LABS: B. PARAPERTUSSIS- RESP PCR PAN NOT DETECTED; B. PERTUSSIS- RESP PCR PANEL NOT DETECTED; C. PNEUMONIAE- RESP PCR PANEL NOT DETECTED; CORONAVIRUS 229E-RESP PCR NOT DETECTED; CORONAVIRUS HKU1-RESP PCR NOT DETECTED; CORONAVIRUS NL63-RESP PCR NOT DETECTED; CORONAVIRUS OC43-RESP PCR NOT DETECTED; HUMAN METAPNEUMOVIRUS NOT DETECTED; INFLUENZA A- RESP PCR PANEL NOT DETECTED; INFLUENZA B - RESP PCR PANEL NOT DETECTED; M. PNEUMONIAE- RESP PCR PANEL NOT DETECTED; PARAINFLUENZA VIRUS 1 NOT DETECTED; PARAINFLUENZA VIRUS 2 NOT DETECTED; PARAINFLUENZA VIRUS 3 NOT DETECTED; PARAINFLUENZA VIRUS 4 DETECTED; RHINOVIRUS/ENTEROVIRUS NOT DETECTED; RSV- RESP PCR PANEL NOT DETECTED; SARS-CoV-2 -RESP PCR PANEL NOT DETECTED
[2022-07-06 23:53] LABS: BASOPHILS % (AUTO) 0.4 %; EOSINOPHILS # (AUTO) 0.1 10^3/uL (0.0-0.7); EOSINOPHILS % (AUTO) 1.5 %; HGB - HEMOGLOBIN 12.2 g/dL (12.0-16.0); LYMPHOCYTES # (AUTO) 0.6 10^3/uL (1.5-3.5); LYMPHOCYTES % (AUTO) 13.1 %; MEAN CORPUSCULAR HGB CONC 31.3 g/dL (32.0-36.0); MEAN CORPUSCULAR VOLUME 95.8 fL (81.0-99.0); MEAN PLATELET VOLUME 12.1 fL (7.9-10.8); MONOCYTES # (AUTO) 0.6 10^3/uL (0.0-1.0); MONOCYTES % (AUTO) 12.5 %; NEUTROPHILS # (AUTO) 3.5 10^3/uL (1.5-6.6); NEUTROPHILS % (AUTO) 72.3 %; PLT - PLATELET COUNT 77 10^3/uL (130-450); RED BLOOD COUNT 4.07 10^6/uL (4.20-5.40); RED CELL DISTRIBUTION WIDTH 13.2 % (12.0-15.0); WHITE BLOOD COUNT 4.8 x10^3/uL (4.8-10.8)
[2022-07-07 00:26] LABS: PLATELET ESTIMATE, MANUAL DECREASED (<130,000) (NORMAL)
[2022-07-07 00:49] VITALS: BP 103/59
== END 2022-07-07 00:47 | disposition home or self-care (01) ==
LOC: ED 21:15
DX: B34.8 Other viral infections of unspecified site (principal); R30.0 Dysuria; Z79.4 Long term (current) use of insulin; Z20.822 Contact with and (suspected) exposure to COVID-19; E10.65 Type 1 diabetes mellitus with hyperglycemia
CPT/HCPCS: 36415; 81003; 81025; 83036; 83605; 85025; 87040; 87070; 87430; 87633; 96374; 99283; 99284; A9270; 81001; 87086

== ENCOUNTER 2022-10-11 08:00 | Outpatient (CLI) | payer MEDICAID ==
[2022-10-11 16:40] LABS: BILIRUBIN,URINE NEGATIVE (NEGATIVE); GLUCOSE, URINE (UA) NEGATIVE (NEGATIVE); KETONES,URINE (UA) NEGATIVE (NEGATIVE); LEUKOCYTE ESTERASE, URINE NEGATIVE (NEGATIVE); NITRITE,URINE NEGATIVE (NEGATIVE); OCCULT BLOOD,URINE NEGATIVE (NEGATIVE); PH,URINE 6.5 PH (5.0-7.5); PROTEIN,URINE NEGATIVE (NEGATIVE); UROBILINOGEN,URINE 0.2 (NORMAL) E.U./dL (NORMAL)
[2022-10-11 16:47] LABS: CLARITY,URINE CLEAR (CLEAR)
[2022-10-11 17:07] LABS: BACTERIA,URINE Rare /HPF (None Seen); RBC,URINE 0-5 /HPF (0-5); SQUAMOUS EPITHELIAL CELL,UR FEW Squamous (<= Few); WBC,URINE 0-3 /HPF (0-5)
== END 2022-10-11 23:59 | disposition home or self-care (01) ==
LOC: LAB.WC 08:00
PROVIDERS: ATTEND Obstetrics & Gynecology
DX: Z34.90 Encounter for supervision of normal pregnancy, unspecified, unspecified trimester (principal)
CPT/HCPCS: 81001; 87086

== ENCOUNTER 2022-10-17 10:46 | Outpatient (CLI) | payer MEDICAID ==
[2022-10-17 11:04] LABS: BASOPHILS % (AUTO) 0.3 %; EOSINOPHILS # (AUTO) 0.1 10^3/uL (0.0-0.7); EOSINOPHILS % (AUTO) 0.9 %; HGB - HEMOGLOBIN 13.4 g/dL (12.0-16.0); LYMPHOCYTES # (AUTO) 1.9 10^3/uL (1.5-3.5); LYMPHOCYTES % (AUTO) 29.2 %; MEAN CORPUSCULAR HEMOGLOBIN 30.4 pg (27.0-31.0); MEAN CORPUSCULAR HGB CONC 32.7 g/dL (32.0-36.0); MEAN PLATELET VOLUME 10.5 fL (7.9-10.8); MONOCYTES # (AUTO) 0.5 10^3/uL (0.0-1.0); MONOCYTES % (AUTO) 7.4 %; NEUTROPHILS # (AUTO) 4.1 10^3/uL (1.5-6.6); PLT - PLATELET COUNT 208 10^3/uL (130-450); RED BLOOD COUNT 4.41 10^6/uL (4.20-5.40); RED CELL DISTRIBUTION WIDTH 13.1 % (12.0-15.0); WHITE BLOOD COUNT 6.6 x10^3/uL (4.8-10.8)
[2022-10-18 10:09] LABS: VARICELLA-ZOSTER AB IGG 281 index (Immune >165)
[2022-10-18 11:12] LABS: RPR Non Reactive (Non Reactive)
[2022-10-18 13:11] LABS: HBsAG SCREEN Negative (Negative)
[2022-10-19 00:07] LABS: HCV AB Non Reactive (Non Reactive); HIV SCREEN 4TH GENERATION Non Reactive (Non Reactive)
== END 2022-10-17 10:47 | disposition home or self-care (01) ==
LOC: LAB 10:46
PROVIDERS: ATTEND Obstetrics & Gynecology
DX: Z34.90 Encounter for supervision of normal pregnancy, unspecified, unspecified trimester (principal)
CPT/HCPCS: 36415; 85025; 86592; 86762; 86787; 86803; 86850; 86900; 86901; 87340; 87389

== ENCOUNTER 2023-01-26 09:11 | Emergency (ER) | payer MEDICAID ==
[2023-01-26 09:49] LABS: BASOPHILS % (AUTO) 0.2 %; HCT - HEMATOCRIT 41.1 % (37.0-47.0); HGB - HEMOGLOBIN 13.5 g/dL (12.0-16.0); LYMPHOCYTES # (AUTO) 0.6 10^3/uL (1.5-3.5); LYMPHOCYTES % (AUTO) 6.1 %; MEAN CORPUSCULAR HGB CONC 32.8 g/dL (32.0-36.0); MEAN CORPUSCULAR VOLUME 94.5 fL (81.0-99.0); MEAN PLATELET VOLUME 10.5 fL (7.9-10.8); MONOCYTES # (AUTO) 0.4 10^3/uL (0.0-1.0); MONOCYTES % (AUTO) 3.9 %; NEUTROPHILS # (AUTO) 8.4 10^3/uL (1.5-6.6); NEUTROPHILS % (AUTO) 89.4 %; PLT - PLATELET COUNT 180 10^3/uL (130-450); RED BLOOD COUNT 4.35 10^6/uL (4.20-5.40); RED CELL DISTRIBUTION WIDTH 13.3 % (12.0-15.0); WHITE BLOOD COUNT 9.4 x10^3/uL (4.8-10.8)
--- NOTE | 2023-01-26 09:56 | ED Physician Documentation ---
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: section - Present Medications Home Medications: Ambulatory Orders Medication Instructions Recorded Confirmed Insulin Glargine [Lantus Solostar] 10 units SUBQ QPM 07/27/21 07/06/22 Insulin Lispro [Humalog Kwikpen 1 - 4 unit SUBQ TIDWM 07/27/21 07/06/22 U-100] Ondansetron Odt [Zofran] 4 mg TL Q6H PRN #10 tablet 01/26/23 Promethazine Supp [Phenergan Supp] 25 mg MN Q6H PRN #5 supp 01/26/23 - Allergies Allergies/Adverse Reactions: Allergies Allergy/AdvReac Type Severity Reaction Status Date / Time No Known Drug Allergies Allergy Verified 07/06/22 21:58 - Social History Does the pt smoke?: No Smoking Status: Never smoker Does the pt drink ETOH?: No Does the pt have substance abuse?: No - Immunizations Immunizations are current?: Yes - POLST Patient has POLST: No Results - Vitals Vitals: Oxygen O2 Source Room air - Labs Labs: Laboratory Tests 01/26/23 01/26/23 01/26/23 09:39 09:39 09:39 WBC 9.4 RBC 4.35 Hgb 13.5 Hct 41.1 MCV 94.5 MCH 31.0 MCHC 32.8 RDW 13.3 Plt Count 180 MPV 10.5 Neut # (Auto) 8.4 H Lymph # (Auto) 0.6 L [place] # (Auto) 0.4 Eos # (Auto) 0.0 Baso # (Auto) 0.0 Absolute Nucleated RBC 0.00 Nucleated RBC % 0.0 Sodium 136 Potassium 3.5 Chloride 103 Carbon Dioxide 24 Anion Gap 9.0 BUN 15 Creatinine 0.5 L Estimated GFR (MDRD) 148 Glucose 109 H Calcium 8.4 L Magnesium 1.6 L Total Bilirubin 1.2 H AST 15 ALT 11 Alkaline Phosphatase 43 Total Protein 6.9 Albumin 3.8 Globulin 3.1 Albumin/Globulin Ratio 1.2 Lipase < 10 L Serum Ketones 01/26/23 09:39 WBC RBC Hgb Hct MCV MCH MCHC RDW Plt Count MPV Neut # (Auto) Lymph # (Auto) [place] # (Auto) Eos # (Auto) Baso # (Auto) Absolute Nucleated RBC Nucleated RBC % Sodium Potassium Chloride Carbon Dioxide Anion Gap BUN Creatinine Estimated GFR (MDRD) Glucose Calcium Magnesium Total Bilirubin AST ALT Alkaline Phosphatase Total Protein Albumin Globulin Albumin/Globulin Ratio Lipase Serum Ketones NEGATIVE PD Medical Decision Making - ED course Complexity details: reviewed results (she is high risk due to diabetes and prior C-sec. Gets care at [facility]. Has insulin pump. ), re-evaluated patient (feeling much better with IV fluids and meds for nausea. Given Zofran, famotidine, then Phenergan when still nuaeated.), considered differential (nausea vomiting and some diarrhea abruptly. 22 wks . Has not has hyperemesis preior in . Presume GE. Not having focal abd pain. Can give IV fluids and meds. ), d/w patient Reviewed Lab Results: she states glucose had been high this morning, but gave herself a bolus with pump. It is good at 109 here and is negative for ketones on serum testing. She is tolerating PO intke in ED prior to discharge. Mag 1.6, K at low end normal at 3.5. Ketones negative. Bedside US showed fetus c/w dates, and has movement, HR visible, and placenta appears in place on uterine wall. No noted free fluid in pelvis. Drug Therapy Requiring Monitoring for Toxicity: Given IV fluids, antiemetics. Labs showing low potassium and Mag, so given IV supplement for Mag, as most wilson, and then LR liter, that has Potassium in it. Departure - Departure Disposition: 01 Home, Self Care Clinical Impression: Nausea vomiting and diarrhea, Viral gastroenteritis, Volume depletion, gastrointestinal loss Qualifiers: Weeks of gestation: 22 weeks Qualified Code(s): Z3A.22 - 22 weeks gestation of Condition: Stable Record reviewed to determine appropriate education?: Yes Instructions: ED Nausea Vomiting Prescriptions: Promethazine Supp [Phenergan Supp] 25 mg MN Q6H PRN #5 supp PRN Reason: Nausea / Vomiting Ondansetron Odt [Zofran] 4 mg TL Q6H PRN #10 tablet PRN Reason: Nausea / Vomiting Comments: This does sound likely a viral stomach flu since your 2 sons had had this as well. Presumably there will improve within 2 or 3 days. You were given a couple of liters of IV fluid to help rehydrate and restore your volume. Continue with small frequent fluids through the day. Ondansetron if needed for nausea. If you are having nausea or vomiting despite that, I also prescribed promethazine suppositories. [place] food initially and increase as tolerated. Your blood test showed slightly low magnesium and a borderline low potassium. Look to foods that have these in them over the next several days to week once your intake is improved. Your blood test did not show any signs of ketones. Continue with your normal diabetes care. I sent your prescriptions to your preferred pharmacy. Return if not improved well over the next day or 2. Return if worse. Forms: PCP List Discharge Date/Time: 01/26/23 15:00
[2023-01-26 10:04] LABS: ALBUMIN 3.8 g/dL (3.2-5.5); ALBUMIN/GLOBULIN RATIO 1.2 (1.0-2.2); ALKALINE PHOSPHATASE 43 IU/L (42-121); ALT ALANINE AMINOTRANSFERASE 11 IU/L (10-60); AST ASPARTATE AMINOTRANSFERASE 15 IU/L (10-42); BILIRUBIN,TOTAL 1.2 mg/dL (0.2-1.0); BUN - BLOOD UREA NITROGEN 15 mg/dL (6-20); CALCIUM 8.4 mg/dL (8.5-10.3); CARBON DIOXIDE - CO2 24 mmol/L (21-32); CHLORIDE 103 mmol/L (101-111); CREATININE 0.5 mg/dL (0.6-1.3); GFR - MDRD 148 (>89); GLUCOSE 109 mg/dL (74-104); POTASSIUM 3.5 mmol/L (3.5-4.5); SODIUM 136 mmol/L (135-145); TOTAL PROTEIN 6.9 g/dL (6.4-8.9)
[2023-01-26 10:15] LABS: LIPASE < 10 U/L (11-82)
[2023-01-26] MEDS ORDERED: FAMOTIDINE 20 MG/2 ML VIAL IVP STA (10:17)
[2023-01-26] MEDS ORDERED: SODIUM CHLORIDE 0.9% 1,000 ML IV STA (10:17)
[2023-01-26] MEDS ORDERED: ONDANSETRON 4 MG/2 ML VIAL IVP STA (10:17)
[2023-01-26] MEDS ORDERED: MAGNESIUM SULFATE 2 GRAM 2 GM/50 ML BAG IV ONE (11:14)
[2023-01-26] MEDS ORDERED: LACTATED RINGERS 1,000 ML IV STA (11:14)
[2023-01-26] MEDS ORDERED: PROMETHAZINE INJ 12.5 MG in SODIUM CHLORIDE 0.9% 50 ML IV STA (11:18)
[2023-01-26 12:09] VITALS: O2SAT 100
[2023-01-26 14:26] VITALS: BP 95/53
== END 2023-01-26 15:00 | disposition home or self-care (01) ==
LOC: ED 09:11
DX: O99.612 Diseases of the digestive system complicating pregnancy, second trimester (principal); A08.4 Viral intestinal infection, unspecified; E86.9 Volume depletion, unspecified; Z3A.22 22 weeks gestation of pregnancy; O24.012 Pre-existing type 1 diabetes mellitus, in pregnancy, second trimester
CPT/HCPCS: 36415; 80053; 82009; 83690; 83735; 85025; 96365; 96366; 96367; 96375; 99283; 99284; J7040; J7120

== ENCOUNTER 2023-04-24 18:51 | Outpatient (CLI) | payer MEDICAID ==
[2023-04-24 19:13] VITALS: BP 96/57
--- NOTE | 2023-04-24 20:12 | PROCEDURE REPORT ---
- HPI EDU 06/02/23 Gestation 34 Weeks and 3 Days 3 Para 2 Vital Signs Temperature 98.2 F 04/24/23 19:05 Heart Rate 82 04/24/23 19:05 Respiratory Rate 16 04/24/23 19:05 Blood Pressure 96/57 L 04/24/23 19:05 - NST Procedure NST Procedure Start Date 04/24/23 Start Time 19:00 Stop Time 19:30 Vibroacoustic Stimulation Used No Patient States Movement Yes - Results and Plan Plan: . Patient is a 27-year-old -0-0-2 at 34 weeks 3 days gestation here for NST. NST Performed 04/25/2023 NST Read 04/25/2023 FHT: 140 bpm baseline, moderate variability, accelerations present, no decelerations. Reactive NST [place]: Quiescent Diagnosis 34 weeks gestation Pregestational diabetes Continue with scheduled NST.
== END 2023-04-24 19:40 | disposition home or self-care (01) ==
LOC: WFO 18:51 → FBP 18:54 → WFO 19:40
PROVIDERS: ATTEND Obstetrics & Gynecology
DX: O24.013 Pre-existing type 1 diabetes mellitus, in pregnancy, third trimester (principal); E10.65 Type 1 diabetes mellitus with hyperglycemia; Z3A.34 34 weeks gestation of pregnancy
CPT/HCPCS: 59025

== ENCOUNTER 2023-05-01 18:49 | Outpatient (CLI) | payer MEDICAID ==
[2023-05-01 19:06] VITALS: BP 117/65; O2SAT 99
--- NOTE | 2023-05-02 20:05 | PROCEDURE REPORT ---
- HPI Current EDU 06/06/23 Gestation 34 Weeks and 6 Days 3 Para 2 Vital Signs Temperature 97.9 F 05/01/23 19:03 Heart Rate 88 05/01/23 19:03 Respiratory Rate 17 05/01/23 19:03 Blood Pressure 117/65 05/01/23 19:03 O2 Saturation 99 05/01/23 19:03 Temperature 97.9 F 05/01/23 19:30 Heart Rate 85 05/01/23 19:30 Respiratory Rate 18 05/01/23 19:30 Blood Pressure 117/65 05/01/23 19:30 O2 Saturation 99 05/01/23 19:03 If not protocol: Oxygen Flow, liters/minute - NST Procedure NST Procedure Start Date 05/01/23 Start Time 18:58 Stop Time 19:29 Vibroacoustic Stimulation Used No Patient States Movement Yes - Results and Plan Plan: Patient is a 27-year-old -0-0-2 at 34 weeks gestation here for NST. NST Performed 05/01/2023 NST Read 05/01/2023 FHT: 145 bpm baseline, moderate variability, accelerations present, no decelerations. Reactive NST [place]: Quiescent Diagnosis 34 weeks gestation Type 1 diabetes Continue with scheduled NST.
== END 2023-05-01 19:35 | disposition home or self-care (01) ==
LOC: WFO 18:49 → FBP 18:52 → WFO 19:35
PROVIDERS: ATTEND Obstetrics & Gynecology
DX: O09.93 Supervision of high risk pregnancy, unspecified, third trimester (principal); O24.013 Pre-existing type 1 diabetes mellitus, in pregnancy, third trimester; E10.65 Type 1 diabetes mellitus with hyperglycemia; Z3A.34 34 weeks gestation of pregnancy
CPT/HCPCS: 59025

== ENCOUNTER 2023-05-08 18:46 | Outpatient (CLI) | payer MEDICAID ==
[2023-05-08 20:17] VITALS: BP 125/82
--- NOTE | 2023-05-09 08:23 | PROCEDURE REPORT ---
- HPI Current EDU 06/06/23 Gestation 35 Weeks and 6 Days 3 Para 2 Vital Signs Temperature 98.1 F 05/08/23 18:57 Heart Rate 86 05/08/23 18:57 Respiratory Rate 16 05/08/23 18:57 Blood Pressure 119/70 05/08/23 18:57 Temperature 97.9 F 05/08/23 20:12 Heart Rate 83 05/08/23 20:12 Respiratory Rate 16 05/08/23 18:57 Blood Pressure 125/82 H 05/08/23 20:12 O2 Saturation If not protocol: Oxygen Flow, liters/minute - NST Procedure NST Procedure Start Date 05/08/23 Start Time 18:54 Stop Time 19:37 Vibroacoustic Stimulation Used No Patient States Movement Yes - Results and Plan Plan: Patient is a 27-year-old -0-0-2 at 35 weeks 6 days gestation here for NST. NST Performed 05/08/2021 NST Read 05/08/2021 FHT: 145 bpm baseline, moderate variability, accelerations present, no decelerations. Reactive NST [place]: Rare Diagnosis 35 weeks gestation Pregestational diabetes Continue with scheduled NST.
== END 2023-05-08 20:10 | disposition home or self-care (01) ==
LOC: WFO 18:46 → FBP 18:47 → WFO 20:10
PROVIDERS: ATTEND Obstetrics & Gynecology
DX: O24.013 Pre-existing type 1 diabetes mellitus, in pregnancy, third trimester (principal); E10.65 Type 1 diabetes mellitus with hyperglycemia; Z3A.35 35 weeks gestation of pregnancy
CPT/HCPCS: 59025

== ENCOUNTER 2023-05-22 18:47 | Outpatient (CLI) | payer MEDICAID ==
[2023-05-22 19:01] VITALS: BP 115/70
--- NOTE | 2023-05-25 17:53 | PROCEDURE REPORT ---
- HPI Diagnosis/Indication for NST: Pre- Diabetes Current EDU 06/06/23 Gestation 37 Weeks and 6 Days 3 Para 2 Vital Signs Temperature 97.9 F 05/22/23 18:55 Heart Rate 77 05/22/23 18:55 Respiratory Rate 16 05/22/23 18:55 Blood Pressure 115/70 05/22/23 18:55 Temperature 97.9 F 05/22/23 18:55 Heart Rate 77 05/22/23 18:55 Respiratory Rate 16 05/22/23 18:55 Blood Pressure 115/70 05/22/23 18:55 O2 Saturation If not protocol: Oxygen Flow, liters/minute - NST Procedure NST Procedure Start Date 05/22/23 Start Time 18:52 Stop Time 19:46 Vibroacoustic Stimulation Used No Patient States Movement No NST reivewed. normal baseline. moderate variability. + acels. no decels. assessment: reactive NST Plan: care as scheduled.
== END 2023-05-22 19:55 | disposition home or self-care (01) ==
LOC: WFO 18:47 → FBP 18:49 → WFO 19:55
PROVIDERS: ATTEND Obstetrics & Gynecology
DX: O24.013 Pre-existing type 1 diabetes mellitus, in pregnancy, third trimester (principal); O09.93 Supervision of high risk pregnancy, unspecified, third trimester; Z3A.37 37 weeks gestation of pregnancy
CPT/HCPCS: 59025

== ENCOUNTER 2023-05-30 18:27 | Emergency (ER) | payer MEDICAID ==
--- NOTE | 2023-05-30 19:10 | ED Physician Documentation ---
History of Present Illness - Stated complaint Stated Complaint: POST OP COMPLICATIONS - Chief complaint Chief Complaint: General - Additonal information Additional information: 28-year-old female G3, P3 presents emergency department for possible concerns of postop infection. Patient had a on May 23 she feels like she is overall been doing well her blood sugars are within normal limits today she noticed some purulent drainage to the right side of her incision. She has had no fevers or chills no systemic signs or symptoms of infection. 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 - Present Medications Home Medications: Ambulatory Orders Medication Instructions Recorded Confirmed Insulin Glargine [Lantus Solostar] 10 units SUBQ QPM 07/27/21 07/06/22 Insulin Lispro [Humalog Kwikpen 1 - 4 unit SUBQ TIDWM 07/27/21 07/06/22 U-100] Ondansetron Odt [Zofran] 4 mg TL Q6H PRN #10 tablet 01/26/23 Promethazine Supp [Phenergan Supp] 25 mg RI Q6H PRN #5 supp 01/26/23 Mupirocin 2% Oint [Bactroban 2% 1 applic TOP BID #50 gm 05/30/23 Oint] - Allergies Allergies/Adverse Reactions: Allergies Allergy/AdvReac Type Severity Reaction Status Date / Time No Known Drug Allergies Allergy Verified 07/06/22 21:58 - Social History Does the pt smoke?: No Smoking Status: Never smoker Does the pt drink ETOH?: No Does the pt have substance abuse?: No - Immunizations Immunizations are current?: Yes - POLST Patient has POLST: No PD ED PE NORMAL - Vitals Vital signs reviewed: Yes - General General: Alert and oriented X 3, No acute distress, Well developed/nourished - Derm Derm: Normal color, Warm and dry, No rash, Other (4 to 6 inch lateral incision to suprapubic region. Incision is appearing to be well-healed no erythema surrounding the incision mild purulent drainage to the right lateral portion. Incision is approximated with Steri-Strips.) - Psych Psych: Normal mood, Normal affect Results - Vitals Vitals: Vital Signs - 24 hr 05/30/23 05/30/23 19:02 19:44 Temperature 36.5 C Heart Rate 73 73 Respiratory 19 19 Rate Blood Pressure 123/84 H O2 Saturation 99 99 Oxygen O2 Source Room air PD Medical Decision Making - ED course ED course: 28-year-old female presents emergency department for concerns of infected post incision. Is about a 4 to 6 inch incision to her suprapubic region in the fold of her pannus. On the right lateral portion there is a very scant amount of purulent drainage. Steri-Strips removed as they have been on for total of almost 7 days wound edges appear to be well-approximated there does appear to be some skin irritation from where the Steri-Strips were. We placed a small amount of topical mupirocin antibiotic ointment over the incision with an ABD pad patient was given wound instructions strict return precautions and told to follow-up with ANESTHESIOLOGY RESIDENT as directed. All questions answered safe for discharge. Departure - Departure Disposition: 01 Home, Self Care Clinical Impression: Postoperative wound infection Instructions: ED Wound Care Prescriptions: Mupirocin 2% Oint [Bactroban 2% Oint] 1 applic TOP BID #50 gm Comments: Thank for trusting us with your care. The wound infection that you are seeing is very minimal I do not believe that you need any oral antibiotics to take care of this I think something topical like mupirocin twice a day for the next 5 days should help clear this up. As we discussed shower use soap and water to cleanse the wound once a day and then apply the mupirocin topical antibiotic ointment with an ABD pad to keep the area very dry to help with any sort of wound dehiscing. Please come back to the emergency department for started to notice her blood sugars are trending up, fevers or chills, or worsening signs and symptoms of infection. Forms: PCP List Discharge Date/Time: 05/30/23 19:43
[2023-05-30 19:22] VITALS: BP 123/84; O2SAT 99
[2023-05-30] MEDS: MUPIROCIN 2% OINT 1 GM TOP STA (19:36)
== END 2023-05-30 19:43 | disposition home or self-care (01) ==
LOC: ED 18:27
DX: O86.00 Infection of obstetric surgical wound, unspecified (principal); O24.03 Pre-existing type 1 diabetes mellitus, in the puerperium
CPT/HCPCS: 99282; 99283; A9270

== ENCOUNTER 2023-06-29 17:14 | Emergency (ER) | payer MEDICAID ==
[2023-06-29 17:37] VITALS: BP 108/57; O2SAT 100
--- NOTE | 2023-06-29 17:37 | ED Physician Documentation ---
PD HPI WOUND RECHECK - Stated complaint Stated Complaint: POST OP SCAR INFECTION - Chief complaint Chief Complaint: Wound - Histroy obtained from History obtained from: Patient - History of Present Illness Location: Abdomen Timing - onset: Today Pain level max: 0 Pain level now: 0 Associated symptoms: Drainage (Serosanguineous, nonpurulent). No: Fever, Redness - Additional information Additional information: Patient is a 28-year-old female who presents to the emergency department stating that she had a about a month ago at [facility] in [place]. She states that today her wound opened and there was a small amount of clear/bloody drainage. No fevers. No chills. 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 - Present Medications Home Medications: Ambulatory Orders Medication Instructions Recorded Confirmed Insulin Glargine [Lantus Solostar] 10 units SUBQ QPM 07/27/21 07/06/22 Insulin Lispro [Humalog Kwikpen 1 - 4 unit SUBQ TIDWM 07/27/21 07/06/22 U-100] Ondansetron Odt [Zofran] 4 mg TL Q6H PRN #10 tablet 01/26/23 Promethazine Supp [Phenergan Supp] [address] Q6H PRN #5 supp 01/26/23 Mupirocin 2% Oint [Bactroban 2% 1 applic TOP BID #50 gm 05/30/23 Oint] - Allergies Allergies/Adverse Reactions: Allergies Allergy/AdvReac Type Severity Reaction Status Date / Time No Known Drug Allergies Allergy Verified 06/29/23 17:31 - Social History Does the pt smoke?: No Smoking Status: Never smoker Does the pt drink ETOH?: No Does the pt have substance abuse?: No - Immunizations Immunizations are current?: Yes - POLST Patient has POLST: No PD ED PE NORMAL - Vitals Vital signs reviewed: Yes - General General: Alert and oriented X 3, No acute distress - Abdomen Abdomen: Soft, Non tender, Non distended, Other (The center of the scar has a 0.2 cm dehiscence with a small amount of serosanguineous drainage. No erythema. No purulence) - Derm Derm: Warm and dry - Neuro Neuro: Alert and oriented X 3 - Psych Psych: Normal mood, Normal affect Results - Vitals Vitals: Vital Signs - 24 hr 06/29/23 17:21 Temperature 37 C Heart Rate 87 Respiratory 16 Rate Blood Pressure 108/57 L O2 Saturation 100 Oxygen O2 Source Room air PD Medical Decision Making - ED course Complexity details: considered differential, d/w patient ED course: 28-year-old female with a small postoperative seroma that opened spontaneously today. No evidence of infection. No cellulitis. No abscess. We will continue supportive care and have her follow-up with her doctor as needed. Patient counseled regarding signs and symptoms for which I believe and urgent re- evaluation would be necessary. Patient with good understanding of and agreement to plan and is comfortable going home at this time This document was made in part using voice recognition software. While efforts are made to proofread this document, sound alike and grammatical errors may occur. Departure - Departure Disposition: 01 Home, Self Care Clinical Impression: Seroma after procedure Condition: Good Instructions: ED Seroma Post Op Follow-Up: Maddy Doss PA-C [Primary Care Provider] - Comments: It appears that you had a small postoperative seroma that ruptured today. These are not dangerous and usually resolve on their own. Please follow-up with your doctor as needed for any further care. Forms: PCP List
== END 2023-06-29 17:56 | disposition home or self-care (01) ==
LOC: ED 17:14
DX: O90.2 Hematoma of obstetric wound (principal); E10.9 Type 1 diabetes mellitus without complications
CPT/HCPCS: 99282; 99283